=== PATIENT | female | born 1955 | race Caucasian/White ===

== ENCOUNTER 2022-07-31 18:15 | Emergency (ER) | payer BC, SELFPAY ==
[2022-07-31 18:54] VITALS: BP 157/89; PULSE 72; RESP 18; TEMP 36.7; O2SAT 97; BMI 19.3
--- NOTE | 2022-07-31 19:06 | ED_ITS ---
HPI - General Adult General Time Seen by Provider: 19:07 Date Seen: 07/31/22 Chief complaint: Shoulder Injury/Pain Stated complaint: Shoulder Pain Time Seen by Provider: 07/31/22 18:18 Source: patient Mode of arrival: ambulatory Limitations: no limitations History of Present Illness HPI narrative: Patient is a 67 year white female who 3 weeks ago was doing some gardening and yd work and felt a discomfort in her left anterior shoulder, worse with movement, worse with palpation. No swelling of the arm. She has generally healthy other than some arthritic conditions, she has had a hip replaced. Generally doctors in [place], she was down visiting her father in the morning who had an ulcer bleeding issue today. Her arm has been throbbing today. No anterior chest pain, no neck pain or back pain no falls or injuries. Related Data Home Medications Medication Instructions Recorded Confirmed acetaminophen 325 mg tablet (Pain 325 mg PO Q6H PRN 07/31/22 07/31/22 Relief (acetaminophen)) ibuprofen 400 mg tablet 400 mg PO Q6-8H PRN 07/31/22 07/31/22 Allergies Allergy/AdvReac Type Severity Reaction Status Date / Time Sulfa (Sulfonamide Allergy Verified 07/31/22 18:52 Antibiotics) Review of Systems Status of ROS: Reports: 6 or more systems reviewed and unremarkable except as noted in History and below PFSH PFS Social History Smoking Status: Never smoker How often do you have a drink containing alcohol: never AUDIT-C Alcohol total score: 0 Non-prescribed substance use: denies use Exam Narrative: Exam Narrative: Objective: Vital signs show slightly elevated blood pressure Patient alert orient x3 very pleasant Neck left shoulder exam shows exquisite tenderness in her bicipital tendon over her anterior shoulder. She has got actually full flexion extension but with certain movements she gets a twinge in the arm consistent with her pain. Strength in the upper left upper extremity is symmetric to the right and strong, normal sensation, good peripheral perfusion. Const: Vital Signs, click to edit/add: Vital Signs - 24 hr 07/31/22 18:54 Temperature 98.1 F Pulse Rate [Right Pulse Oximeter] 72 Respiratory Rate 18 Blood Pressure [Ri ght Upper Arm] 157/89 H Pulse Oximetry 97 Oxygen Delivery Me thod Room Air Course Vital Signs Vital signs: Initial Vital Signs Temperature 98.1 F 07/31/22 18:54 Temperature Source Oral 07/31/22 18:54 Pulse Rate 72 07/31/22 18:54 Respiratory Rate 18 07/31/22 18:54 Blood Pressure 157/89 H 07/31/22 18:54 Blood Pressure Mean 111 07/31/22 18:54 Blood Pressure Position Sitting 07/31/22 18:54 Pulse Oximetry 97 07/31/22 18:54 Oxygen Delivery Method 07/31/22 18:54 Vital Signs Temperature 98.1 F 07/31/22 18:54 Pulse Rate 72 07/31/22 18:54 Respiratory Rate 18 07/31/22 18:54 Blood Pressure 157/89 H 07/31/22 18:54 Pulse Oximetry 97 07/31/22 18:54 Oxygen Delivery Method 07/31/22 18:54 Temperature 98.1 F 07/31/22 18:54 Pulse Rate 72 07/31/22 18:54 Respiratory Rate 18 07/31/22 18:54 Blood Pressure 157/89 H 07/31/22 18:54 Pulse Oximetry 97 07/31/22 18:54 Oxygen Delivery Method 07/31/22 18:54 Medical Decision Making MDM Narrative Medical decision making narrative: Patient likely has bicipital tendinitis. Would recommend a sling, offered Medrol as well as Aleve, and at this point she would like to just simply try the leave ice and the sling. She will follow up with [facility] in the next few days. Return here problems or concerns. She is comfortable plan. Sling will be given. Discharge Plan Discharge Clinical Impression: Bicipital tendinitis Patient Disposition: Home w/ Parent or Adult Condition: Stable Additional Instructions: Ice to the left anterior shoulder 10 minutes 6 times a day as possible for the next few days, Aleve 2 twice a day for the next 3-5 days, sling to be worn daily, may take arm out of the sling and do gentle arm circles. Follow up with Orthopedics in the next 3-5 days. Return to ED sooner as needed Activity Level: Light activity Activity Detail: Sling to the left arm and light use of the left upper extremity Discharge Diet: Regular Prescriptions: No Action ibuprofen 400 mg tablet 400 mg PO Q6-8H PRN acetaminophen [Pain Relief (acetaminophen)] 325 mg tablet 325 mg PO Q6H PRN Follow Up/Referrals: Buddy Holland MD [Primary Care Provider] - Stand Alone Forms: brick&mobile Info Instructions
== END 2022-07-31 19:28 | disposition home or self-care (01) ==
LOC: ED 19:17
PROVIDERS: Emergency Provider Family Medicine; PCP Student in an Organized Health Care Education/Training Program
DX: M75.22 Bicipital tendinitis, left shoulder (principal)
CPT/HCPCS: 99283

== ENCOUNTER 2022-08-31 15:10 | Outpatient (RCR) | payer BC, SELFPAY | END 2022-11-17 12:58 | disposition home or self-care (01) | PROVIDERS: PCP Student in an Organized Health Care Education/Training Program; Visit Provider Student in an Organized Health Care Education/Training Program | DX: M54.16 Radiculopathy, lumbar region (principal); M25.512 Pain in left shoulder; Z51.89 Encounter for other specified aftercare; M25.511 Pain in right shoulder | CPT/HCPCS: 97110; 97162 ==

== ENCOUNTER 2022-12-01 15:30 | Outpatient (RCR) | payer BC, SELFPAY | END 2023-04-06 23:59 | disposition home or self-care (01) | PROVIDERS: PCP Student in an Organized Health Care Education/Training Program; Visit Provider Physician Assistant | DX: M25.512 Pain in left shoulder (principal); Z51.89 Encounter for other specified aftercare | CPT/HCPCS: 97110; 97162 ==

== ENCOUNTER 2023-05-16 15:35 | Outpatient (CLI) | payer BC, SELFPAY | END 2023-05-16 15:36 | disposition home or self-care (01) | LOC: NFLDREF 15:42 | PROVIDERS: PCP Internal Medicine; Visit Provider Internal Medicine | DX: Z00.00 Encounter for general adult medical examination without abnormal findings (principal); Z13.6 Encounter for screening for cardiovascular disorders | CPT/HCPCS: 80061 ==

== ENCOUNTER 2023-06-01 15:21 | Outpatient (CLI) | payer BC, SELFPAY ==
--- OUTSIDE RECORDS SUMMARY | 2023-06-01 15:24 | XMS_ITS | Continuity of Care Document ---
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 Name Role Phone Jeevan Avelar MD Unavailable Unavailable Allergies, Adverse Reactions, Alerts Substance Reaction Status Criticality Sulfa (Sulfonamide Antibiotics) Hives Active No Information Medications Medication Instructions Dosage Effective Dates (start - stop) Status Comments CALCIUM (unknown strength) Not Available - Active VITAMIN D3 (unknown strength) Not Available - Active ADVIL (unknown strength) Not Available - Active MULTIVITAMINS (unknown strength) Not Available - No Longer Active Procedures Procedure Date Office/Outpatient Visit,Est, Mod 2019 X-Ray Exam Of Neck Spine, 4+ Views Office/Outpatient Visit,Est, Mod 2018 Office/Outpatient Visit,Est, Mod 2018 Office/Outpatient Visit,Est, Mod 2018 X-Ray Exam Of Neck Spine2-3 Views X-Ray Exam Lower Spine 2-3 Views 2018 Office/Outpatient Visit,Est, Mod 2017 X-Ray Exam Lower Spine 2-3 Views 2017 Office/Outpatient Visit,Est, Mod 2017 X-Ray Exam Lower Spine 2-3 Views 2017 Office/Outpatient Visit,Est, Mod 2016 X-Ray Exam Lower Spine 2-3 Views 2016 Postop Followup Visit X-Ray Exam Lower Spine 2-3 Views 2016 Arthdsis Post/Posterolatrl/Postinterbody Lumbar Insert Spine Fixation, Posterior 2016 Insert interbody cage w/fusion 17 Allograft, Spine Surg, Morselized Autograft, Spine Surgery, Local 017 Pa Arthdsis Post/Posterolatrl/Postinterb tsering Lumbar Pa Assist Insert Spine Fixation, Posteri or PA Assist Insert interbody cage w/fusion Office/Outpatient Visit,Est, Mod 2016 Office/Outpatient Visit,New, Mod 2016 X-Ray Exam Lwr Spine, Min 4 Views Office/outpatient visit,est, mod 2010 X-ray exam lower spine 2-3 views 2010 Office/outpatient visit,est, mod 2009 X-ray exam lower spine 2-3 views 2009 Advance Directives Directive Yes / No Effective Date File Name No Information Encounters Encounter Description Practice Location Reason(s) For Visit Diagnoses Date Provider Providers Copied on Encounter Office/Outpa tient Visit,Est, Mod [facility], [address] [place] [address], [id number], [place] tel:[phone] [facility] Other spondylosis with myelopathy, cervical regionSpinal stenosis, lumbar region with neurogenic claudicationO ther spondylosis, lumbar regionArthrod esis status 0 Rosio Jeevan. [facility], [address] [place] [address], [address], [id number], [place]. tel:[phone] Office/Outpa tient Visit,Est, Mod [facility], [address] [place] [address], [id number], [place] [phone] [facility] Spinal stenosis, lumbar region with neurogenic claudicationA rthrodesis statusOther spondylosis with myelopathy, cervical regionOther spondylosis, lumbar region 201 9 Rosoi Jeevan. [facility], [address] [place] [address], [address] [place] [address], [id number], [place]. tel:[phone] Office/Outpa tient Visit,Est, Mod [facility], [address] [place] [address], [id number], [place] tel: [phone] [facility] Arthrodesis statusOther spondylosis, lumbar regionOther spondylosis with myelopathy, cervical regionSpinal stenosis, lumbar region with neurogenic claudication 9 Rosio Chew. [facility], [address], [address], [place], [place], [id number], . tel: [phone] Office/Outpa tient Visit,Est, Mod [facility], [address], [place], [place], [id number], [place] tel: [phone] [facility] Arthrodesis statusSpinal stenosis, lumbar region with neurogenic claudicationO ther spondylosis, lumbar regionOther spondylosis with myelopathy, cervical region 9 Pelkola Kimberlyn. [facility], [address] [place] [address] [place] [address], [id number], . tel: [phone] Office/Outpa tient Visit,Est, Mod [facility], [address] [place] [address], [id number], [place] tel: [phone] [facility] Spinal stenosis, lumbar region with neurogenic claudicationA rthrodesis status Pelkola Kimberlyn. [facility], [address] [place] [address] [address], [place], [place], [id number], . tel:[phone] Office/Outpa tient Visit,Est, Mod [facility], [address], [place], [place], [id number], [place] tel: [phone] [facility] Spinal stenosis, lumbar region with neurogenic claudicationA rthrodesis status 8 Pelkola Kimberlyn. [facility], [address] [place] [address] [address], [place], [id number], . tel:[phone] Office/Outpa tient Visit,Est, Mod [facility], [address] [place] [address], [id number], [place] tel: [phone] [facility] Spondylolisth esis, lumbar regionSpinal stenosis, lumbar region with neurogenic claudication Dec 7 Pelkola Kimberlyn. [facility], [address], [place], [place], [id number], [place]. tel:[phone] [facility], [address], [place], [place], [id number], [place] tel:[phone] [facility] Spondylolisth esis, lumbar regionSpinal stenosis, lumbar region Sep- 7 Pelkola Kimberlyn. [facility], [address] [place] [address] Street [address], [place], [place], [id number], [place]. tel:[phone] [facility], [address], [place], [place], [id number], [place] tel:[phone] [facility] No Information 7 Rosio Chew. [facility], [address] [place] [address], [address], [place], [place], [id number], [place]. tel:[phone] Office/Outpa tient Visit,Est, Mod [facility], [address], [place], [place], [id number], [place] tel:[phone] [facility] Other spondylosis, lumbar regionRadicul opathy, lumbar region Nov-2 7 Rosio Chew. [facility], [address], [address], [place], [place], [id number], [place]. tel:[phone] Referring Provider: Jeevan Avelar, [facility] [address] [place] [address], [address], [place], [address] . tel:[phone] Office/Outpa tient Visit,New, Mod [facility], [address], [place], [place], [id number], [place] tel:[phone] [facility] Other spondylosis, lumbar region Nov-0 7 No Information Office/outpa tient visit,est, mod Z [facility] [place], [address], [place], [address], [place] tel:[phone] [facility] No Information 1 Rosio Chew. [facility], [address], [address], [place], [place], [id number], . tel:[phone] Referring Provider: Jeevan Avelar, [facility] [address], [address], [place], [address] . tel:[phone] Office/outpa tient visit,est, mod Z [facility], [address] [place], [place] [address], [place], [address], tel:[phone] [facility] No Information 8201 0 Rosio Chew. [facility], [address] [place] [address], [address], [place], [place], [id number], . tel:[phone] Referring Provider: Jeevan Avelar, [facility] [address], [address], [place], [address] . tel:[phone] Family History Family Member Type Diagnosis Age At Onset No Information Payers Payer name Insurance type Covered democrat ID Marie hale(s) [facility] [id number] [facility] [id number] Social History Type Description Quantity Date Captured Comments Alcohol Use Details Unknown Caffeine Use Details Unknown Tobacco Use Status Never smoked tobacco 2019 Smoking Status Never smoker Sex Female Vital Signs Date / Time: Height Weight BMI Pulse Rate Blood Pressure Temperature Respiratory Rate Body Surface Area Head Circumference Head Circ. Percentile Wt./Cristhian. Percentile BMI percentile Pulse Ox Inhaled Ox 11:04 AM 65.25 in 55.338 kg (122.00 lbs) 20.1 5 kg/m eter (2) 99.00 F Chief Complaint And Reason For Visit No Information Reason For Referral Reason For Referral No Information Plan Of Treatment Date Type Action Status Future Order: Radiology Order AP Lateral Cervical (APlatcerv), Ordered on: Ordered Future Order: Radiology Order AP /Lat/Flex/Ext Lumb (APLatFlExL), Ordered on: Ordered History Of Present Illness Encounter Date Complaint History Of Prese nt Illness No Information Functional Status Date Functional Assessmen t No Information Instructions Date Instruction Additional Infor mation No Information Assessments Type Assessment Date assessment Other spondylosis with myelopath y, cervical region assessment Spinal stenosis, lumbar region w ith neurogenic claudication assessment Other spondylosis, lumbar region assessment Arthrodesis status Patient Care Teams Name Effective Dates (start - stop) Status Members No Information
--- NOTE | 2023-06-01 15:30 | CRLHL7_ITS ---
For Patients: As a result of the Century Cures Act, medical imaging exams and procedure reports are released immediately into your electronic medical record. You may view this report before your referring provider. If you have questions, please contact your health care provider. DXA BONE MINERAL DENSITY STUDY Reason for exam: Screening. Current height (in): 65.0. Weight (lb): 117. Menopause age: 60. Ethnicity: White. 1. Have you had a previous hip or vertebral fracture? No. 2. Have you had any fractures during your adult life which did not result from significant trauma (e.g., auto accident) No. 3. Did either of your parents have a hip fracture? No. 4. Do you smoke? No. 5. Have you ever taken Glucocorticoids? No. 6. Do you have rheumatoid arthritis? No. 7. Do you have secondary osteoporosis? No. 8. Do you drink 3 or more alcoholic drinks per day? No. 9. Are you being treated for osteoporosis? No. 10. Have you ever taken any of the following medications: ANSWER: YES, vitamin D and calcium. Actonel, Evista, Fosamax, Miacalcin, Reclast, Boniva, Forteo, HRT (i.e. estrogen/hormone therapy), Protelos, Prolia, other ??? please specify. 11. Do you have any of the following medical conditions: ANSWER: YES, HYSTERECTOMY, MATT, TKA, 3-SPINE FUSION. Anorexia or bulimia, asthma or emphysema, end stage renal disease, hyperparathyroidism, any seizure disorders, cancer, inflammatory bowel diseases. 12. What was your maximum height (inches)? 66. 13. Do you perform weight bearing exercise regularly? Yes. 14. Do you regularly consume dairy products? Yes. 15. Do you drink caffeinated beverages? Yes. 16. At what age did your period start? 15. 17. Are you premenopausal? No. 18. How many full term pregnancies have you had? 0. 19. Have you ever missed your period for more than 6 months in a row (not including or menopause)? No. TECHNIQUE: Bone mineral density study was performed using the [employer]. FINDINGS: The results of the study expressed as bone mineral density (BMD) are as follows: Neck Left: BMD: 0.736 g/cm2. T-score: -1.0. Z-score: 0.5. Total Left: BMD: 0.795 g/cm2. T-score: -1.2. Z-score: 0.1. Radius Left 33%: BMD: 0.573 g/cm2. T-score: -2.0. Z-score: -0.3. IMPRESSION: Osteopenia. *Comparison exams done prior to 02/2020 were performed on different unit, [employer]. FRAX 10-year Fracture Risk Major Osteoporotic Fracture: 7.0 percent Hip Fracture: 0.6 percent Reported Risk Factors: [place] () Neck BMD= 0.736, BMI= 19.5 Arnaldo Martinez M.D. Diagnostic Radiologist [email or web address] JASON/dale DW/Dictated by: Arnaldo Martinez MD @ 06/02/2023 12:18:00 PM (Electronically Signed)
== END 2023-06-01 15:22 | disposition home or self-care (01) ==
LOC: RAD 15:22
PROVIDERS: PCP Internal Medicine; Visit Provider Internal Medicine
DX: Z13.820 Encounter for screening for osteoporosis (principal); M85.88 Other specified disorders of bone density and structure, other site
CPT/HCPCS: 77080

== ENCOUNTER 2023-06-02 15:07 | Outpatient (CLI) | payer BC, SELFPAY ==
--- OUTSIDE RECORDS SUMMARY | 2023-06-02 15:10 | XMS_ITS | Continuity of Care Document ---
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 [facility], [address] [place] [address], [address], [id number], [place]. tel:[phone] Office/Outpa tient Visit,Est, Mod [facility], [address] [place] [address], [id number], [place] [phone] [facility] Spinal stenosis, lumbar region with neurogenic claudicationA rthrodesis statusOther spondylosis with myelopathy, cervical regionOther spondylosis, lumbar region 201 9 Rosio Jeevan. [facility], [address] [place] [address], [address] [place] [address], [id number], [place]. tel:[phone] Office/Outpa tient Visit,Est, Mod [facility], [address] [place] [address], [id number], [place] tel: [phone] [facility] Arthrodesis statusOther spondylosis, lumbar regionOther spondylosis with myelopathy, cervical regionSpinal stenosis, lumbar region with neurogenic claudication 9 Rosio Chew. [facility], [address], [address], [place], [place], [id number], . tel: [phone] Office/Outpa tient Visit,Est, Mod [facility], [address], [place], [place], [id number], [place] tel: [phone] [facility] Arthrodesis statusSpinal stenosis, lumbar region with neurogenic claudicationO ther spondylosis, lumbar regionOther spondylosis with myelopathy, cervical region 9 Pelkola Kimberlyn. [facility], [address] [place] [address] [place] [address], [id number], . tel: [phone] Office/Outpa tient Visit,Est, Mod [facility], [address] [place] [address], [id number], [place] tel: [phone] [facility] Spinal stenosis, lumbar region with neurogenic claudicationA rthrodesis status Pelkola Kimberlyn. [facility], [address] [place] [address] [address], [place], [place], [id number], . tel:[phone] Office/Outpa tient Visit,Est, Mod [facility], [address], [place], [place], [id number], [place] tel: [phone] [facility] Spinal stenosis, lumbar region with neurogenic claudicationA rthrodesis status 8 Pelkola Kimberlyn. [facility], [address] [place] [address] [address], [place], [id number], . tel:[phone] Office/Outpa tient Visit,Est, Mod [facility], [address] [place] [address], [id number], [place] tel: [phone] [facility] Spondylolisth esis, lumbar regionSpinal stenosis, lumbar region with neurogenic claudication Dec 7 Pelkola Kimberlyn. [facility], [address], [place], [place], [id number], [place]. tel:[phone] [facility], [address], [place], [place], [id number], [place] tel:[phone] [facility] Spondylolisth esis, lumbar regionSpinal stenosis, lumbar region Sep- 7 Pelkola Kimberlyn. [facility], [address] [place] [address] Street [address], [place], [place], [id number], [place]. tel:[phone] [facility], [address], [place], [place], [id number], [place] tel:[phone] [facility] No Information 7 Rosio Chew. [facility], [address] [place] [address], [address], [place], [place], [id number], [place]. tel:[phone] Office/Outpa tient Visit,Est, Mod [facility], [address], [place], [place], [id number], [place] tel:[phone] [facility] Other spondylosis, lumbar regionRadicul opathy, lumbar region Nov-2 7 Rosio Chew. [facility], [address], [address], [place], [place], [id number], [place]. tel:[phone] Referring Provider: Jeevan Avelar, [facility] [address] [place] [address], [address], [place], [address] . tel:[phone] Office/Outpa tient Visit,New, Mod [facility], [address], [place], [place], [id number], [place] tel:[phone] [facility] Other spondylosis, lumbar region Nov-0 7 No Information Office/outpa tient visit,est, mod Z [facility] [place], [address] [facility], [place], [address], [place] tel:[phone] [facility] No Information 1 Rosio Chew. [facility], [address], [address], [place], [place], [id number], . tel:[phone] Referring Provider: Jeevan Avelar, [facility] [address], [address], [place], [address] . tel:[phone] Office/outpa tient visit,est, mod Z [facility], [address] [place], [place] [address], [place], [address], tel:[phone] [facility] No Information 8201 0 Rosio Chew. [facility], [address] [place] [address], [address], [place], [place], [id number], . tel:[phone] Referring Provider: Jeevan Avelar, [facility] [address], [address], [place], [address] . tel:[phone] Family History Family Member Type Diagnosis Age At Onset No Information Payers Payer name Insurance type Covered green party ID Marie hale(s) [facility] [id number] [facility] [id number] Social History Type Description Quantity Date Captured [...]
--- NOTE | 2023-06-02 15:20 | CRLHL7_ITS ---
For Patients: As a result of the Cures Act, medical imaging exams and procedure reports are released immediately into your electronic medical record. You may view this report before your referring provider. If you have questions, please contact your health care provider. BILATERAL SCREENING MAMMOGRAM WITH COMPUTER-AIDED DETECTION AND TOMOSYNTHESIS TECHNIQUE: CC and MLO views were obtained. These mammographic images have been obtained using full-field digital technique. These mammographic images were interpreted with the benefit of computer-aided detection. Breast Tomosynthesis was used in this interpretation. COMPARISON FILM: 05/09/22, 04/27/21, 04/15/20. FINDINGS: The breasts are extremely dense, which lowers the sensitivity of mammography IMPRESSION: There is no radiographic evidence for malignancy. ASSESSMENT: BI-RADS Category 1: Negative RECOMMENDATION: Routine screening mammogram in 1 year. A lay language report of this examination will be provided to the patient. Arnaldo Martniez M.D. Diagnostic Radiologist [email or web address] JASON/ginna Transcribed: 1:31 p.osmani chacko/Dictated by: Arnaldo Martinez MD @ 06/05/2023 12:20:00 PM (Electronically Signed)
== END 2023-06-02 15:08 | disposition home or self-care (01) ==
LOC: MAMMO 15:08
PROVIDERS: PCP Internal Medicine; Visit Provider Internal Medicine
DX: Z12.31 Encounter for screening mammogram for malignant neoplasm of breast (principal); R92.2 Inconclusive mammogram
CPT/HCPCS: 77063; 77067

== ENCOUNTER 2024-05-15 15:41 | Outpatient (CLI) | payer BC, SELFPAY | END 2024-05-15 15:42 | disposition home or self-care (01) | LOC: NFLDREF 15:44 | PROVIDERS: PCP Internal Medicine; Visit Provider Internal Medicine | DX: R51.9 Headache, unspecified (principal); M25.519 Pain in unspecified shoulder | CPT/HCPCS: 84484 ==

== ENCOUNTER 2024-06-07 15:12 | Outpatient (CLI) | payer BC, SELFPAY ==
--- OUTSIDE RECORDS SUMMARY | 2024-06-07 15:15 | XMS_ITS | Encounter Summary ---
Author Organization [facility] Address [address] [place] [id number] Care Team Providers Care Sole Molding Machine Operator Name Role Phone Elsewhere, Pcp Primary Care Provider Unavailabl e Reason for Visit * Outpatient (Routine) - Closed Specialty Diagnoses / Procedures Referred By Shruthi gracia Referred To Contact Orthopedic Surgery Buddy Holland M.D. [address] [place] [phone] Buddy Holland M.D. [address] [place] [phone] Referral ID Status Reason Start Date Expiration Date Visits Re quested Visits Authorized [id number] Closed 04/18/2024 10/18/2025 1 1 Encounter Details Date Type Department Care Team (Late st Contact Info) Description 04/19/2024 9:00 AM CDT Office Visit Department of Orthopedic Surgery in [place], [place] [address] [place] [phone] Buddy Holland M.D. [address] [place] [phone] Fusion Cervical Spine Status Post (Primary Dx) Social History Tobacco Use Types Packs/Day Years Used Date Smoking Tobacco: Never Smokeless Tobacco: Never Alcohol Use Standard Drinks/Week Comments Yes 3 (1 standard drink = 0.6 oz pur e alcohol) [facility] Utilities Answer Date Recorded In the past 12 months has e electric, gas, oil, or water company threatened to shut off services in your home? No 03/14/2024 Humiliation, Afraid, Rape, and Kick questionnair e Answer Date Recorded Within the last year, have y ou been afraid of your partner or ex-partner? No 03/14/2024 Within the last year, have y ou been humiliated or emotionally abused in other ways by your partner or ex-partner? No Within the last year, have y ou been kicked, hit, slapped, or otherwise physically hurt by your partner or ex-partner? No 03/14/2024 Within the last year, have y ou been raped or forced to have any kind of sexual activity by your partner or ex-partner? No 03/14/2024 Social Connection and Isolat ion Panel [NHANES] Answer Date Recorded In a typical week, how many times do you talk on the phone with family, friends, or neighbors? Twice a week 07/01/2022 How often do you get togethe r with friends or relatives? Once a week 07/01/2022 How often do you attend [facility] or scientologist services? More than 4 times per year 07/01/2022 Do you belong to any clubs o r organizations such as buddhism groups, unions, fraternal or athletic groups, or school groups? Yes 07/01/2022 How often do you attend meet ings of the clubs or organizations you belong to? More than 4 times per year 07/01/2022 Are you , , di vorced, , never , or living with a partner? 07/01/2022 AUDIT-C Answer Date Recorded Q1: How often do you have a drink containing alc ohol? 2-3 times a week 07/01/2022 Q2: How many drinks containi ng alcohol do you have on a typical day when you are drinking? 1 or 2 07/01/2022 Q3: How often do you have si x or more drinks on one occasion? Never 07/01/2022 Overall Financial Resource Strain (CARDIA) Answe r Date Recorded How hard is it for you to pa y for the very basics like food, housing, medical care, and heating? Not very hard 08/02/2023 [facility] - Occupational Stress Questionnaire Answer Date Recorded Do you feel stress - tense, restless, nervous, or anxious, or unable to sleep at night because your mind is troubled all the time - these days? To some extent 07/01/2022 Exercise Vital Sign Answer Date Recorde d On average, how many days pe r week do you engage in moderate to strenuous exercise (like a brisk walk)? 5 days 08/02/2023 On average, how many minutes do you engage in exercise at this level? 40 min 08/02/2023 Hunger Vital Sign Answer Date Recorded Within the past 12 months, y ou worried that your food would run out before you got the money to buy more. Never true 03/14/20 24 Within the past 12 months, t he food you bought just didn't last and you didn't have money to get more. Never true 03/14/2024 PRAPARE - Transportation Answer Date Re corded In the past 12 months, has l ack of transportation kept you from medical appointments or from getting medications? No 02/17 In the past 12 months, has l ack of transportation kept you from meetings, work, or from getting things needed for daily living? No 03/14/2024 Nutrition Answer Date Recorded On average, how many serving s of fruits and vegetables do you eat per day (serving size is equal to 1 cup or approximately the size of a tennis ball)? 3-5 08/02/2023 Dental Answer Date Recorded Dental: Regular Dentist Yes 12/25/19 Employment Answer Date Recorded Employment status Employed and actively working without restrictions 08/02/2023 Housing Stability Answer Date Recorded What is your living situation today? I have a [place] place to live 03/14/2024 Education Answer Date Recorded What is the highest level of school you have completed or the highest degree you have received? Bachelor's degree (e.g., BA, AB, BS) 03/08/2019 Sex and Gender Information Value Date Recorded Sex Assigned at Female 03/31/2018 3:46 PM CDT Gender Identity Female 03/31/2018 3:46 PM CDT Sexual Orientation Straight 11/09/2020 5: 08 PM LPN HOME HEALTH documented as of this encounter Progress Notes * Buddy Holland M.D. - 04/19/2024 9:00 AM CDT SUBJECTIVE HISTORY OF PRESENT ILLNESS Mrs. Arroyo returns to us today. Of note, she is status post previous anterior cervical fusion with myself several years ago back in 2020. She has done well from this. Unfortunately, she has had some mild exacerbation of some neck pain and paresthesias. This seems to be somewhat improved from whenwe had last spoken to her. Nonetheless, given concern, she did re-present today for further evaluation. OBJECTIVE PHYSICAL EXAMINATION Musculoskeletal: She is neurologically unchanged since our last visit. Her incision is well healed.Her strength is full in bilateral upper and lower extremities. She has no focal deficits. DIAGNOSTICS Imaging including x-rays and MRI scan of the cervical spine demonstrate stable well-healed fusion from C4-7 with evidence of some adjacent segment disk degeneration and moderate stenosis at the C3-4 segment with no active cord signal change. ASSESSMENT / PLAN At this time, I had a long discussion with the patient. Certainly overall, while she does have someadjacent segment stenosis at C3-4, she seems to be mildly symptomatic from it at this time. As such, I would recommend continued observation nonoperative treatment, and we did discuss the signs and symptoms to watch for with regard to a progressive myelopathy or radiculopathy. She expressed understanding and agreement of the plan. She understands how to contact my service back. All questions wereanswered. Buddy Holland M.D. CT CT Job ID: [id number] documented in this encounter Plan of Treatment Upcoming Encounters Date Type Department Care Team (Late st Contact Info) Description 06/20/2024 3:00 PM CDT Clinical Communication Virtual Review in [place], [place] 200 [place] [phone] 06/25/2024 1:15 PM CDT Appointment Department of Radiology, [facility], in [place], [place] [address] [place] [phone] Peace Key M.D. 06/25/2024 2:30 PM CDT Office Visit Department of Orthopedic Surgery in [address] [phone] Henry Rey P.A.-C., M.S. [address] [place] [phone] 08/20/2024 2:00 PM LPN HOME HEALTH Clinical Support Department of Sports Medicine in [address] [phone] Yan Stewart M.D. [address] [place] [phone] Darius Thompson P.T., D.P.T., [facility]-ABPTS [address] [place] [phone] documented as of this encounter Visit Diagnoses Diagnosis Fusion Cervical Spine Status Post- Primary documented in this encounter Care Teams Sole Molding Machine Operator Relationship Specialty Start Date End Date Elsewhere, Pcp PCP - General Family Medicine 02/11/21 documented as of this encounter
--- OUTSIDE RECORDS SUMMARY | 2024-06-07 15:15 | XMS_ITS ---
Author Organization [facility] Address [address] [place] [address] Care Team Providers Care Water Purifier Operator Name Role Phone Unavailable Unavailable Unavailable Surgery Details Not on file Complications Check Surgery Details section. Procedure Estimated Blood Loss Check Surgery Details section. Procedure Findings Check Surgery Details section. Procedure Specimens Taken Check Surgery Details section.
--- OUTSIDE RECORDS SUMMARY | 2024-06-07 15:15 | XMS_ITS | Encounter Summary ---
Author Organization [facility] Address [address] [place] [phone] Care Team Providers Care Green Marketing Analyst Name Role Phone Elsewhere, Pcp Primary Care Provider Unavailabl e Reason for Referral * Outpatient (Routine) - Closed Specialty Diagnoses / Procedures Referred By Shruthi gracia Referred To Contact Orthopedic Surgery Buddy Holland M.D. [address] [place] [phone] Buddy Holland M.D. [address] [place] [phone] Referral ID Status Reason Start Date Expiration Date Visits Re quested Visits Authorized [id number] Closed 04/18/2024 10/18/2025 1 1 Encounter Details Date Type Department Care Team (Late st Contact Info) Description 04/18/2024 Orders Only Department of Orthopedic Surgery in [place], [place] [address] [place] [phone] Buddy Holland M.D. [address] [place] [address] [place] [phone] Social History Tobacco Use Types Packs/Day Years Used Date Smoking Tobacco: Never Smokeless Tobacco: Never Alcohol Use Standard Drinks/Week Comments Yes 3 (1 standard drink = 0.6 oz pur e alcohol) [facility] Utilities Answer Date Recorded In the [...] week 07/01/2022 How often do you attend [facility] or yazidism services? More than 4 times per year 07/01/2022 Do you belong to any clubs o r organizations such as rastafari groups, unions, fraternal or athletic groups, or [...] care, and heating? Not very hard 08/02/2023 [facility] of Occupat ional 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 06/25/2024 2:30 PM CDT Office Visit Department of Orthopedic Surgery in [address] [phone] Henry Rey, PDanayA.-Polo., M.S. [address] [place] [phone] 08/20/2024 2:00 PM STONE DRILLER HELPER Clinical Support Department of Sports Medicine in [address] [phone] Yan Stewart M.D. [address] [place] [phone] Darius Thompson P.T., D.P.T., [facility]PT[facility] [address] [place] [phone] Scheduled Referrals Name Type Priority Associated Diagnoses Order Schedule Orthopedic Surgery office visit (clinic) Outpatient Referral Routine Expected: 04/18/2024, Expires: 07/19/2025 documented as of this encounter Visit Diagnoses Not on filedocumented in this encounter Care Teams Green Marketing Analyst Relationship Specialty Start Date End Date Elsewhere, Pcp PCP - General Family Medicine 02/11/21 documented as of this encounter
--- OUTSIDE RECORDS SUMMARY | 2024-06-07 15:15 | XMS_ITS | Encounter Summary ---
Author Organization [facility] Address [address] [place] [address] Care Team Providers Care Supervising Nurse Name Role Phone Elsewhere, Pcp Primary Care Provider Unavailabl e Reason for Referral * Outpatient (Routine) - Authorized Specialty Diagnoses / Procedures Referred By Shruthi gracia Referred To Contact Diagnoses Rotator Cuff Disorder Left Procedures Sports Medicine PT/AT - Ongoing Mao Cohen PCally-Beth [address] [place] [address] [facility] Referral ID Status Reason Start Date Expiration Date V isits Requested Visits Authorized [id number] Authorized 05/29/2024 05/29/2025 99 99 Reason for Visit * Outpatient (Routine) - Authorized Specialty Diagnoses / Procedures Referred By Contac t Referred To Contact Diagnoses Rotator Cuff Disorder Left Procedures Sports Medicine PT/AT - Ongoing Rst Spm Renetta [address] [place] [address] [facility] Referral ID Status Reason Start Date Expiration Date V isits Requested Visits Authorized [id number] Authorized 03/12/2024 03/12/2025 99 99 Encounter Details Date Type Department Care Team (Late st Contact Info) Description 05/29/2024 1:00 PM CDT Clinical Support Department of Sports Medicine in [place], [place] [address] [place] [phone] Yan Stewart M.D. [address] [place] [phone] Dianne Brunson P.T., D.P.T. [address] [place] [phone] Rotator Cuff Disorder Left (Primary Dx) Social History Tobacco Use Types Packs/Day Years Used Date Smoking Tobacco: Never Smokeless Tobacco: Never Alcohol Use Standard Drinks/Week Comments Yes 3 (1 standard drink = 0.6 oz pur e alcohol) [facility] Utilities Answer Date Recorded In the past 12 months has [employer], gas, oil, or water [employer] threatened to shut off services in your [...] week 07/01/2022 How often do you attend [facility] or mormon services? More than 4 times per year 07/01/2022 Do you belong to any clubs o r organizations such as shinto groups, unions, fraternal or athletic groups, or [...] care, and heating? Not very hard 08/02/2023 [facility] of Occupat ional Health - Occupational Stress Questionnaire Answer Date Recorded [...] your living situation today? I have a [facility] place to live 03/14/2024 Education Answer Date Recorded What is the highest level of school you have completed or the highest degree you have received? Bachelor's degree (e.g., BA, AB, BS) 03/08/2019 Sex and Gender Information Value Date Recorded Sex Assigned at Female 03/31/2018 3:46 PM CDT Gender Identity Female 03/31/2018 3:46 PM CDT Sexual Orientation Straight 11/09/2020 5: 08 PM MSWS documented as of this encounter Progress Notes * Michael Bhat, SPT - 05/29/2024 1:00 PM CDT Sports Medicine Physical Therapy post-operative Evaluation and Treatment SUBJECTIVE Patient's Name: Flaca Ty Cruz Referring Provider: No ref. provider found Visit Diagnosis: 1. Rotator Cuff Disorder Left Reason for Referral: Occupational therapy evaluation and treatment: pre-op Onset Date: 12/05/23 Payor: [employer] / Plan: [facility] [place] / Product Type: PPO / PERTINENT MEDICAL / SURGICAL HISTORY: Patient Active Problem List Diagnosis Tendinitis Bicipital Right Sprain Subscapularis Muscle Initial Right Fusion Cervical Spine Status Post Primary Osteoarthritis Hip Right Arthritis Spine (HCC) Pain Hip Right Dystrophic Toenail Onycholysis Callus [place] Foot Pain Foot Right Neuropathy Peripheral Pes Planus Right Hammer Toe Acquired Left Onychomycosis Pain Shoulder Left Primary Osteoarthritis Hip Left Past Surgical History: Procedure Laterality Date ARTHROPLASTY REPLACEMENT TOTAL HIP Right 03/24/2022 Procedure: Right ARTHROPLASTY REPLACEMENT TOTAL HIP.; Surgeon: Chris Zhang M.D.; Location: [facility] OR ARTHROPLASTY REPLACEMENT TOTAL HIP Left 03/14/2024 Procedure: Left ARTHROPLASTY REPLACEMENT TOTAL HIP.; Surgeon: Chris Zhang M.D.; Location: [facility] OR BACK SURGERY x 2 BUNIONECTOMY Bilateral FUSION SPINE ANTERIOR CERVICAL N/A 02/16/2021 Procedure: C5 corpectomy, C4-7 Fusion.; Surgeon: Buddy Holland M.D.; Location: [facility] ROMB OR JOINT REPLACEMENT Right 2021 TKA, revision 2005 OTHER CONVERTED SHX (SEE COMMENT) N/A 03/13/2006 >Manipulation under anesthesia. Knee OTHER SURGICAL HISTORY bunion both feet feet double bunio REPAIR ROTATOR CUFF SHOULDER Left 12/05/2023 Procedure: Left shoulder arthroscopic rotator cuff repair, biceps tenodesis, labral debridement, chondroplasty, acromioplasty, arthroscopic AC joint debridement.; Surgeon: Yan Stewart M.D.; Location: [facility] 15 OR SPINE SURGERY 2016 and January 1997 TOTAL HYSTERECTOMY 1995 Flaca Arroyo is a 68 y.o. female who presents to sports medicine physical therapy status post Left RTC repair, biceps tenodesis, SAD, labral debridement on 12/05/2023. She presents for evaluation and instruction in restrictions and exercise. Patient Comments: Patient had total hip surgery on 03/14/2024. Patient took a break from PT at this time but resumed PT without loss of function. Patient did start to have an increase in pain and believes she had some decrease in ROM in early to mid March. Patient experiences a lot of pain at night. Patient has had difficulties with side effects from anti-inflammatories. Patient also reports havingdifficulty with controlling steering wheel and opening/closing doors since pain increased in March. 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 Diagnostic Tests: Imaging No results found. PHYSICAL EXAM Pain: 4-04/27 new- 12/26, 12/26, 04/27 Observation: Range of motion: AROM: R shoulder- Full range of motion; Left Shoulder: flexion- 160, Abduction- 160, External Rotation- about 25, Extension: Full, Internal Rotation- L4 (right side was T10) Strength: Handheld Dynamometer (lbs) Symmetry % Date: 05/29/2024 Shoulder Left Right (Inv/Uninv) Comments Flexion @ 90?? 4.9* 14.4 34% Pain in anterior shoulder/arm Abduction @ 90?? 12.6* 14.4 88% Pain in anterior shoulder/arm ER @ side 6* 12.2 49% Most painful in anterior shoulder/arm IR @ side 8.9 12 74% Extension 9.8 11.8 83% QuickDASH: 54% (82% previously) TREATMENT Shoulder reassessment Sgym with Dr. Stewart - Patient's motion and strength are good and expected at this time but pain management should be prioritized. Patient should use ce 3-4 times per day to help with pain and give shoulder some rest Went over HEP All questions answered and addressed Access Code: [email or web address] URL: [email or web address] Date: 05/29/2024 Prepared by: Julissa Brunson Program Notes Re-start with isometrics until pain-free. Continue with wall slides, low rows, pulleys. Re-start ice 2-3x/day. Exercises - Isometric Shoulder External Rotation at Wall - 5-10 seconds hold - Standing Isometric Shoulder Internal Rotation at Doorway - 5-10 seconds hold - Isometric Shoulder Abduction at Wall - 5-10 seconds hold - Isometric Shoulder Flexion at Wall - 5-10 seconds hold - Isometric Shoulder Extension at Wall - 5-10 seconds hold Assessment Clinical Impression: Flaca is a 68 y.o. female who presents status post L RTC repair. She was able to demonstrate weight bearing restrictions and verbalize understanding of home exercise program and post-operative restrictions. Flaca would benefit from skilled physical therapy to address impairments and limitations related to surgery. I anticipate she will be able to return to prior level of function with continued skilled physical therapy. Flaca tolerated today's session well. Update 05/29/2024: Flaca is making anticipated progress.Flaca recently had hip surgery on 03/14/2024. At time of hip surgery, Flaca took break from shoulder rehab. Patient has since resumed PT and has been working on ROM and strength but has been limited by pain. Her internal rotation is the most limited for range of motion (L4 involved vs. T10 uninvolved). ER rotation and flexion strength are the most limited (49% and 34% of involved strength) both were pain limited. Patient has improved Quickdash score. Patient has been having increasing night pain and pain in general since early March. Patient was educated on using ice and rest to modulate pain for about a week before resuming strength exercises. Patient will continue to work on range of motion and will resume strength exercises when pain isbetter managed starting with isometrics. Rehab Potential: Ms. Arroyo has good potential to achieve established physical therapy goals within the time frame outlined below, provided she actively participates in her physical therapy treatment plan and home program. Functional Goals and Timeframes: PT Outpatient Goals PT Goal #1: Verbalize understanding of post op protcol -Met PT Goal #1 Date: 12/25/23 PT Goal #2: ROM 0-120 within 12 weeks PT Goal #2 Date: 03/18/24 PT Goal #3: Perform HEP as tolerated with assist -Met PT Goal #3 Date: 01/01/24 Plan Ms. Arroyo was educated regarding evaluative findings, diagnosis, prognosis, potential risks and benefits of rehabilitation interventions. A collaborative effort was used to establish goals and planof care. She was informed of her right to make decisions regarding her care, including refusal of examination or treatment or selection of services from another provider if desired. The treatment plan may be progressed or modified based upon her response to treatment. Treatment Plan: Start of Plan of Care: 05/29/2024 Treatment interventions may include: Plan Comments: Patient will continue with local PT and return in 3 months for Sgym. Patient's focusright now will be reducing pain with ice and rest. Patient will continue range of motion exercises and will resume isometric strength exercises when pain is better managed. Patient will progress fromisometric shoulder exercises when these are well tolerated. Patient agrees with the plan of care and goals Time Spent with Patient Therapeutic Interventions Therapeutic Exercise (min): 35 min Time Tracking Total Timed Units (min): 35 min Total Treatment Time (min): 35 min CAMILLE Cardenas Associated attestation - Dianne Brunson P.T., D.P.T. - 05/29/2024 7:13 PM CDT This therapist has reviewed all documentation and supervised today's session. This therapist agreeswith the plan of care developed in collaboration with the patient. * Yan Stewart M.D. - 05/29/2024 1:00 PM CDT REASON FOR FOLLOW-UP Flaca Arroyo is a 68 y.o. female who presents for follow-up approximately 6 months after shoulder surgery. HISTORY OF PRESENT ILLNESS Overall, she feels things are progressing. She did undergo hip replacement about 3 months after rotator cuff surgery. During that time she had a take a break on her shoulder physical therapy and she did ambulate with crutches/walker for period of time. She states that the shoulder seemed to tolerate that reasonably well. After completing the therapy for hip, she has resumed the PT for her shoulder. Unfortunately, she feels that she has been struggling a little bit and having a difficult time regaining her motion and strength. She also has discomfort in the shoulder. She has tried meloxicam without much benefit. She also tried Tylenol but had increased headaches. In the past, she has used Medrol Dosepak but has not had good success with him PHYSICAL EXAM Surgical incisions are healed. She has full active and passive elbow, wrist, and hand range of motion. Active shoulder ROM: - Abduction: 130 - Forward elevation: 150 - ER: 50 She is firing all muscles around the shoulder; manual muscle testing revealed appropriate strength in all directions. She has 5/5 internal rotation 4+ out of 5 external rotation and abduction. Neurovascularly intact. IMPRESSION/REPORT/PLAN 1. Status post left shoulder arthroscopic rotator cuff repair of the supraspinatus, biceps tenodesis, AC joint debridement, acromioplasty, and chondroplasty on 11/1923 She is doing reasonably well after surgery and it making forward progress. We are following the [facility] STANDARD Rotator Cuff Repair Rehabilitation Protocol. She did have a bit of a setback during her rehab due to the total hip replacement. Despite this, I still think her range of motion and strength are an excellent spot to be 6 months out from this surgery. However, she does still have painwith this and I would much prefer that she have the current function she has but be pain-free and she was in agreement. Accordingly, we are going to have her start icing the shoulder regularly which she has not been doing in the last few weeks. We are going to have her take a break on PT for the next week to see if we can get things calmed down. She will then resume physical therapy in 1-2 weeks and progress as tolerated.. We will plan to see her back in 2-3 months with PT. If any issues, questions, or concerns arise, wehave encouraged the patient contact our team. documented in this encounter Plan of Treatment Upcoming Encounters Date Type Department Care Team (Late st Contact Info) Description 06/20/2024 3:00 PM CDT Clinical Communication Virtual Review in [address] [phone] 06/25/2024 1:15 PM CDT Appointment Department of Radiology, [facility], in [address] [phone] Peace Key M.D. 06/25/2024 2:30 PM CDT Office Visit Department of Orthopedic Surgery in [address] [phone] Henry Rey, Jef-Polo., M.S. [address] [place] [phone] 08/20/2024 2:00 PM MSWS Clinical Support Department of Sports Medicine in [address] [phone] Yan Stewart M.D. [address] [place] [phone] Darius Thompson P.T., D.P.T., [facility] [address] [place] [phone] Scheduled Orders Name Type Priority Associated Diagnoses Orde r Schedule Sports Medicine PT/AT - Ongoing Procedures Routine Rotator Cuff Disorder Left Expected: 08/28/2024 (Approximate), Expires: 11/26/2024 documented as of this encounter Visit Diagnoses Diagnosis Rotator Cuff Disorder Left- Primary documented in this encounter Care Teams Supervising Nurse Relationship Specialty Start Date End Date Elsewhere, Pcp PCP - General Family Medicine 02/11/21 documented as of this encounter
--- OUTSIDE RECORDS SUMMARY | 2024-06-07 15:15 | XMS_ITS | Encounter Summary ---
Author Organization [facility] Address [address] [place] [phone] Care Team Providers Care Audit Spec Name Role Phone Elsewhere, Pcp Primary Care Provider Unavailabl e Encounter Details Date Type Department Care Team (Late st Contact Info) Description 04/29/2024 Orders Only Department of Orthopedic Surgery in [place], [place] [address] [place] [address] Mao Cohen S, P.A.-C. [address] [place] [address] Social History Tobacco Use Types Packs/Day Years Used Date Smoking Tobacco: Never Smokeless Tobacco: Never Alcohol Use Standard Drinks/Week Comments Yes 3 (1 standard drink = 0.6 oz pur e alcohol) [facility] Utilities Answer Date Recorded In the past [...] week 07/01/2022 How often do you attend chur or holiness services? More than 4 times per year 07/01/2022 Do you belong to any clubs o r organizations such as jewish groups, unions, fraternal or athletic groups, or [...] care, and heating? Not very hard 08/02/2023 [facility] of Occupat ional Health - Occupational Stress [...] your living situation today? I have a [facility] place to live 03/14/2024 Education Answer Date Recorded What is the highest level of school you have completed or the highest degree you have received? Bachelor's degree (e.g., BA, AB, BS) 03/08/2019 Sex and Gender Information Value Date Recorded Sex Assigned at Female 03/31/2018 3:46 PM CDT Gender Identity Female 03/31/2018 3:46 PM CDT Sexual Orientation Straight 11/09/2020 5: 08 PM [employer] documented as of this encounter Plan of Treatment Upcoming Encounters Date Type Department Care Team (Late st Contact Info) Description 06/20/2024 3:00 PM CDT Clinical Communication Virtual Review in [place], [place] [address] [place] [address] 06/25/2024 1:15 PM CDT Appointment Department of Radiology, [facility], in [place], [place] [address] [place] [address] Peace Key M.D. 06/25/2024 2:30 PM CDT Office Visit Department of Orthopedic Surgery in [place], [place] [address] [place] [phone] Henry Rey P.A.-C., M.S. [address] [place] [phone] 08/20/2024 2:00 PM [employer] ASS[employer]ANCE INTERN Clinical Support Department of Sports Medicine in [place], [place] [address] [place] [phone] Yan Stewart M.D. [address] [place] [phone] Darius Thompson P.T., D.P.T., [facility] [address] [place] [phone] documented as of this encounter Visit Diagnoses Not on filedocumented in this encounter Care Teams Audit Spec Relationship Specialty Start Date End Date Elsewhere, Pcp PCP - General Family Medicine 02/11/21 documented as of this encounter
--- OUTSIDE RECORDS SUMMARY | 2024-06-07 15:15 | XMS_ITS | Encounter Summary ---
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 [address] [place] [address] [facility] Referral ID Status Reason Start Date Expiration Date Visits Re quested Visits Authorized [id number] Closed 02/21/2024 02/20/2025 1 1 Encounter Details Date Type Department Care Team (Latest Contact Info) Description 04/15/2024 10:44 AM CDT - 04/15/2024 12:03 PM CDT Hospital Encounter Department of Radiology, [facility], in [place], [place] [address] [place] [address] Buddy Holland M.D. [address] [place] [phone] Fusion Cervical Spine Status Post; Stenosis Spinal Cervical Discharge Disposition: Home or Self Care Social History Tobacco Use Types Packs/Day Years Used Date Smoking Tobacco: Never Smokeless Tobacco: Never Alcohol Use Standard Drinks/Week Comments Yes 3 (1 standard drink = 0.6 oz pur e alcohol) [facility] Utilities Answer Date Recorded In the past 12 months has e [employer], gas, oil, or water [employer] threatened to shut off services in your [...] week 07/01/2022 How often do you attend [facility] or episcopal services? More than 4 times per year 07/01/2022 Do you belong to any clubs o r organizations such as uatsdin groups, unions, fraternal or athletic groups, or [...] care, and heating? Not very hard 08/02/2023 [facility] - Occupational Stress Questionnaire Answer Date Recorded [...] your living situation today? I have a [facility] place to live 03/14/2024 Education Answer Date Recorded What is the highest level of school you have completed or the highest degree you have received? Bachelor's degree (e.g., BA, AB, BS) 03/08/2019 Sex and Gender Information Value Date Recorded Sex Assigned at Female 03/31/2018 3:46 PM CDT Gender Identity Female 03/31/2018 3:46 PM CDT Sexual Orientation Straight 11/09/2020 5: 08 PM PEPPER PICKER documented as of this encounter Medications at Time of Discharge Medication Sig Dispensed Refills Start Date End Date aspirin 81 mg chewable tablet Chew 1 tablet (81 mg total) 2 (two) times a day with meals. Recommended to minimize risk of blood clot. Once completed, resume the usual dose of aspirin your primary provider may recommend. 84 tablet 03/14/2024 calcium carbonate-vitamin D3 1,250 mg (500 mg calcium)-5 mcg (200 Unit) per tablet Take 2 tablets by mouth daily with breakfast. clobetasoL (Temovate) 0.05 % cream Apply 1 Application topically 2 (two) times a day. Apply to area as instructed twice daily. 30 g 1 03/19/2024 cyanocobalamin (VITAMIN B12) 1,000 mcg tablet Take 1,000 mcg by mouth daily. DAILY MULTI-VITAMIN ORAL Take 1 tablet by mouth daily. 12/18/2023 oxyCODONE (Roxicodone) 5 mg immediate release tabletIndications:Acut e Pain Exception Take 1 tablet (5 mg total) by mouth every 4 (four) hours as needed for severe pain or score 7-10 of 10 Indication: Acute Pain Exception. 25 tablet 03/14/2024 traMADoL (Ultram) 50 mg tabletIndications:Acut e Pain Exception Take 1-2 tablets (50-100 mg total) by mouth every 8 (eight) hours as needed for pain Indications: Acute Pain Exception. Take 50 mg for pain 3-4. Take 100 mg for pain 5-6 40 tablet 03/14/2024 documented as of this encounter Plan of Treatment Upcoming Encounters Date Type Department Care Team (Late st Contact Info) Description 06/20/2024 3:00 PM CDT Clinical Communication Virtual Review in [place], [place] [address] [place] [address] 06/25/2024 1:15 PM CDT Appointment Department of Radiology, [facility], in [address] [phone] Peace Key M.D. 06/25/2024 2:30 PM CDT Office Visit Department of Orthopedic Surgery in [address] [phone] Henry Rey P.A.-Polo., M.S. [address] [place] [phone] 08/20/2024 2:00 PM PEPPER PICKER Clinical Support Department of Sports Medicine in [address] [phone] Yan Stewart M.D. 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 No hardware failure. Scattered degenerative arthritis in the cervical facet joints. Multilevel cervical degenerative disc disease. Low-grade anterior subluxation C7 on T1. No instability on flexion and extension. Narrative 04/15/2024 11:32 AM CDT EXAM: ??DX CERVICAL SPINE 4-5 VIEWS Procedure Note Lina Strong M.D. - 04/15/2024 EXAM: DX CERVICAL SPINE 4-5 VIEWS IMPRESSION: C4-C7 ACDF with C5 corpectomy and bone graft. No hardware failure.Scattered degenerative arthritis in the cervical facet joints. Multilevelcervical degenerative disc disease. Low-grade anterior subluxation C7 onT1. No instability on flexion and extension. Buddy Holland M.D. 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
--- OUTSIDE RECORDS SUMMARY | 2024-06-07 15:15 | XMS_ITS | Encounter Summary ---
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 [address] [place] [phone] Social History Tobacco Use Types Packs/Day Years Used Date Smoking Tobacco: Never Smokeless Tobacco: Never Alcohol Use Standard Drinks/Week Comments Yes 3 (1 standard drink = 0.6 oz pur e alcohol) [facility] Utilities Answer Date Recorded In the past 12 months has [facility] [employer], gas, oil, or water [employer] threatened to shut off services in your [...] How often do you attend chur or temple services? More than 4 times per year 07/01/2022 Do you belong to any clubs o r organizations such as [employer]aritan groups, unions, fraternal or athletic groups, or [...] care, and heating? Not very hard 08/02/2023 [facility] - Occupational Stress [...] living situation today? I have a [facility] place to live 03/14/2024 Education Answer Date Recorded What is the highest level of school you have completed or the highest degree you have received? 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 - 04/12/2024 9:54 AM CDT TELEPHONE CALL - service of Mitchell Zhang MD SUBJECTIVE Reason for telephone call: 3-4 week post op call after hip surgery Flaca Arroyo is a 68 y.o. female who underwent 03/14/2024 LEFT primary MATT. Pain: currently well-controlled. Sometimes feels like she has been kicked in the rear. Incision: without redness or drainage. Recovered from the Prineo rash reaction after initiating theprotocol. Gait: reportedly mobilizing well with a cane in the community. ASSESSMENT / PLAN Ms. Arroyo is status post 03/14/2024 LEFT primary MATT. Will continue to monitor gluteal soreness and if with time this improves. If not, we can send to PT for pain control modalities but for now she should just continue the post-op protocol exercises and walking. We will plan to see 3 months postop with updated hip x-rays. Ms. Arroyo will contact us sooner with any questions or changes. All questions answered. documented in this encounter Plan of Treatment Upcoming Encounters Date Type Department Care Team (Late st Contact Info) Description 06/20/2024 3:00 PM CDT Clinical Communication Virtual Review in [address] [phone] 06/25/2024 1:15 PM CDT Appointment Department of Radiology, [facility], in [address] [phone] Peace Key M.D. 06/25/2024 2:30 PM CDT Office Visit Department of Orthopedic Surgery in [address] [phone] Henry Rey P.A.-C., M.S. [address] [place] [phone] 08/20/2024 2:00 PM LABVIEW PROGRAMMER Clinical Support Department of Sports Medicine in [address] [phone] Yan Stewart M.D. [address] [place] [phone] Darius Thompson P.T., Bernarda.P.T., [facility] [address] [place] [phone] documented as of this encounter Visit Diagnoses Not on filedocumented in this encounter Care Teams Marine Cargo Specialist Relationship Specialty Start Date End Date Elsewhere, Pcp PCP - General Family Medicine 02/11/21 documented as of this encounter
--- OUTSIDE RECORDS SUMMARY | 2024-06-07 15:15 | XMS_ITS | Referral Summary ---
Author Organization [facility] Address [address] [place] [address] Care Team Providers Care Salesperson Florist Supplies Name Role Phone Elsewhere, Pcp Primary Care Provider Unavailabl e Source Comments Patient records contain information from all sites at [facility]. For routine questions regarding patient records, call [phone] during business hours, M-F 8:00 AM - 5:00 PM Central Time. Record requests for emergency care only can be directed to [phone] at any time.[facility] Encounters Date Type Department Care Team Description 05/29/2024 1:00 PM CDT Clinical Support Department of Sports Medicine in [place], [place] [address] [place] [address] Yan Stewart M.D. Lewis, Jessica L, P.T., D.P.T. Rotator Cuff Disorder Left (Primary Dx) 04/29/2024 Orders Only Department of Orthopedic Surgery in [place], [place] [address] [place] [phone] Mao Cohen PHiro. 04/19/2024 9:00 AM CDT Office Visit Department of Orthopedic Surgery in [place], [place] [address] [place] [phone] Buddy Holland M.D. Fusion Cervical Spine Status Post (Primary Dx) 04/18/2024 Orders Only Department of Orthopedic Surgery in [place], [place] [address] [place] [phone] Buddy Holland M.D. 04/15/2024 10:44 AM CDT - 04/15/2024 12:03 PM CDT Hospital Encounter [place] [address] [place] [phone] Buddy Holland M.D. Fusion Cervical Spine Status Post; Stenosis Spinal Cervical Discharge Disposition: Home or Self Care 04/15/2024 12:04 PM CDT - 04/15/2024 11:59 PM CDT Hospital En[place] [address] [place] [phone] Buddy Holland M.D. Fusion Cervical Spine Status Post; Stenosis Spinal Cervical Discharge Disposition: Home or Self Care 04/12/2024 Clinical Communication Department of Orthopedic Surgery in [place], [place] [address] [place] [phone] Laura Alarcon P.A.-C., M.S. 03/15/2024 Clinical Communication Department of Orthopedic Surgery in [place], [place] [address] [place] [phone] Chris Zhang M.D. Follow-up Orders 03/14/2024 5:35 AM CDT - 03/15/2024 3:07 PM CDT Hospital Encounter [facility], [facility], [facility], Eighth Floor [address] [place] [address] Chris Zhang M.D. Difficulty Walking Orthopedic Cause [R26.2] (Primary Dx); Primary Osteoarthritis Hip Left Discharge Disposition: Home or Self Care 03/14/2024 7:10 AM CDT Anesthesia Event [facility] [address] [place] [address] Tal Hayes M.D. 03/14/2024 6:55 AM CDT - 03/14/2024 9:31 AM CDT Surgery [facility] [address] [place] [address] Chris Zhang M.D. Left ARTHROPLASTY REPLACEMENT TOTAL HIP. 03/13/2024 8:15 AM CDT Ancillary Procedure Department of Orthopedic Surgery 03/13/2024 2:00 PM CDT Comprehensive Visit Department of Physical Medicine and Rehabilitation in [place], [place] [address] [place] [phone] Henry Rey P.A.-C., M.S. Charleen Paul, O.T., O.T.D. Primary Osteoarthritis Hip Left (Primary Dx); Preoperative Exam 03/13/2024 1:00 PM CDT Comprehensive Visit Department of Physical Medicine and Rehabilitation in [place], [place] [address] [place] [phone] Henry Rey P.A.-C., M.S. Arnaldo Khan, P.T., D.P.T., OCS Primary Osteoarthritis Hip Left; Preoperative Exam 03/13/2024 9:15 AM CDT Office Visit Department of Orthopedic Surgery in [place], [place] [address] [place] [phone] Chris Zhang M.D. Primary Osteoarthritis Hip Left (Primary Dx) 03/13/2024 10:30 AM CDT Comprehensive Visit Preoperative Evaluation Center in [place], [place] [address] [place] [phone] Henry Rey P.A.-C., M.S. Javier Wakefield APRN, C.N.P., M.S.N. Preanesthetic Medical Exam (Primary Dx); Primary Osteoarthritis Hip Left; Arthritis Spine (HCC); Fusion Cervical Spine Status Post; Procedure And Treatment Not Carried Out Due To Patient Leaving Prior To Being Seen By Health Care Provider 03/13/2024 7:13 AM CDT - 03/13/2024 7:52 AM CDT Hospital Encounter Department of Laboratory Medicine and Pathology, [place], in [place], [place] [address] [place] [phone] Henry Rey P.A.-C., M.S. Primary Osteoarthritis Hip Left; Preoperative Exam Discharge Disposition: Home or Self Care 03/13/2024 7:53 AM CDT - 03/13/2024 11:59 PM CDT Hospital Encounter Department of Radiology, [facility] in [place], [place] [address] [place] [phone] Henry Rey P.A.-C., M.S. Primary Osteoarthritis Hip Left; Preoperative Exam Discharge Disposition: Home or Self Care 03/12/2024 11:00 AM CDT Clinical Support Department of Sports Medicine in [address] [phone] Yan Stewart M.D. Yerhot, Paul W, P.T., D.P.T., [facility] Rotator Cuff Disorder Left 03/12/2024 1:56 PM CDT - 03/12/2024 11:59 PM CDT Hospital Encounter Department of Radiology, [facility] in [address] [phone] Henry Rey P.A.-C., M.S. Primary Osteoarthritis Hip Left; Preoperative Exam Discharge Disposition: Home or Self Care 03/07/2024 7:30 AM CDT Clinical Communication Virtual Review in [address] [phone] Pre-visit Intake from Last 3 Months Allergies Active Allergy Reactions Criticality Noted Date Comments Sulfa (Sulfonamide Antibiotics) Hives only, no other systemic symptoms High 03/03/2005 Medications Medication Sig Dispensed Refills Start Date End Date Status calcium carbonate-vitamin D3 1,250 mg (500 mg calcium)-5 mcg (200 Unit) per tablet Take 2 tablets by mouth daily with breakfast. Active cyanocobalamin (VITAMIN B12) 1,000 mcg tablet Take 1,000 mcg by mouth daily. Active DAILY MULTI-VITAMIN ORAL Take 1 tablet by mouth daily. 12/18/2023 Active acetaminophen (TylenoL) 500 mg tablet Take 2 tablets (1,000 mg total) by mouth every 6 (six) hours for 28 days. 224 tablet 03/14/2024 Active celecoxib (CeleBREX) 200 mg capsule Take 1 capsule (200 mg total) by mouth daily. 30 capsule 03/14/2024 Active aspirin 81 mg chewable tablet Chew 1 tablet (81 mg total) 2 (two) times a day with meals. Recommended to minimize risk of blood clot. Once completed, resume the usual dose of aspirin your primary provider may recommend. 84 tablet 03/14/2024 Active oxyCODONE (Roxicodone) 5 mg immediate release tabletIndications: Acute Pain Exception Take 1 tablet (5 mg total) by mouth every 4 (four) hours as needed for severe pain or score 7-10 of 10 Indication: Acute Pain Exception. 25 tablet 03/14/2024 Active traMADoL (Ultram) 50 mg tabletIndications: Acute Pain Exception Take 1-2 tablets (50-100 mg total) by mouth every 8 (eight) hours as needed for pain Indications: Acute Pain Exception. Take 50 mg for pain 3-4. Take 100 mg for pain 5-6 40 tablet 03/14/2024 Active clobetasoL (Temovate) 0.05 % cream Apply 1 Application topically 2 (two) times a day. Apply to area as instructed twice daily. 30 g 1 03/19/2024 Active LORazepam (Ativan) 1 mg tablet Take 1 tablet (1 mg total) by mouth once for 1 dose. Take one hour prior to MRI 1 tablet 04/04/2024 Active meloxicam (Mobic) 7.5 mg tablet Take 1 tablet (7.5 mg total) by mouth 2 (two) times a day for 14 days. Take 1 tablet 2 times a day for 2 weeks. 28 tablet 3 04/29/2024 Active Active Problems Problem Noted Date Diagnosed Date Primary Osteoarthritis Hip Left 11/20/2023 Pain Shoulder Left 09/25/2023 Dystrophic Toenail 11/04/2022 Onycholysis 11/04/2022 Callus [place] Foot 11/04/2022 Pain Foot Right 11/04/2022 Neuropathy Peripheral 11/04/2022 Pes Planus Right 11/04/2022 Hammer Toe Acquired Left 11/04/2022 Onychomycosis 11/04/2022 Pain Hip Right 03/24/2022 Arthritis Spine 03/14/2022 Primary Osteoarthritis Hip Right 10/06/2021 Overview (10/06/2021): Added automatically from request for surgery [id number] Fusion Cervical Spine Status Post 12/04/2020 Overview (12/04/2020): Added automatically from request for surgery [id number] Tendinitis Bicipital Right 03/11/2019 Sprain Subscapularis Muscle Initial Right 2018 Resolved Problems Problem Noted Date Diagnosed Date Resolved Date Fusion Cervical Spine Status Post 03/14/2022 03/14/2022 Radiculopathy Cervical 03/11/201903/14 Social History Tobacco Use Types Packs/Day Years Used Date Smoking Tobacco: Never Smokeless Tobacco: Never Tobacco Cessation:Counseling Given: Not Answered Alcohol Use Standard Drinks/Week Comments Yes 3 (1 standard drink = 0.6 oz pur e alcohol) [facility] [employer] Answer Date Recorded In the past 12 months has [employer], oil, or water [employer] threatened to shut off services in your [...] 07/01/2022 How often do you attend [facility] or mormonism services? More than 4 times per year 07/01/2022 Do you belong to any clubs o r organizations such as zoroastrianism groups, unions, fraternal or athletic groups, or [...] care, and heating? Not very hard 08/02/2023 [facility] - [...] your living situation today? I have a [employer] place to live 03/14/2024 Education Answer Date Recorded What is the highest level of school you have completed or the highest degree you have received? Bachelor's degree (e.g., BA, AB, BS) 03/08/2019 Sex and Gender Information Value Date Recorded Sex Assigned at Female 03/31/2018 3:46 PM CDT Gender Identity Female 03/31/2018 3:46 PM CDT Sexual Orientation Straight 11/09/2020 5: 08 PM ZONING ASSISTANT Last Filed Vital Signs Vital Sign Reading Time Taken Comments Blood Pressure 109/47 03/15/2024 2:35 PM CDT Pulse 64 03/15/2024 6:43 AM CDT Temperature 36.4 ??C (97.5 ??F) 03/15/2024 6:43 AM CD T Respiratory Rate 16 03/15/2024 6:43 AM CDT Oxygen Saturation 98% 03/15/2024 6:43 AM CDT Inhaled Oxygen Concentration - - Weight 53.4 kg (117 lb 11.6 oz) 03/14/2024 1:00 PM CDT Height 168 cm (5' 6.14) 03/14/2024 1:00 PM CDT Body Mass Index 18.92 03/14/2024 1:00 PM CDT Plan of Treatment Upcoming Encounters Date Type Department Care Team (Late st Contact Info) Description 06/20/2024 3:00 PM CDT Clinical Communication Virtual Review in [place], [place] [address] [place] [address] 06/25/2024 1:15 PM CDT Appointment Department of Radiology, [facility], in [place], [place] [address] [place] [address] Peace Key M.D. 06/25/2024 2:30 PM CDT Office Visit Department of Orthopedic Surgery in [place], [place] [address] [place] [phone] Henry Rey P.A.-C., M.S. [address] [place] [address] 08/20/2024 2:00 PM ZONING ASSISTANT Clinical Support Department of Sports Medicine in [place], [place] [address] [place] [address] Yan Stewart M.D. [address] [place] [phone] Darius Thompson P.T., D.P.T., [facility] [address] [place] [phone] Medical Devices Implanted Type Area Manager Statistical Programming Device Identifier Shelf Expiration Date Model / Serial / Lot Grft [facility] 5 - [id number] - [id number] Implanted:Qty : 1 on 02/16/2021 by Buddy Holland M.D. at [facility] Bone or Tissue Anterior: Spine Cervical Medtronic 12/31/2022 [id number] / [id number] / Hardware E.G. Pins/Screws/R ods Hardware e.g. pins/screws /rods N/A: Back Spn Cg Bng Cerv Reji 20 - [id number] Implanted:Qty : 1 on 02/16/2021 by Buddy Holland M.D. at [facility] Hardware e.g. pins/screws /rods Anterior: Spine Cervical Depuy Synthes [id number] / / Spn Plt Dudley L3 48 - [id number] Implanted:Qty : 1 on 02/16/2021 by Buddy Holland M.D. at [facility] Hardware e.g. pins/screws /rods Anterior: Spine Cervical Depuy Synthes [id number] / / Spn Scrw Dudley Sfdr Thrd 4x16 - [id number] Implanted:Qty : 6 on 02/16/2021 by Buddy Holland M.D. at [facility] Hardware e.g. pins/screws /rods Anterior: Spine Cervical Depuy Synthes [id number] / / Anch Sut Swv 4.75x19.1 - [id number] Implanted:Qty : 1 on 12/05/2023 by Yan Stewart M.D. at [facility] Hardware e.g. pins/screws /rods Left: Shoulder Arthrex [id number] 09/17/2027 AR-2324BCC / / [id number] Shll Acet Trd Ii Mhl 50d - [id number] Implanted:Qty : 1 on 03/24/2022 at [facility] Hip Implant Right: Hip Hutchinson 11/24/2026 709-04-50D / / [id number] Scrw Hex 6.5x20 - [id number] Implanted:Qty : 1 on 03/24/2022 at [facility] Hip Implant Right: Hip Hutchinson 02/09/2027 3569-0780 / / [id number] Scrw Hex 6.5x15 - [id number] Implanted:Qty : 1 on 03/24/2022 at [facility] Hip Implant Right: Hip Ruben [id number] 08/08/2024 2891-6661 / / [id number] Lnr X3 Szd 36 - [id number] Implanted:Qty : 1 on 03/24/2022 at [facility] Hip Implant Right: Hip Hutchinson 02/14/2027 723-00-36D / / [id number] Hip Stm Ins Ofst Sz4 32.5x103 - [id number] Implanted:Qty : 1 on 03/24/2022 at [facility] Hip Implant Right: Hip Ruben 10/06/2026 9840-9512 / / [id number] Fem Hd Blx +5x36 - [id number] Implanted:Qty : 1 on 03/24/2022 at [facility] Hip Implant Right: Hip Urben 12/06/2026 6570-0-236 / / [id number] Fem Hd Blx V40 +0x36 - [id number] Implanted:Qty : 1 on 03/14/2024 by Chris Zhang M.D. at [facility] Hip Implant Left: Hip Hutchinson 08/20/2028 6570-0-136 / / [id number] Shll Acet Trd Ii Mhl 50d - [id number] Implanted:Qty : 1 on 03/14/2024 by Chris Zhang M.D. at [facility] Hip Implant Left: Hip Ruben 10/10/2028 709-04-50D / / [id number] Hip Stm Ins Ofst Sz3 32.5x101 - [id number] Implanted:Qty : 1 on 03/14/2024 by Chris Zhang M.D. at [facility] Hip Implant Left: Hip Ruben 07/26/2028 7615-5590 / / [id number] Scrw Hex 6.5x15 - [id number] Implanted:Qty : 1 on 03/14/2024 by Chris Zhang M.D. at [facility] Hip Implant Left: Hip Ruben 11/08/2028 4534-7638 / / [id number] Scrw Hex 6.5x45 - [id number] Implanted:Qty : 1 on 03/14/2024 by Chris Zhang M.D. at [facility] Hip Implant Left: Hip Ruben 09/19/2028 1681-5035 / / [id number] Scrw Hex 6.5x20 - [id number] Implanted:Qty : 1 on 03/14/2024 by Chris Zhang M.D. at [facility] Hip Implant Left: Hip Ruben 10/30/2028 2702-9172 / / [id number] Lnr X3 Szd 36 - [id number] Implanted:Qty : 1 on 03/14/2024 by Chris Zhang M.D. at [facility] Hip Implant Left: Hip Hutchinson 12/12/2028 723-00-36D / / [id number] Scrw Hex 6.5x15 - [id number] Implanted:Qty : 1 on 03/14/2024 by Chris Zhang M.D. at [facility] Hip Implant Left: Hip Ruben 11/08/2028 1953-8910 / / [id number] Knee Sigma C S Non Porous Fem Rt Sz 3 - [id number] Implanted:Qty : 1 on 01/17/2006 Knee Implant Other/Legacy - See Implant Description Depuy Synthes Description:Device Manufactu rer - Depuy Inc.. Body Location - Other. Right. Device Status Text - KNEE IMP-82021. J J Sig Fem Stem 5 13 X 90 - [id number] Implanted:Qty : 1 on 01/17/2006 Knee Implant Other/Legacy - See Implant Description Ke [employer] Ke Services Inc Description:Device Manufactu rer - J [employer] J Ortho. Body Location - Other. Right. Device Status Text - KNEE IMP-610398. J J Stem Ext Tib #2 3 13x30 - [id number] Implanted:Qty : 1 on 01/17/2006 Knee Implant Other/Legacy - See Implant Description [employer] Description:Device Manufactu rer - J & J Ortho. Body Location - Other. Right. Device Status Text - KNEE IMP-991467. Depuy-Tib Tray Mod Cement Cocr Sz2 - Ramirez [id number] Implanted:Qty : 1 on 01/17/2006 Knee Implant Other/Legacy - See Implant Description [employer] Description:Device Manufactu rer - J & J Ortho. Body Location - Other. Right. Device Status Text - KNEE IMP-732525. J J Sig Fem Post Apr 21 Comb #3 8 - [id number] Implanted:Qty : 1 on 01/17/2006 Knee Implant Other/Legacy - See Implant Description [employer] Inc Description:Device Manufactu rer - J & J Ortho. Body Location - Other. Right. Device Status Text - KNEE IMP-324972. J J Sig Fem Post Apr 21 Comb #3 8 - Ramirez [id number] Implanted:Qty : 1 on 01/17/2006 Knee Implant Other/Legacy - See Implant Description [employer] Inc Description:Device Manufactu rer - J & J Ortho. Body Location - Other. Right. Device Status Text - KNEE IMP-584557. J J Sig Fem [place] - Ramirez [id number] Implanted:Qty : 1 on 01/17/2006 Knee Implant Other/Legacy - See Implant Description [employer] Description:Device Manufactu rer - J & J Ortho. Body Location - Other. Right. Device Status Text - KNEE IMP-098547. Knee Sigma Gvf Stab 2 12.5m Insert - [id number] Implanted:Qty : 1 on 01/17/2006 Knee Implant Other/Legacy - See Implant Description [employer] Inc Description:Device Manufactu rer - J & J Ortho. Body Location - Other. Right. Device Status Text - KNEE IMP-770221. Plug Bone [place] 30mm - Ramirez [id number] Implanted:Qty : 1 on 01/17/2006 Mesh or Patch Ruben Description:Device Manufactu rer - Ruben Loly.. Device Status Text - MESHPATCH-20718. Plug Bone [place] 24mm - Ramirez [id number] Implanted:Qty : 1 on 01/17/2006 Mesh or Patch Hutchinson Description:Device Manufactu rer - Hutchinson Loly.. Device Status Text - MESHPATCH-470. Cement Bone Large - Ramirez [id number] Implanted:Qty : 3 on 01/17/2006 [facility] Other Ruben Description:Device Manufactu rer - Hutchinson Loly.. Device Status Text - MISCOTHER-2840. Cement Bone Small - Ramirez [id number] Implanted:Qty : 1 on 01/17/2006 [facility] Other Hutchinson Description:Device Manufactu rer - Ruben Loly.. Device Status Text - MISCOTHER-2841. Fibertak Button Implant System Implanted:Qty : 1 on 12/05/2023 by Yan Stewart M.D. at [facility] Orthopedic Other Left: Shoulder Arthrex [id number] 09/17/2028 AR-3680 / / [id number] 2.6 Fibertak Rc Blue Implanted:Qty : 1 on 12/05/2023 by Yan Stewart M.D. at [facility] Orthopedic Other Left: Shoulder Arthrex [id number] 03/17/2028 SALMA-3652TSP / / [id number] Spn Cg Cndt Cif 7mm 8d S - [id number] Implanted:Qty : 1 on 02/16/2021 by Buddy Holland M.D. at [facility] Spine Implant Anterior: Spine Cervical Depuy Synthes 06/17/2025 [id number] / / [id number] Explanted Type Area Manager Statistical Programming Device Identifier Shelf Expiration Date Model / Serial / Lot Allogenic, Femoral Head - [id number] Explanted:Qty : 1 on 03/24/2022 at [facility] Bone or Tissue Right: Hip [facility] [id number] / / Allogenic, Femoral Head - [id number] Explanted:Qty : 1 on 03/14/2024 at [facility] Bone or Tissue Left: Hip [facility] 02 / / Procedures Procedure Name Priority Date/Time Associated Diagnosis Comments MR CERVICAL SPINE WITHOUT IV CONTRAST RAD - Routine (most inpatients and all outpatients) 04/15/2024 12:58 PM CDT Fusion Cervical Spine Status Post Stenosis Spinal Cervical DX CERVICAL SPINE 4-5 VIEWS RAD - Routine (most inpatients and all outpatients) 04/15/2024 11:05 AM CDT Fusion Cervical Spine Status Post Stenosis Spinal Cervical CBC WITHOUT DIFFERENTIAL, B Routine 03/15/2024 5:08 AM CDT BASIC METABOLIC PANEL, S/P Routine 03/15/2024 5:08 AM CDT [facility] TISSUE DONOR SCREEN TEST SET Routine 03/14/2024 1:29 PM CDT ADULT OXYGEN THERAPY Routine 03/14/2024 9:17 AM CDT DX HIP LEFT 2-3 VIEWS RAD - Routine (most inpatients and all outpatients) 03/14/2024 9:17 AM CDT DX PELVIS 1-2 VIEWS RAD - Routine (most inpatients and all outpatients) 03/14/2024 8:26 AM CDT BACTERIA CULTURE, DONOR Routine 03/14/2024 7:55 AM CDT Primary Osteoarthritis Hip Left LDA ANE ENDOTRACHEAL AIRWAY Routine 03/14/2024 7:24 AM CDT ARTHROPLASTY REPLACEMENT TOTAL HIP 03/14/2024 6:57 AM CDT Primary Osteoarthritis Hip Left DX HIP AND PELVIS LEFT 2-3 VIEWS RAD - Routine (most inpatients and all outpatients) 03/13/2024 8:16 AM CDT Primary Osteoarthritis Hip Left Preoperative Exam ORTHOPEDIC SURGERY IMAGE EXAM Routine 03/13/2024 8:15 AM CDT CBC WITHOUT DIFFERENTIAL, B Routine 03/13/2024 7:44 AM CDT Primary Osteoarthritis Hip Left Preoperative Exam BASIC METABOLIC PANEL, S/P Routine 03/13/2024 7:44 AM CDT Primary Osteoarthritis Hip Left Preoperative Exam CT HIP LEFT WITHOUT IV CONTRAST RAD - Routine (most inpatients and all outpatients) 03/12/2024 3:30 PM CDT Primary Osteoarthritis Hip Left Preoperative Exam from Last 3 Months Results * MR Cervical Spine without IV Contrast (04/15/2024 12:58 PM CDT) Anatomical Region Laterality Modality Spine, Cervical Spine, Neuro radiology [facility], Neuroradiology [facility], [facility] N/A Magneti c Resonance Impressions 04/15/2024 6:06 PM CDT Stable postsurgical changes from prior C5 corpectomy and C4-C7 anterior instrument fusion. No substantial progression of the adjacent segment spondylotic change. Narrative 04/15/2024 6:06 PM CDT EXAM: MR CERVICAL SPINE WITHOUT IV CONTRAST COMPARISON: MRI cervical spine 06/30/2013. CT cervical spine 06/30/2023. Cervical spine radiographs 04/15/2024. FINDINGS: Stable appearance of postsurgical changes from C5 corpectomy with anterior instrumented fusion C4-C7. No convincing evidence of vertebral marrow edema in the cervical spine. C2-C3: Mild anterolisthesis, as before. Slight disc bulge and mild facet arthropathy without substantial spinal canal or neural foraminal narrowing. C3-C4: Disc bulge, uncovertebral spurring, tiny central zone disc protrusion, and mild facet arthropathy with mild bilateral neural foraminal narrowing, similar to prior. C4-C5 through C6-C7: Predominantly decompressed spinal canal, as before, with stable residual mild spinal canal narrowing and mild to moderate multilevel neural foraminal narrowing due to endplate hypertrophic changes. C7-T1: Moderate facet arthropathy and mild anterolisthesis without substantial spinal canal or neural foraminal narrowing. No convincing cervical spinal cord signal abnormality or pathologic enhancement. Procedure Note Isai Childers M.D. - 04/15/2024 EXAM: MR CERVICAL SPINE WITHOUT IV CONTRAST COMPARISON: MRI cervical spine 06/30/2013. CT cervical spine 06/30/2023.Cervical spine radiographs 04/15/2024. FINDINGS: Stable appearance of postsurgical changes from C5 corpectomywith anterior instrumented fusion C4-C7. No convincing evidence ofvertebral marrow edema in the cervical spine. C2-C3: Mild anterolisthesis, as before. Slight disc bulge and mild facetarthropathy without substantial spinal canal or neural foraminalnarrowing. C3-C4: Disc bulge, uncovertebral spurring, tiny central zone discprotrusion, and mild facet arthropathy with mild bilateral neuralforaminal narrowing, similar to prior. C4-C5 through C6-C7: Predominantly decompressed spinal canal, as before,with stable residual mild spinal canal narrowing and mild to moderatemultilevel neural foraminal narrowing due to endplate hypertrophicchanges. C7-T1: Moderate facet arthropathy and mild anterolisthesis withoutsubstantial spinal canal or neural foraminal narrowing. No convincing cervical spinal cord signal abnormality or pathologicenhancement. IMPRESSION: Stable postsurgical changes from prior C5 corpectomy and C4-C7 anteriorinstrument fusion. No substantial progression of the adjacent segmentspondylotic change. Buddy VELASQUEZ MRI PROCEDURE S * DX Cervical Spine 4-5 Views (04/15/2024 [...] Holland M.D. IMG DIAGNOSTIC IM AGING PROCEDURES * (ABNORMAL) CBC without Differential (03/15/2024 5:08 AM CDT) Only the most recent of2 resultswithin the time period is included. Hemoglobin 10.5(L) 11.6 - 15.0 g/dL 03/15/2024 5:26 AM CDT DTL Hematocrit 31.9(L) 35.5 - 44.9 % 03/15/2024 5:26 AM CDT DTL Erythrocytes 3.32(L) 3.92 - 5.13 x10(12)/L 03/15/2024 5:26 AM CDT DTL MCV 96.1 78.2 - 97.9 fL 03/15/2024 5:26 AM CDT DTL RBC Distrib Width 12.5 12.2 - 16.1 % 03/15/2024 5:26 AM CDT DTL Platelet Count 197 157 - 371 x10(9)/L 03/15/2024 5:26 AM CDT DTL Leukocytes 15.1(H) 3.4 - 9.6 x10(9)/L 03/15/2024 5:26 AM CDT DTL Blood (Blood, Venous) 03/15/2024 5:08 AM CDT 03/15/2024 5:20 AM CDT Peace Key M.D. LAB BLOOD ADD-ON [facility] [address] [place] [address], [facility] DTL [facility] [address] [place] [address] * (ABNORMAL) Basic Metabolic Panel (03/15/2024 5:08 AM CDT) Only the most recent of2 resultswithin the time period is included. Potassium, S 4.5 3.6 - 5.2 mmol/L 03/15/2024 5:50 AM CDT DTL Sodium, S 141 135 - 145 mmol/L 03/15/2024 5:50 AM CDT DTL Chloride, S 107 98 - 107 mmol/L 03/15/2024 5:50 AM CDT DTL Bicarbonate, S 26 22 - 29 mmol/L 03/15/2024 5:50 AM CDT DTL Anion Gap 8 7 - 15 03/15/2024 5:50 AM CDT DTL BUN (Blood Urea Nitrogen), S 16 6 - 21 mg/dL 03/15/2024 5:50 AM CDT DTL Creatinine 0.75 0.59 - 1.04 mg/dL 03/15/2024 5:50 AM CDT DTL Estimated GFR (eGFR) 88 >=60 mL/min/BSA 03/15/2024 5:50 AM CDT DTL Comment: Estimated GFR calculated using the 2020 CKD_EPI creatinine equation. Calcium, Total, S 8.6(L) 8.8 - 10.2 mg/dL 03/15/2024 5:50 AM CDT DTL Glucose, S 120 70 - 140 mg/dL 03/15/2024 5:50 AM CDT DTL Blood (Blood, Venous) 03/15/2024 5:08 AM CDT 03/15/2024 5:35 AM CDT Peace Key M.D. LAB BLOOD ADD-ON [facility] [address] [place] [address], [place] DTL [facility] [address] [place] [address] * MBC Tissue Donor Screen Test (03/14/2024 1:29 PM CDT) Pathologist [facility] HBsAg Screen Donor Non-reactiv e 03/18/2024 2:49 PM CDT MBC HBc Total Ab Donor Non-reactiv e 03/18/2024 2:49 PM CDT MBC HBV [facility] Individual Donor Non-reactiv e 03/18/2024 2:49 PM CDT MBC HCV [facility] Individual Donor Non-reactiv e 03/18/2024 2:49 PM CDT MBC HIV-1 [facility] Individual Donor Non-reactiv e 03/18/2024 2:49 PM CDT MBC HIV-1/-2 Plus O Ab Screen Donor Non-reactiv e 03/18/2024 2:49 PM CDT MBC HCV Ab Screen Donor Non-reactiv e 03/18/2024 2:49 PM CDT MBC HTLV-I/-II Ab Screen Donor Non-reactiv e 03/18/2024 2:49 PM CDT MBC T. cruzi Total Ab Donor Non-reactiv e 03/18/2024 2:49 PM CDT MBC Syphilis Ab Screen Donor Non-reactiv e 03/18/2024 2:49 PM CDT MBC Comment: This test is done by the Microhemagglutination assay- Treponema pallidum (MHA-TP) method. CMV Total Ab Donor Negative 2023 2:49 PM CDT MBC West Nile Virus [facility] Donor Non-reactiv e 03/18/2024 2:49 PM CDT MBC Comment: Failure to detect WNV RNA does not rule out the possibility of West Nile virus infection. This result should be evaluated in the context of the individual's risk factors and clinical findings. Blood (Blood, Venous) 03/14/2024 1:29 PM CDT 03/14/2024 1:39 PM CDT Narrative [facility] DONOR TESTING AND [facility] - 03/18/2024 2:49 PM CDT Specimen Information: Specimen ID: [id number] Specimen Type: Blood Specimen Collection Start Date: 03/14/2024 ??1:29 PM Specimen Received Date: 03/14/2024 ??1:39 PM Specimen ID: [id number] Specimen Type: Blood Specimen Collection Start Date: 03/14/2024 ??1:29 PM Specimen Received Date: 03/14/2024 ??1:39 PM Specimen ID: [id number] Specimen Type: Blood Specimen Collection Start Date: 03/14/2024 ??1:29 PM Specimen Received Date: 03/14/2024 ??1:39 PM Specimen ID: [id number] Specimen Type: Blood Specimen Collection Start Date: 03/14/2024 ??1:29 PM Specimen Received Date: 03/14/2024 ??1:39 PM Kvng Claudio M.D., Ph.D. LAB BLOOD NON ADD-ON [facility] DONOR TESTING AND [facility] [address] [facility]. [address], Donor Testing and [facility] [address] [facility] [place] [address] * DX Hip Left 2-3 Views (03/14/2024 9:17 AM CDT) Anatomical Region Laterality Modality Lower Extremity, Hip, Muscul oskeletal RST LOS, Musculoskeletal ARZ LOS, Muskuloskeletal FLA LOS Left Digit al Radiography Impressions 03/14/2024 11:32 AM CDT Uncemented left MATT. The prosthesis is well seated. Expected postoperative soft tissue emphysema. Negative for postoperative purposes. Partially visualized right MATT. Narrative 03/14/2024 11:32 AM CDT EXAM: ??DX HIP LEFT 2-3 VIEWS Procedure Note Melany Garrett M.D. - 03/14/2024 EXAM: DX HIP LEFT 2-3 VIEWS IMPRESSION: Uncemented left MATT. The prosthesis is well seated. Expected postoperativesoft tissue emphysema. Negative for postoperative purposes. Partially visualized right MATT. Henry Rey P.A.-C., M.S. [facility] DIAGNO STIC IMAGING PROCEDURES * DX Pelvis 1-2 Views (03/14/2024 8:26 AM CDT) Anatomical Region Laterality Modality Pelvis, Musculoskeletal RST LOS, Musculoskeletal ARZ LOS, Muskuloskeletal FLA LOS N/A Digital Radiography Impressions 03/14/2024 8:46 AM CDT Film taken during left MATT. Narrative 03/14/2024 8:46 AM CDT EXAM: ??DX PELVIS 1-2 VIEWS Procedure Note Chris Honeycutt M.D. - 03/14/2024 EXAM: DX PELVIS 1-2 VIEWS IMPRESSION: Film taken during left MATT. Henry Rey P.A.-C., M.S. [facility] DIAGNO STIC IMAGING PROCEDURES * Bacteria Culture, Donor (03/14/2024 7:55 AM CDT) Bacteria Culture, Donor No aerobic or anaerobic growth after 14 days of incubation. 03/28/2024 8:04 AM CDT DTL Bone (Bone Bank Bone) 03/14/2024 7:55 AM CDT Chris Zhang M.D. LAB MICROBIOLOGY - GENERAL ORDERABLES [facility] [address] [place] [address], [facility] DTL [facility] [address] [place] [address] * LDA ANE ENDOTRACHEAL AIRWAY (03/14/2024 7:24 AM CDT) Narrative Nathalie Romano R.N. - 03/14/2024 7:24 AM CDT Nathalie Romano R.N. ? 03/14/2024 ??7:46 AM Airway Date/Time: 03/14/2024 7:24 AM Performed by: Nathalie Romano R.N. Authorized by: Tal Hayes M.D. ?? Patient location during procedure: OR / Procedure Area PROCEDURE DETAILS: Mask difficulty assessment: easy mask Final airway type: video laryngoscope Laryngeal Manipulation: no ?? Final best view of glottic structures - Cormack/Lehane Score: grade 1 ETT location: oral VL device: glide scope [place] scope blade size: 3 Tube size: 7 ETT distance at teeth/gum: 20 Oral tube type: standard ETT Cuffed: yes Number of attempt to successful placement: 1 Airway confirmation: bilateral breath sounds, positive ETCO2 and bilateral chest rise Other previous techniques attempted: none PRE PROCEDURE DETAILS: Pre evaluation for airway management: procedure Urgency: elective Preoxygenation: bag valve mask SEDATION / ANESTHESIA Anesthesia method: anesthesia POST PROCEDURE DETAILS: ? Procedure outcome: successful ?? Notable Events: no complications Tal Hayes M.D. ANESTHESIA ORDERABLE S * DX Hip And Pelvis Left 2-3 Views (03/13/2024 8:16 AM CDT) Anatomical Region Laterality Modality Lower Extremity, Pelvis, Hip , Musculoskeletal RST LOS, Musculoskeletal ARZ LOS, Muskuloskeletal FLA LOS Left Digit al Radiography Impressions 03/13/2024 8:31 AM CDT Osteopenia. Advanced degenerative arthritis left hip with concentric joint space narrowing. Prominent osteophytes at the femoral head/neck junction. Uncemented right total hip arthroplasty. Degenerative arthritis pubic symphysis, lower lumbar spine and both sacroiliac joints. Instrumented lumbar fusion. Narrative 03/13/2024 8:31 AM CDT EXAM: ??DX HIP AND PELVIS LEFT 2-3 VIEWS Procedure Note Senthil Dsouza M.D. - 03/13/2024 EXAM: DX HIP AND PELVIS LEFT 2-3 VIEWS IMPRESSION: Osteopenia. Advanced degenerative arthritis left hip with concentric jointspace narrowing. Prominent osteophytes at the femoral head/neck junction.Uncemented right total hip arthroplasty. Degenerative arthritis pubicsymphysis, lower lumbar spine and both sacroiliac joints. Instrumented lumbar fusion. Henry Rey P.A.-C. MDanayS. IMG DIAGNO STIC IMAGING PROCEDURES * DX HIP AND PELVIS LEFT 2-3 VIEWS-Orthopedic Surgery Image Exam (03/13/2024 8:15 AM CDT) 03/13/2024 8:13 AM CDT Narrative [facility] - 03/13/2024 9:46 AM CDT This order has been created and auto-finalized to support the import of images acquired without order. The clinical documentation to support these images can be found on the encounter that produced images. Provider Not In System IMG NON RAD IMAGI NG PROCEDURES [facility] NA * CT Hip Left without IV Contrast (03/12/2024 3:30 PM CDT) Anatomical Region Laterality Modality Lower Extremity, Hip, Muscul oskeletal RST LOS, Musculoskeletal ARZ LOS, Muskuloskeletal FLA LOS Left Computed Tomography, Compute d Tomography Impressions 03/12/2024 3:[address] done for presurgical planning purposes according to the [facility] hip protocol. Advanced hypertrophic left hip osteoarthritis with osteophytosis, hypertrophic spurs lateral acetabular rim and diffuse chondrocalcinosis OTHER: Degenerative and postoperative changes lower lumbar spine. PO defect right posterior medial ilium. 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 More than expected cortical irregularities at the sacroiliac joints is appreciated; however given patient's demographic, these are felt to be largely degenerative and less likely representing inflammatory erosions. No areas of sacroiliac fusion Right MATT without failure. Tendinopathy and dystrophic calcifications both hamstring origin complexes. Right TKA with patellar resurfacing. 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 Benign small subcentimeter sclerosis left sacrum (series 4 image 119). Narrative 03/12/2024 3:00 PM CDT EXAM: ??CT HIP LEFT WITHOUT IV CONTRAST No 3D post-processing performed. COMPARISON: ??Prior imaging most recently radiographs 05/29/2023 Procedure Note Fidel Chiu M.D. - 03/12/2024 EXAM: CT HIP LEFT WITHOUT IV CONTRAST No 3D post-processing performed. COMPARISON: Prior imaging most recently radiographs 05/29/2023 IMPRESSION: CT done for presurgical planning purposes according to the [facility] hipprotocol. Advanced hypertrophic left hip osteoarthritis with osteophytosis,hypertrophic spurs lateral acetabular rim and diffuse chondrocalcinosis OTHER: Degenerative and postoperative changes lower lumbar spine. POdefect right posterior medial ilium. 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 More than expected corticalirregularities at the sacroiliac joints is appreciated; however givenpatient's demographic, these are felt to be largely degenerative and lesslikely representing inflammatory erosions. No areas of sacroiliac fusion Right MATT without failure. Tendinopathy and dystrophic calcifications both hamstring origincomplexes. Right TKA with patellar resurfacing. Left knee and pubic symphysisosteoarthritis with chondrocalcinosis. Benign small subcentimetersclerosis left sacrum (series 4 image 119). Henry Rey P.A.-C., M.S. 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 See document viewer. 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
--- OUTSIDE RECORDS SUMMARY | 2024-06-07 15:15 | XMS_ITS | Encounter Summary ---
Author Organization [facility] Address [address] [place] [address] Care Team Providers Care Graphics Manager Name Role Phone Elsewhere, Pcp Primary Care Provider Unavailabl e Reason for Referral * Outpatient (Routine) - Authorized Specialty Diagnoses / Procedures Referred By Shruthi gracia Referred To Contact Diagnoses Arthroplasty Total Hip Replacement Status Post Left Procedures DX Hip And Pelvis Left 4+ Views Peace Key M.D. [facility] Referral ID Status Reason Start Date Expiration Date V isits Requested Visits Authorized [id number] Authorized 03/15/2024 03/15/2025 1 1 * Outpatient (Routine) - Authorized Specialty Diagnoses / Procedures Referred By Shruthi gracia Referred To Contact Orthopedic Surgery Diagnoses Arthroplasty Total Hip Replacement Status Post Left Peace Key M.D. [facility] Referral ID Status Reason Start Date Expiration Date V isits Requested Visits Authorized [id number] Authorized 03/15/2024 09/14/2025 1 1 Reason for Visit * Reason Onset Date Comments Follow-up Orders 03/15/2024 Encounter Details Date Type Department Care Team (Latest Contact Info) Description 03/15/2024 Clinical Communication Department of Orthopedic Surgery in [place], [place] [address] [place] [address] Chris Zhang M.D. [address] [place] [address] Follow-up Orders Social History Tobacco Use Types Packs/Day Years Used Date Smoking Tobacco: Never Smokeless Tobacco: Never Alcohol Use Standard Drinks/Week Comments Yes 3 (1 standard drink = 0.6 oz pur e alcohol) [facility] Utilities Answer Date Recorded In the past 12 months has e [facility], gas, oil, or water [employer] threatened to shut off services in your [...] 07/01/2022 How often do you attend chur ch or yazidism services? More than 4 times per year 07/01/2022 Do you belong to any clubs o r organizations such as yazidism groups, unions, fraternal or athletic groups, or [...] care, and heating? Not very hard 08/02/2023 [facility] - Occupational Stress [...] Answer Date Recorded Dental: Regular Dentist Yes 04/08/20 22 Employment Answer Date Recorded Employment status Employed and actively working without restrictions 08/02/2023 Housing Stability Answer Date Recorded What is your living situation today? I have a [facility] place to live 03/14/2024 Education Answer Date Recorded What is the highest level of school you have completed or the highest degree you have received? 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 06/25/2024 2:30 PM CDT Office Visit Department of Orthopedic Surgery in [address] [phone] Henry Rey, Jef-C., M.S. [address] [place] [phone] 08/20/2024 2:00 PM MANAGER SCIENTIFIC Clinical Support Department of Sports Medicine in [address] [phone] Yan Stewart M.D. [address] [place] [phone] Darius Thompson, P.T., D.P.T., [facility] [address] [place] [phone] Scheduled Orders Name Type Priority Associated Diagnoses Orde r Schedule DX Hip And Pelvis Left 4+ Views Imaging RAD - Routine (most inpatients and all outpatients) Arthroplasty Total Hip Replacement Status Post Left Expected: 06/14/2024, Expires: 06/15/2025 Scheduled Referrals Name Type Priority Associated Diagnoses Orde r Schedule Orthopedic Surgery Post Op (clinic) Outpatient Referral Routine Arthroplasty Total Hip Replacement Status Post Left Expected: 06/14/2024, Expires: 06/15/2025 documented as of this encounter Visit Diagnoses Diagnosis Arthroplasty Total Hip Replacement Status Post Left- Primary documented in this encounter Care Teams Graphics Manager Relationship Specialty Start Date End Date Elsewhere, Pcp PCP - General Family Medicine 02/11/21 documented as of this encounter
--- OUTSIDE RECORDS SUMMARY | 2024-06-07 15:15 | XMS_ITS | Clinical Summary ---
Author Organization [facility] Address [address] [place] [address] Care Team Providers Care Sawmill Tally Clerk Name Role Phone Elsewhere, Pcp Primary Care Provider Unavailabl e Source Comments Patient records contain information from all sites at [facility]. For routine questions regarding patient records, call [phone] during business hours, M-F 8:00 AM - 5:00 PM Central Time. Record requests for emergency care only can be directed to [phone] at any time.[facility] Allergies Active Allergy Reactions Criticality Noted Date [...] 09/25/2023 Dystrophic Toenail 11/04/2022 Onycholysis 11/04/2022 Callus Spencer Foot 11/04/2022 Pain Foot Right 11/04/2022 Neuropathy Peripheral 11/04/2022 Pes Planus Right 11/04/2022 Hammer Toe Acquired Left 11/04/2022 Onychomycosis 11/04/2022 Pain Hip Right 03/24/2022 Arthritis Spine 03/14/2022 Primary Osteoarthritis Hip Right 10/06/2021 Overview (10/06/2021): Added automatically from request for surgery [id number] Fusion Cervical Spine Status Post 12/04/2020 Overview (12/04/2020): Added automatically from request for surgery [id number] Tendinitis Bicipital Right 03/11/2019 Sprain Subscapularis Muscle Initial Right 2018 Resolved Problems Problem Noted Date Diagnosed Date Resolved Date Fusion Cervical Spine Status Post 03/14/2022 03/14/2022 Radiculopathy Cervical 03/11/201903/14 Encounters Date Type Department Care Team Description 05/29/2024 1:00 PM CDT Clinical Support Department of Sports Medicine in [address] [phone] Yan Stewart M.D. Lewis, Jessica L, P.T., D.P.T. Rotator Cuff Disorder Left (Primary Dx) 04/29/2024 Orders Only Department of Orthopedic Surgery in [address] [phone] Mao Cohen, PHermelindo 04/19/2024 9:00 AM CDT Office Visit Department of Orthopedic Surgery in [address] [phone] Buddy Holland M.D. Fusion Cervical Spine Status Post (Primary Dx) 04/18/2024 Orders Only Department of Orthopedic Surgery in [address] [phone] Buddy Holland M.D. 04/15/2024 12:04 PM CDT - 04/15/2024 11:59 PM CDT Hospital Encounter Department of Radiology[address] [phone] Buddy Holland M.D. Fusion Cervical Spine Status Post; Stenosis Spinal Cervical Discharge Disposition: Home or Self Care 04/15/2024 10:44 AM CDT - 04/15/2024 12:03 PM CDT Hospital Encounter [place] [address] [place] [phone] Buddy Holland M.D. Fusion Cervical Spine Status Post; Stenosis Spinal Cervical Discharge Disposition: Home or Self Care 04/12/2024 Clinical Communication Department of Orthopedic Surgery in [place], [place] [address] [place] [phone] Laura Alarcon P.A.-C., M.S. 03/15/2024 Clinical Communication Department of Orthopedic Surgery in [place], [place] [address] [place] [phone] Chris Zhang M.D. Follow-up Orders 03/14/2024 7:10 AM CDT Anesthesia Event T [facility] OR [address] [place] [phone] Tal Hayes M.D. 03/14/2024 6:55 AM CDT - 03/14/2024 9:31 AM CDT Surgery T [facility] OR [address] [place] [phone] Chris Zhang M.D. Left ARTHROPLASTY REPLACEMENT TOTAL HIP. 03/14/2024 5:35 AM CDT - 03/15/2024 3:07 PM CDT Hospital Encounter [facility], [facility], [facility], Eighth Floor [address] [place] [address] Chris Zhang M.D. Difficulty Walking Orthopedic Cause [R26.2] (Primary Dx); Primary Osteoarthritis Hip Left Discharge Disposition: Home or Self Care 03/13/2024 2:00 PM CDT Comprehensive Visit Department of Physical Medicine and Rehabilitation in [place], [place] [address] [place] [phone] Henry Rey P.A.-C., M.S. Charleen Paul, ODanayT., O.T.D. Primary Osteoarthritis Hip Left (Primary Dx); Preoperative Exam 03/13/2024 1:00 PM CDT Comprehensive Visit Department of Physical Medicine and Rehabilitation in [place], [place] [address] [place] [phone] Henry Rey P.A.-C., M.S. Arnaldo Khan, P.T., D.P.T., OCS Primary Osteoarthritis Hip Left; Preoperative Exam 03/13/2024 10:30 AM CDT Comprehensive Visit Preoperative Evaluation Center in [place], [place] [address] [place] [phone] Henry Rey P.A.-C., M.S. Javier Wakefield APRN, C.N.P., M.S.N. Preanesthetic Medical Exam (Primary Dx); Primary Osteoarthritis Hip Left; Arthritis Spine (HCC); Fusion Cervical Spine Status Post; Procedure And Treatment Not Carried Out Due To Patient Leaving Prior To Being Seen By Health Care Provider 03/13/2024 9:15 AM CDT Office Visit Department of Orthopedic Surgery in [address] [phone] Chris Zhang M.D. Primary Osteoarthritis Hip Left (Primary Dx) 03/13/2024 8:15 AM CDT Ancillary Procedure Department of Orthopedic Surgery 03/13/2024 7:53 AM CDT - 03/13/2024 11:59 PM CDT Hospital Encounter Department of Radiology, [place], [place] [address] [place] [phone] Henry Rey P.A.-C., M.S. Primary Osteoarthritis Hip Left; Preoperative Exam Discharge Disposition: Home or Self Care 03/13/2024 7:13 AM CDT - 03/13/2024 7:52 AM CDT Hospital Encounter Department of Laboratory Medicine and Pathology, [facility] in [place], [place] [address] [place] [phone] Henry Rey P.A.-C., M.S. Primary Osteoarthritis Hip Left; Preoperative Exam Discharge Disposition: Home or Self Care 03/12/2024 1:56 PM CDT - 03/12/2024 11:59 PM CDT Hospital Encounter Department of Radiology, [facility] in [place], [place] [address] [place] [phone] Henry Rey P.A.-C., M.S. Primary Osteoarthritis Hip Left; Preoperative Exam Discharge Disposition: Home or Self Care 03/12/2024 11:00 AM CDT Clinical Support Department of Sports Medicine in [place], [place] [address] [place] [address] Yan Stewart M.D. Yerhot, Paul W PDanayT., D.P.T., SCS-ABPTS Rotator Cuff Disorder Left 03/07/2024 7:30 AM CDT Clinical Communication Virtual Review in [place], [place] [address] [place] [phone] Pre-visit Intake from Last 3 Months Family History Medical History Relation Name Comments Colon polyps Brother Michael Caldwell Melanoma Brother Michael Caldwell Skin cancer Brother Michael Caldwell Basal cell Sleep apnea Brother Michael Caldwell Breast cancer Father's Sister Andrew Frankel Success virgil atments Melanoma Maternal Grandfather Mitchell Severeid Lung cancer Mother Charu Caldwell non-smoker dec eased Melanoma Mother's Sister Reny Durham successful removal Skin cancer Mother's Sister Reny Durham Melanoma Sister 1 Marily De Guzman Skin cancer Sister 2 Beth Bonilla Basal cell Relation Name Status Comments Brother Michael Caldwell Father Jason Caldwell Father's Sister Andrew Frankel Maternal Grandfather Mitchell Severeid Mother Charu Caldwell Mother's Sister Reny Durham Sister 1 Marliy De Guzman Sister 2 Beth Bonilla Social History Tobacco Use Types Packs/Day Years Used Date Smoking Tobacco: Never Smokeless Tobacco: Never Tobacco Cessation:Counseling Given: Not Answered Alcohol Use Standard Drinks/Week Comments Yes 3 (1 standard drink = 0.6 oz pur e alcohol) [facility] Utilities Answer Date Recorded In the past 12 months has [employer], gas, oil, or water [employer] threatened to shut off services in your [...] any clubs o r organizations such as orthodoxy groups, unions, fraternal or athletic groups, or [...] care, and heating? Not very hard 08/02/2023 [facility] [place] of Occupat ional Health - Occupational Stress [...] your living situation today? I have a [facility] place to live 03/14/2024 Education Answer Date Recorded What is the highest level of school you have completed or the highest degree you have received? Bachelor's degree (e.g., BA, AB, BS) 03/08/2019 Sex and Gender Information Value Date Recorded Sex Assigned at Female 03/31/2018 3:46 PM CDT Gender Identity Female 03/31/2018 3:46 PM CDT Sexual Orientation Straight 11/09/2020 5: 08 PM RECRUITMENT DIRECTOR Last Filed Vital Signs Vital Sign Reading [...] PM CDT Clinical Communication Virtual Review in [address] [phone] 06/25/2024 1:15 PM CDT Appointment Department of Radiology, [facility], in [address] [phone] Peace Key M.D. 06/25/2024 2:30 PM CDT Office Visit Department of Orthopedic Surgery in [address] [phone] Henry Rey P.A.-Polo., M.S. [address] [place] [phone] 08/20/2024 2:00 PM RECRUITMENT DIRECTOR Clinical Support Department of Sports Medicine in [address] [phone] Yan Stewart M.D. [address] [place] [phone] Darius Thompson, P.Melvin., D.P.T., [facility] [address] [place] [phone] Health Maintenance Due Date Last Done Comments CT Colonography 1957 Cologuard 1957 Colonoscopy 1957 Colorectal Cancer Screening 1957 FIT 1957 Mammogram 05/09/2023 05/09/2022, 04/19, 04/27/2021 Depression Screening (Annual PHQ-2) 09/18/2023 COVID-19 Vaccine (2023- 5 season) 2024 07/06/2023, 07/29/2022, 12/18/2021, Additional history exists Influenza Vaccine (#1) 2024 , 07/29/2022, 06/12/2021, Additional history exists Fasting Glucose for Diabetes Screening 03/15/2027 03/15/2024, 03/13/2024, 11/08/2022, Additional history exists DTaP,Tdap,and Td Vaccines (2 - Td or Tdap) 04/06/2027 04/06/2017, 05/05/2005 Zoster Vaccines Completed 09/16/2021, 07/07/2021 Pneumococcal vaccine (65+ years) Completed 05/16/20 23 Fall Risk Screen (Annual) Completed 03/14/2024 Hepatitis C Screening Completed 03/14/2024, 022 Medical Devices Implanted Type Area Drum Saw Operator Device Identifier Shelf Expiration Date Model / Serial / Lot Grft Dbm Grf Pst 5 - [id number] - [id number] Implanted:Qty : 1 on 02/16/2021 by Buddy Holland M.D. at [facility] Bone or Tissue Anterior: Spine Cervical Medtronic 12/31/2022 [id number] / [id number] / Hardware E.G. Pins/Screws/R ods Hardware e.g. pins/screws /rods N/A: Back Spn Cg Bng Cerv Shelter 20 - [id number] Implanted:Qty : 1 on 02/16/2021 by Buddy Holland M.D. at [facility] Hardware e.g. pins/screws /rods Anterior: Spine Cervical Depuy Synthes [id number] / / Spn Plt Dudley L3 48 - [id number] Implanted:Qty : 1 on 02/16/2021 by Buddy Holland M.D. at [facility] Hardware e.g. pins/screws /rods Anterior: Spine Cervical Depuy Synthes [id number] / / Spn Scrw Dudley Sfdr Thrd 4x16 - [id number] Implanted:Qty : 6 on 02/16/2021 by Buddy Holland M.D. at [facility] Hardware e.g. pins/screws /rods Anterior: Spine Cervical Depuy Synthes [id number] / / Anch Sut Swv 4.75x19.1 - [id number] Implanted:Qty : 1 on 12/05/2023 by [facility] Hard[facility] e.g. pins/screws /rods Left: Shoulder Arthrex [id number] 09/17/2027 AR-2324BCC / / [id number] Shll Acet Trd Ii Mhl 50d - [id number] Implanted:Qty : 1 on 03/24/2022 at [facility] Hip Implant Right: Hip Waterfall 11/24/2026 709-04-50D / / [id number] Scrw Hex 6.5x20 - [id number] Implanted:Qty : 1 on 03/24/2022 at [facility] Hip Implant Right: Hip Ruben 02/09/2027 1570-6939 / / [id number] Scrw Hex 6.5x15 - [id number] Implanted:Qty : 1 on 03/24/2022 at [facility] Hip Implant Right: Hip Ruben [id number] 08/08/2024 6379-8583 / / [id number] Lnr X3 Szd 36 - [id number] Implanted:Qty : 1 on 03/24/2022 at [facility] Hip Implant Right: Hip Waterfall 02/14/2027 723-00-36D / / [id number] Hip Stm Ins Ofst Sz4 32.5x103 - [id number] Implanted:Qty : 1 on 03/24/2022 at [facility] Hip Implant Right: Hip Waterfall 10/06/2026 4762-8444 / / [id number] Fem Hd Blx +5x36 - [id number] Implanted:Qty : 1 on 03/24/2022 at [facility] Hip Implant Right: Hip Waterfall 12/06/2026 6570-0-236 / / [id number] Fem Hd Blx V40 +0x36 - [id number] Implanted:Qty : 1 on 03/14/2024 by Chris Zhang M.D. at [facility] Hip Implant Left: Hip Ruben 08/20/2028 6570-0-136 / / [id number] Shll Acet Trd Ii Mhl 50d - [id number] Implanted:Qty : 1 on 03/14/2024 by Chris Zhang M.D. at [facility] Hip Implant Left: Hip Waterfall 10/10/2028 709-04-50D / / [id number] Hip Stm Ins Ofst Sz3 32.5x101 - [id number] Implanted:Qty : 1 on 03/14/2024 by Chris Zhang M.D. at [facility] Hip Implant Left: Hip Ruben 07/26/2028 5088-5844 / / [id number] Scrw Hex 6.5x15 - [id number] Implanted:Qty : 1 on 03/14/2024 by Chris Zhang M.D. at [facility] Hip Implant Left: Hip Ruben 11/08/2028 0820-9758 / / [id number] Scrw Hex 6.5x45 - [id number] Implanted:Qty : 1 on 03/14/2024 by Chris Zhang M.D. at [facility] Hip Implant Left: Hip Waterfall 09/19/2028 4788-3986 / / [id number] Scrw Hex 6.5x20 - [id number] Implanted:Qty : 1 on 03/14/2024 by Chris Zhang M.D. at [facility] Hip Implant Left: Hip Ruben 10/30/2028 8544-8658 / / [id number] Lnr X3 Szd 36 - [id number] Implanted:Qty : 1 on 03/14/2024 by Chris Zhang M.D. at [facility] Hip Implant Left: Hip Ruben 12/12/2028 723-00-36D / / [id number] Scrw Hex 6.5x15 - [id number] Implanted:Qty : 1 on 03/14/2024 by Chris Zhang M.D. at [facility] Hip Implant Left: Hip Ruben 11/08/2028 7342-2099 / / [id number] Knee Sigma C S Non Porous Fem Rt Sz 3 - [id number] Implanted:Qty : 1 on 01/17/2006 Knee Implant Other/Legacy - See Implant Description Depuy Synthes Description:Device Manufactu rer - Depuy Inc.. Body Location - Other. Right. Device Status Text - KNEE IMP-09786. J J Sig Fem Stem 5 13 X 90 - [id number] Implanted:Qty : 1 on 01/17/2006 Knee Implant Other/Legacy - See Implant Description Ke [employer] Ke Services Inc Description:Device Manufactu rer - J [employer] J Ortho. Body Location - Other. Right. Device Status Text - KNEE IMP-861165. J J Stem Ext Tib #2 3 13x30 - Ramirez [id number] Implanted:Qty : 1 on 01/17/2006 Knee Implant Other/Legacy - See Implant Description [employer] Description:Device Manufactu rer - J & J Ortho. Body Location - Other. Right. Device Status Text - KNEE IMP-816384. Depuy-Tib Tray Mod Cement Cocr Sz2 - Ramirez [id number] Implanted:Qty : 1 on 01/17/2006 Knee Implant Other/Legacy - See Implant Description [employer] Description:Device Manufactu rer - J & J Ortho. Body Location - Other. Right. Device Status Text - KNEE IMP-462469. J J Sig Fem Post Apr 21 Comb #3 8 - [id number] Implanted:Qty : 1 on 01/17/2006 Knee Implant Other/Legacy - See Implant Description [employer] Inc Description:Device Manufactu rer - J & J Ortho. Body Location - Other. Right. Device Status Text - KNEE IMP-615615. J J Sig Fem Post Apr 21 Comb #3 8 - [id number] Implanted:Qty : 1 on 01/17/2006 Knee Implant Other/Legacy - See Implant Description [employer] Description:Device Manufactu rer - J & J Ortho. Body Location - Other. Right. Device Status Text - KNEE IMP-747324. J J Sig Fem Freeman - Ramirez [id number] Implanted:Qty : 1 on 01/17/2006 Knee Implant Other/Legacy - See Implant Description [employer] Description:Device Manufactu rer - J & J Ortho. Body Location - Other. Right. Device Status Text - KNEE IMP-197766. Knee Sigma Gvf Stab 2 12.5m Insert - [id number] Implanted:Qty : 1 on 01/17/2006 Knee Implant Other/Legacy - See Implant Description [employer] Description:Device Manufactu rer - J & J Ortho. Body Location - Other. Right. Device Status Text - KNEE IMP-221918. Plug Bone [place] 30mm - Ramirez [id number] Implanted:Qty : 1 on 01/17/2006 Mesh or Patch Urben Description:Device Manufactu rer - Ruben Loly.. Device Status Text - MESHPATCH-67869. Plug Bone [place] 24mm - Ramirez [id number] Implanted:Qty : 1 on 01/17/2006 Mesh or Patch Ruben Description:Device Manufactu rer - Ruben Loly.. Device Status Text - MESHPATCH-470. Cement Bone Large - Ramirez [id number] Implanted:Qty : 3 on 01/17/2006 Mis Other Waterfall Description:Device Manufactu rer - Ruben Loly.. Device Status Text - MISCOTHER-2840. Cement Bone Small - Ramirez [id number] Implanted:Qty : 1 on 01/17/2006 [facility] Other Ruben Description:Device Manufactu rer - Waterfall Loly.. Device Status Text - MISCOTHER-2841. Fibertak Button Implant System Implanted:Qty : 1 on 12/05/2023 by Yan Stewart M.D. at [facility] Orthopedic Other Left: Shoulder Arthrex [id number] 09/17/2028 AR-3680 / / [id number] 2.6 Fibertak Rc Blue Implanted:Qty : 1 on 12/05/2023 by Yan Stewart M.D. at [facility] Orthopedic Other Left: Shoulder Arthrex [id number] 03/17/2028 AR-3652TSP / / [id number] Spn Cg Cndt Cif 7mm 8d S - [id number] Implanted:Qty : 1 on 02/16/2021 by Buddy Holland M.D. at [facility] Spine Implant Anterior: Spine Cervical Depuy Synthes 06/17/2025 [id number] / / [id number] Explanted Type Area Drum Saw Operator Device Identifier Shelf Expiration Date Model / Serial / Lot Allogenic, Femoral Head - [id number] Explanted:Qty : 1 on 03/24/2022 at [facility] Bone or Tissue Right: Hip [facility] [id number] / / Allogenic, Femoral Head - [id number] Explanted:Qty : 1 on 03/14/2024 at [facility] Bone or Tissue Left: Hip [facility] [place] 02 / / Procedures Procedure Name Priority [...] PANEL, S/P Routine 03/15/2024 5:08 AM CDT [facility] SCREEN TEST SET Routine 03/14/2024 [...] Modality Spine, Cervical Spine, Neuro radiology [facility], Neuroradiology [facility], Neuroradiology [facility] N/A Magneti c Resonance Impressions 04/15/2024 6:06 [...] CDT Peace Key M.D. LAB BLOOD ADD-ON [facility] [address] [place] [address], [place] DTL [facility] [address] [place] [address] * (ABNORMAL) Basic Metabolic Panel (03/15/2024 5:08 AM CDT) Only the most recent of2 resultswithin the time period is included. Pathologist [facility] Potassium, S 4.5 3.6 - 5.2 mmol/L [...] AM CDT 03/15/2024 5:35 AM CDT Peace Yesi M.D. LAB BLOOD ADD-ON [facility] [address] [place] [address], [place] DTL [facility] [address] [place] [address] * MBC Tissue Donor Screen Test (03/14/2024 1:29 PM CDT) HBsAg Screen Donor Non-reactiv e 03/18/2024 2:49 [...] 1:29 PM CDT 03/14/2024 1:39 PM CDT [facility] DONOR TESTING [facility] - 03/18/2024 2:49 PM CDT Specimen Information: Specimen ID: [id number] Specimen Type: Blood Specimen Collection Start Date: 03/14/2024 ??1:29 PM Specimen Received Date: 03/14/2024 ??1:39 PM Specimen ID: [id number] Specimen Type: Blood Specimen Collection Start Date: 03/14/2024 ??1:29 PM Specimen Received Date: 03/14/2024 ??1:39 PM Specimen ID: [id number] Specimen Type: Blood Specimen Collection Start Date: 03/14/2024 ??1:29 PM Specimen Received Date: 03/14/2024 ??1:39 PM Specimen ID: [id number] Specimen Type: Blood Specimen Collection Start Date: 03/14/2024 ??1:29 PM Specimen Received Date: 03/14/2024 ??1:39 PM Kvng Claudio M.D., Ph.D. LAB BLOOD NON ADD-ON Performing Organization Address City/State/[facility] Co de Phone Number [facility] [place] 2] [facility] [address], [facility] [address] [place] [address] * DX Hip Left 2-3 Views (03/14/2024 [...] for postoperative purposes. Partially visualized right MATT. Hnery Rey P.A.-C., M.S. IMG DIAGNO STIC IMAGING PROCEDURES * DX Pelvis [...] during left MATT. Henry Rey P.A.-C., M.S. IMG DIAGNO STIC IMAGING PROCEDURES * Bacteria Culture, Donor (03/14/2024 7:55 AM CDT) Bacteria Culture, Donor No aerobic or anaerobic growth after 14 days of incubation. 03/28/2024 8:04 AM CDT DTL Bone (Bone Bank Bone) 03/14/2024 7:55 AM CDT Chris Zhang M.D. LAB MICROBIOLOGY - GENERAL ORDERABLES [facility] [address] [place] [address], [facility] [address] [place] [address] * LDA ANE ENDOTRACHEAL AIRWAY (03/14/2024 7:24 [...] ETT location: oral VL device: glide scope Cecil scope blade size: 3 Tube size: 7 [...] sacroiliac joints. Instrumented lumbar fusion. Henry Rey P.A.-C., M.S. IMG DIAGNO STIC IMAGING PROCEDURES * DX [...] presurgical planning purposes according to the Derick hipprotocol. Advanced hypertrophic left hip osteoarthritis with [...] Advance Directives For more information, please contact: [phone] Documents on File Type Date Recorded Patient Stamping Operator Expl anation Advance Directives 01/16/2006 12:00 AM [...] Answer Comments Full Code: Discussed Care Teams Sawmill Tally Clerk Relationship Specialty Start Date End Date Elsewhere, Pcp PCP - General Family Medicine 02/11/21
--- OUTSIDE RECORDS SUMMARY | 2024-06-07 15:15 | XMS_ITS | Encounter Summary ---
Author Organization [facility] Address [address] [place] [address] Care Team Providers Care Publicity Consultant Name Role Phone Elsewhere, Pcp Primary Care Provider Unavailabl e Reason for Referral * MRI/CAT/PET Scan (Routine) - Closed Specialty Diagnoses / Procedures Referred By Shruthi gracia Referred To Contact Radiology Diagnoses Fusion Cervical Spine Status Post Stenosis Spinal Cervical Procedures MR Cervical Spine without IV Contrast Buddy Holland M.D. [address] [place] [address] [facility] Referral ID Status Reason Start Date Expiration Date Visits Re quested Visits Authorized [id number] Closed 02/21/2024 02/20/2025 1 1 Reason for Visit * MRI/CAT/PET Scan (Routine) - Closed Specialty Diagnoses / Procedures Referred By Shruthi gracia Referred To Contact Radiology Diagnoses Fusion Cervical Spine Status Post Stenosis Spinal Cervical Procedures MR Cervical Spine without IV Contrast Buddy Holland M.D. [address] [place] [address] [facility] Referral ID Status Reason Start Date Expiration Date Visits Re quested Visits Authorized [id number] Closed 02/21/2024 02/20/2025 1 1 Encounter Details Date Type Department Care Team (Latest Contact Info) Description 04/15/2024 12:04 PM CDT - 04/15/2024 11:59 PM CDT Hospital Encounter Department of Radiology, [facility] in [place], [place] [address] [place] [address] Buddy Holland M.D. [address] [place] [phone] Fusion Cervical Spine Status Post; Stenosis Spinal Cervical Discharge Disposition: Home or Self Care Social History Tobacco Use Types Packs/Day Years Used Date Smoking Tobacco: Never Smokeless Tobacco: Never Alcohol Use Standard Drinks/Week Comments Yes 3 (1 standard drink = 0.6 oz pur e alcohol) [facility] Utilities Answer Date Recorded In the past 12 months has [employer], gas, oil, or water [employer] threatened to shut off services in your [...] week 07/01/2022 How often do you attend [facility] or voodoo services? More than 4 times per year 07/01/2022 Do you belong to any clubs o r organizations such as yazidi groups, unions, fraternal or athletic groups, or [...] care, and heating? Not very hard 08/02/2023 [facility] - Occupational [...] your living situation today? I have a [facility] place to live 03/14/2024 Education Answer Date Recorded What is the highest level of school you have completed or the highest degree you have received? Bachelor's degree (e.g., BA, AB, BS) 03/08/2019 Sex and Gender Information Value Date Recorded Sex Assigned at Female 03/31/2018 3:46 PM CDT Gender Identity Female 03/31/2018 3:46 PM CDT Sexual Orientation Straight 11/09/2020 5: 08 PM LIFTER documented as of this encounter Medications at [...] PM CDT Clinical Communication Virtual Review in [place], [place] [address] [place] [address] 06/25/2024 1:15 PM CDT Appointment Department of Radiology, [facility], in [address] [phone] Peace Key M.D. 06/25/2024 2:30 PM CDT Office Visit Department of Orthopedic Surgery in [place] [phone] Henry Rey P.A.-Polo., M.S. [address] [place] [phone] 08/20/2024 2:00 PM LIFTER Clinical Support Department of Sports Medicine in [address] [phone] Yan Stewart M.D. [address] [place] [phone] Darius Thompson, P.T., D.P.T., [facility]-ABPTS [address] [place] [phone] documented as of this encounter Procedures Procedure Name Priority Date/Time Associated Diagnosis Comments MR CERVICAL SPINE WITHOUT IV CONTRAST RAD - Routine (most inpatients and all outpatients) 04/15/2024 12:58 PM CDT Fusion Cervical Spine Status Post Stenosis Spinal Cervical documented in this encounter Results * MR Cervical Spine without IV Contrast (04/15/2024 12:58 PM CDT) Anatomical Region Laterality Modality Spine, Cervical Spine, Neuro radiology RST LOS, Neuroradiology ARZ LOS, Neuroradiology FLA LOS N/A Magneti c Resonance Impressions 04/15/2024 6:06 [...] progression of the adjacent segmentspondylotic change. Buddy Holland M.D. IMArie MRI PROCEDURE S documented in this encounter Visit Diagnoses Diagnosis Fusion Cervical Spine Status Post Stenosis Spinal Cervical documented in this encounter Care Teams Publicity Consultant Relationship Specialty Start Date End Date Elsewhere, Pcp PCP - General Family Medicine 02/11/21 documented as of this encounter
--- OUTSIDE RECORDS SUMMARY | 2024-06-07 15:16 | XMS_ITS | Encounter Summary ---
Author Organization [facility] Address [address] [place] [address] Care Team Providers Care Welding Pantograph Machine Operator Name Role Phone Elsewhere, Pcp Primary Care Provider Unavailabl e Encounter Details Date Type Department Care Team (Late st Contact Info) Description 03/13/2024 8:15 AM CDT Ancillary Procedure Department of Orthopedic Surgery Social History Tobacco Use Types Packs/Day Years Used Date Smoking Tobacco: Never Smokeless Tobacco: Never Alcohol Use Standard Drinks/Week Comments Yes 3 (1 standard drink = 0.6 oz pur e alcohol) [facility] Utilities Answer Date Recorded In the past 12 months has [facility] [employer], gas, oil, or water [employer] threatened to shut off services in your [...] How often do you attend chur or restorationism services? More than 4 times per year 07/01/2022 Do you belong to any clubs o r organizations such as faith groups, unions, fraternal or athletic groups, or [...] care, and heating? Not very hard 08/02/2023 [facility]at ional [facility] - Occupational [...] living situation today? I have a [facility] place to live 03/14/2024 Education Answer Date Recorded What is the highest level of school you have completed or the highest degree you have received? Bachelor's degree (e.g., BA, AB, BS) 03/08/2019 Sex and Gender Information Value Date Recorded Sex Assigned at Female 03/31/2018 3:46 PM CDT Gender Identity Female 03/31/2018 3:46 PM CDT Sexual Orientation Straight 11/09/2020 5: 08 PM PHARMACIST CRITICAL CARE documented as of this encounter Plan of Treatment Upcoming Encounters Date Type Department Care Team (Late st Contact Info) Description 06/20/2024 3:00 PM CDT Clinical Communication Virtual Review in [place], [place] [address] [place] [address] 06/25/2024 1:15 PM CDT Appointment Department of Radiology, [facility], in [place], [place] [address] [place] [phone] Peace Key M.D. 06/25/2024 2:30 PM CDT Office Visit Department of Orthopedic Surgery in [place], [place] [address] [place] [phone] Henry Rey P.A.-C., M.S. [address] [place] [phone] 08/20/2024 2:00 PM PHARMACIST CRITICAL CARE Clinical Support Department of Sports Medicine in [place], [place] [address] [place] [phone] Yan Stewart M.D. [address] [place] [phone] Darius Thompson P.T., D.P.T., SCS-ABPTS [address] [place] [phone] documented as of this encounter Procedures Procedure Name Priority Date/Time Associated Diagnosis Comments ORTHOPEDIC SURGERY IMAGE EXAM Routine 03/13/2024 8:15 AM CDT documented in this encounter Results * DX HIP AND PELVIS LEFT 2-3 [...] NON RAD IMAGI NG PROCEDURES IIMS NA documented in this encounter Visit Diagnoses Not on filedocumented in this encounter Care Teams Welding Pantograph Machine Operator Relationship Specialty Start Date End Date Elsewhere, Pcp PCP - General Family Medicine 02/11/21 documented as of this encounter
--- OUTSIDE RECORDS SUMMARY | 2024-06-07 15:16 | XMS_ITS | Encounter Summary ---
Author Organization [facility] Address [address] [place] [address] Care Team Providers Care Hardwood Floor Finisher Name Role Phone Elsewhere, Pcp Primary Care Provider Unavailabl e Reason for Visit * Occupational Therapy (Routine) - Closed Specialty Diagnoses / Procedures Referred By Shruthi gracia Referred To Contact Diagnoses Primary Osteoarthritis Hip Left Preoperative Exam Procedures OT Evaluate and treat Henry Rey P.A.-C., M.S. [address] [place] [address] [facility] Referral ID Status Reason Start Date Expiration Date Visits Re quested Visits Authorized [id number] Closed 11/20/2023 11/19/2024 1 1 Encounter Details Date Type Department Care Team (Latest Contact Info) Description 03/13/2024 2:00 PM CDT Comprehensive Visit Department of Physical Medicine and Rehabilitation in [place], [place] [address] [place] [phone] Henry Rey P.A.-C., M.S. [address] [place] [phone] Charleen Paul O.T., O.T.D. [address] [place] [address] Primary Osteoarthritis Hip Left (Primary Dx); Preoperative Exam Social History Tobacco Use Types Packs/Day Years Used Date Smoking Tobacco: Never Smokeless Tobacco: Never Alcohol Use Standard Drinks/Week Comments Yes 3 (1 standard drink = 0.6 oz pur e alcohol) [facility] Utilities Answer Date Recorded In the past 12 months has e [employer], gas, oil, or water [employer] threatened to shut off services in your [...] How often do you attend chur or amish services? More than 4 times per year [...] care, and heating? Not very hard 08/02/2023 [facility] - Occupational [...] your living situation today? I have a [facility] place to live 03/14/2024 Education Answer Date Recorded What is the highest level of school you have completed or the highest degree you have received? Bachelor's degree (e.g., BA, AB, BS) 03/08/2019 Sex and Gender Information Value Date Recorded Sex Assigned at Female 03/31/2018 3:46 PM CDT Gender Identity Female 03/31/2018 3:46 PM CDT Sexual Orientation Straight 11/09/2020 5: 08 PM INFORMATION TECHNOLOGY PROFESSOR documented as of this encounter Consult Notes * Charleen Paul O.T., O.T.D. - 03/13/2024 2:00 PM CDT Occupational Therapy Outpatient Evaluation and Treatment SUBJECTIVE Patient's Name: Flaca Arroyo Referring Provider: Henry Rey P.A.-C., M.S. Medical Diagnosis: 1. Primary Osteoarthritis Hip Left 2. Preoperative Exam Reason for Referral: Occupational therapy evaluation and treatment: pre-op Payor: [employer] / Plan: [employer] [place] / Product Type: PPO / PERTINENT MEDICAL / SURGICAL HISTORY: Patient Active Problem List Diagnosis Tendinitis Bicipital Right Sprain Subscapularis Muscle Initial Right Fusion Cervical Spine Status Post Primary Osteoarthritis Hip Right Arthritis Spine (HCC) Pain Hip Right Dystrophic Toenail Onycholysis Callus Orting Foot Pain Foot Right Neuropathy Peripheral Pes Planus Right Hammer Toe Acquired Left Onychomycosis Pain Shoulder Left Primary Osteoarthritis Hip Left Past Surgical History: Procedure Laterality Date ARTHROPLASTY REPLACEMENT TOTAL HIP Right 03/24/2022 Procedure: Right ARTHROPLASTY REPLACEMENT TOTAL HIP.; Surgeon: Chris Zhang M.D.; Location: [facility] OR BACK SURGERY x 2 BUNIONECTOMY Bilateral FUSION SPINE ANTERIOR CERVICAL N/A 02/16/2021 Procedure: C5 corpectomy, C4-7 Fusion.; Surgeon: Buddy Holland M.D.; Location: [facility] OR JOINT REPLACEMENT Right 2021 TKA, revision 2005 OTHER CONVERTED SHX (SEE COMMENT) N/A 03/13/2006 >Manipulation under anesthesia. Knee OTHER SURGICAL HISTORY bunion both feet feet double bunio REPAIR ROTATOR CUFF SHOULDER Left 12/05/2023 Procedure: Left shoulder arthroscopic rotator cuff repair, biceps tenodesis, labral debridement, chondroplasty, acromioplasty, arthroscopic AC joint debridement.; Surgeon: Yan Stewart M.D.; Location: [place] [address] OR SPINE SURGERY 2016 and January 1997 TOTAL HYSTERECTOMY 1995 Flaca Arroyo is a 68 y.o. female who presents to occupational therapy for pre-operative assessment and instruction in the setting of left total hip arthroplasty. Of note, she had a left rotator cuff repair on 11/1923. She is still non-weightbearing on her LUE (according to standard RC repair protocol). 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 Patient denies concerns with driving performance. Functional Mobility: Independent Gait Aid Used: Owns a cane, and front wheeled walker - not currently using either Bed Mobility: Independent Sit to Stand Transfers: Independent Car Transfers: Independent Home Living: multiple level home with 1 stairs to enter without railings - Patient is able to live on the main level. Patient uses a walk in shower with shower chair and comfort height toilet. Home Adaptive Equipment: dragline operator Bathroom Equipment: shower chair OBJECTIVE Review of Systems: History obtained from chart review and the patient/caregiver. Pain: Did not interfere with session Hip PHYSICAL EXAM Strength: normal throughout upper and lower extremities Balance: Good (maintains balance without support) Sit to stand transition: is normal Treatment: Today's therapy session consisted of home management training for safety and independence with ADLsafter surgery. Educated patient on precautions after surgery including: - Weight bearing precautions - When bending forward, knees should be spread at least shoulderwidth apart. Movement based on pain/discomfort. Example: Keep your knees apart and reach between them to put on socks and shoes - No hip internal rotation or adduction motions/positions - Avoid extremes of motion in all planes. Example: hyperflexing and twisting of your torso Fall prevention: Recommended patient prevent falls after surgery by getting up slowly, using recommended gait aids and adaptive equipment, and make home safer by removing throw rugs/clutter and usingnight lights. Car Transfers: - Recommended patient turn back to the car seat, move backwards until back of legs touch the seat. Then, keep hand on gait aid, handy bar, or car to steady balance, then sit down. Showering/Bathing: - Walk in shower - Therapist demonstrated how to safely complete step into walk in shower. Patient verbalized ability to complete transfer without breaking hip precautions. - Use of long handled sponge Lower Extremity Dressing: Educated patient on keeping knees apart and reaching between knees to don socks and shoes. Demonstrated and patient return demonstrated use of adaptive equipment for lower extremity dressing after hip surgery, including: Newspaper Carriers Supervisor/dressing stick for donning/doffing pants The patient was provided with the following educational material to support our session today: Protecting Your Hip After Hip Replacement [id number] No education material was provided to supplement this session Assessment Clinical Impression: Patient presents with functional limitations with impending weight bearing restrictions following left MATT, scheduled for tomorrow. Patient was receptive to recommendations for adaptive equipment andtechniques provided today. Anticipate patient will not require OT following surgery given her good u nderstanding precautions, receptiveness to adaptive tools, and adequate family/caregiver support athome. Patient participated in therapy today and agreed to the plan of care. Patient denied additional questions. Comorbid Conditions: Other (Comment), Arthritis (See active problem list) Personal Factors: History of falls Functional Goals and Timeframes: Patient will demonstrate ability to use adaptive equipment and strategies to maintain activity restrictions after upcoming surgery in one session to allow for safe transition home. Plan Ms. Arroyo was educated regarding evaluative findings, diagnosis, prognosis, potential risks and benefits of rehabilitation interventions. A collaborative effort was used to establish goals and planof care. She was informed of her right to make decisions regarding her care, including refusal of examination or treatment or selection of therapy services from another provider if desired. The treatment plan may be progressed or modified based upon her response to treatment. Treatment Plan: Start of Plan of Care: 03/13/2024 Number of Visits: 1 OT Duration: one time visit Plan: Discontinue OT Treatment interventions may include: Treatment Interventions: Self-care/home management Occupational Therapy Attestation Statement: Patient agrees with the plan of care and goals. Time Spent with Patient Evaluations Eval - Low Complexity: 20 min Time Tracking Total Treatment Time (min): 20 min Charleen Paul O.T., O.T.Roseline documented in this encounter Plan of Treatment Upcoming Encounters Date Type Department Care Team (Late st Contact Info) Description 06/20/2024 3:00 PM CDT Clinical Communication Virtual Review in [place], [place] [address] [place] [phone] 06/25/2024 1:15 PM CDT Appointment Department of Radiology, [facility], in [place], [place] [address] [place] [phone] Peace Key M.D. 06/25/2024 2:30 PM CDT Office Visit Department of Orthopedic Surgery in [place], [place] [address] [place] [phone] Henry Rey P.A.-C., M.S. [address] [place] [phone] 08/20/2024 2:00 PM INFORMATION TECHNOLOGY PROFESSOR Clinical Support Department of Sports Medicine in [place], [place] [address] [place] [phone] Yan Stewart M.D. [address] [place] [phone] Darius Thompson P.T., D.P.T., [facility] [address] [place] [phone] documented as of this encounter Visit Diagnoses Diagnosis Primary Osteoarthritis Hip Left- Primary Preoperative Exam documented in this encounter Care Teams Hardwood Floor Finisher Relationship Specialty Start Date End Date Elsewhere, Pcp PCP - General Family Medicine 02/11/21 documented as of this encounter
--- OUTSIDE RECORDS SUMMARY | 2024-06-07 15:16 | XMS_ITS | Encounter Summary ---
Author Organization [facility] Address [address] [place] [address] Care Team Providers Care Uniform Designer Name Role Phone Elsewhere, Pcp Primary Care Provider Unavailabl e Reason for Visit * Auth/Cert (Routine) Specialty Diagnoses / Procedures Referred By Shruthi t Referred To Contact Diagnoses Primary Osteoarthritis Hip Left Primary Osteoarthritis Hip Left [M16.12] Procedures [place] ARTHRO ACETAB&FEM PROSTH (MATT) Left ARTHROPLASTY REPLACEMENT TOTAL HIP Chris Zhang M.D. [address] [place] [address] Referral ID Status Reason Start Date Expiration Date Visits Re quested Visits Authorized [id number] 1 1 Encounter Details Date Type Department Care Team (Late st Contact Info) Description 03/14/2024 7:10 AM CDT Anesthesia Event [facility] [address] [place] [address] Tal Hayes M.D. [address] [place] [address] Anesthesia Record Procedure Summary Procedure Name Responsible Anesthesiologist Anesthesia Start Time Anesthesia Stop Time Left ARTHROPLASTY REPLACEMENT TOTAL HIP. (Left: Hip) Tal Hayes M.D. 03/14/24 0710 03/14/24 0921 Events Date Time Event Comment 03/14/2024 0706 0710 An Start Machine/Equipme nt Checked Infection Precautions Followed Procedure/Site Verified NPO Status Verified Supine Standard ASA Monitors Applied 0724 An Induction 0724 An Intubation 0730 Turnover to Proceduralist 0748 Proc Start 0855 Proc Fin 0908 Turnover to ANE Staff 0908 Airway Removal Criteria Met 0908 Extubation/Airway Removed 0909 an stop data 0921 An End I completed my handoff to the receiving staff during which we 1. Identified the patient 2. Identified the responsible provider 3. Reviewed the pertinent medical history 4. Discussed the surgical course 5. Reviewed intra-op anesthesia management and issues during anesthesia 6. Set expectations for post-procedure period 7. Allowed opportunity for questions and acknowledgement of understanding. Meds Name Total midazolam 1 mg/mL injection 1 mg fentaNYL PF injection 50 mcg/mL 100 mcg propofol 10 mg/mL infusion 429.34 mg lidocaine 2% (mg) injection 100 mg succinylcholine 20 mg/mL injection 100 m g phenylephrine 100 mcg/mL injection 200 m cg ondansetron 4 mg/2 mL injection 4 mg propofol 10 mg/mL injection 150 mg ketamine 10 mg/mL injection 20 mg dexAMETHasone (DECADRON) injection 4 mg/ mL 8 mg ceFAZolin injection 2 g (Ancef) 2 g tranexamic acid in NaCl IVPB 1,000 mg (C yklokapron) 1 g tranexamic acid in NaCl IVPB 1,000 mg (C yklokapron) 1 g HYDROmorphone 1 mg/mL injection 0.5 mg dexmedeTOMIDine 80 mcg/20 mL (4 mcg/mL) in NaCl 0.9% vial 16 mcg Lactated Ringers Free Drip 1,200 mL * Agents No agents on file. * Blood No blood administrations on file. Lines, Drains, and Airways Type Details Placement Removal Wound 03/24/22; Hip; Right 03/24/22 00 00 by Brenda Haley, R.N. Wound 12/05/23; 0920; Inci omi; Shoulder; Anterior, Left; sling, xeroform, primapore, dermabond, ice 12/05/23 0920 by Rafi Piña, R.N. Wound 03/14/24; 0801; Hip; Anterior, Left; primapore 03/14/24 0801 by Mar Aaron R.N. Peripheral IV Placement Date: 02/17 04/10; Placement Time: 558; Catheter Size: 18 G; Orientation: Left, Lower, Posterior; Location: Arm; Site Prep: Chlorhexidine (Preferred); Technique: Anatomical landmarks; Inserted by: JOVANNY; Insertion Attempts: 1; Removal Date: 03/15/24; Removal Time: 144; Removal Reason: Patient discharged 03/14/24 0559 by Sebas Cole 03/15/24 1440 by Lou Dempsey R.N. ETT Placement Date: 02/17 04/10; Placement Time: 723 (created via procedure documentation); Mask Ventilation: Easy mask; Technique: Video laryngoscopy; Type: Standard ETT; Single Lumen Tube Size: 7 mm; Cuffed: Yes; Location: Oral; Grade View: Grade 1; Insertion Attempts: 1; Placement Verification: Bilateral breath sounds, Positive ETCO2, Symmetrical chest wall movement; Removal Date: 03/14/24; Removal Time: 0903/14/24 0724 by Nathalie Romano R.N. 03/14/24 09 by Nathalie Romano R.N. documented in this encounter Social History Tobacco Use Types Packs/Day Years Used Date Smoking Tobacco: Never Smokeless Tobacco: Never Alcohol Use Standard Drinks/Week Comments Yes 3 (1 standard drink = 0.6 oz pur e alcohol) [facility] Utilities Answer Date Recorded In the past 12 months has [facility] [employer], [employer], or water [employer] threatened to shut off services in your [...] How often do you attend chur or baptism services? More than 4 times per year 07/01/2022 Do you belong to any clubs o r organizations such as yazdanism groups, unions, fraternal or athletic groups, or [...] care, and heating? Not very hard 08/02/2023 [facility] - Occupational [...] money to buy more. Never true 03/14/20 Within the past 12 months, t he [...] your living situation today? I have a [facility] place to live 03/14/2024 Education Answer Date Recorded What is the highest level of school you have completed or the highest degree you have received? 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 - 03/14/2024 10:16 AM CDT Patient: Flaca Arroyo Procedure Summary Date: 03/14/24 Room / Location: [address] / [facility] in [place], [place] Anesthesia Start: 709 Anesthesia Stop: 920 Procedure: Left ARTHROPLASTY REPLACEMENT TOTAL HIP. (Left: Hip) Diagnosis: Primary Osteoarthritis Hip Left (Primary Osteoarthritis Hip Left [M16.12].) Providers: Chris Zhang M.D. Responsible Provider: Tal Hayes M.D. Anesthesia Type: general ASA Status: 2 Anesthesia Type: general Last vitals Vitals Value Taken Time BP 128/65 03/14/24 1015 Temp 36.4 ??C 03/14/24 0920 Pulse 67 03/14/24 1015 Resp 17 03/14/24 1015 SpO2 99 % 03/14/24 1015 Vitals shown include unfiled device data. Please reference Vitals flowsheet for most recent vital signs. Anesthesia Post Evaluation Patient Disposition: general care unit Cardiovascular status: hemodynamics (HR & BP) acceptable Respiratory status: patent airway with spontaneous effort Temperature: normothermic Oxygen requirements: room air Level of consciousness: awake Pain score: pain adequately controlled and/or at baseline Post Op nausea/vomiting: none Hydration status: euvolemic * Anesthesia Procedure Notes - Nathalie Romano R.N. - 03/14/2024 7:45 AM CDT Associated Order(s): Airway Airway Date/Time: 03/14/2024 7:24 AM Performed by: Nathalie Romano R.N. Authorized by: Tal Hayes M.D. Patient location during procedure: OR / Procedure Area PROCEDURE DETAILS: Mask difficulty assessment: easy mask Final airway type: video laryngoscope Laryngeal Manipulation: no Final best view of glottic structures - Cormack/Lehane Score: grade 1 ETT location: oral VL device: glide scope [place] scope blade size: 3 Tube size: 7 [...] ANESTHESIA Anesthesia method: anesthesia POST PROCEDURE DETAILS: Procedure outcome: successful Notable Events: no complications * Anesthesia Preprocedure Evaluation - Tal Hayes M.D. - 03/14/2024 7:06 AM CDT Preprocedure Anesthesia & H&P Assessment Procedure Summary Date/Time: 03/14/24 0655 Procedure: Left ARTHROPLASTY REPLACEMENT TOTAL HIP. (Left: Hip) Diagnosis: Primary Osteoarthritis Hip Left [M16.12] Pre-op diagnosis: Primary Osteoarthritis Hip Left [M16.12]. Location: [place] [address] / [facility] in [place], [place] Providers: Chris Zhang M.D. Pertinent components of the patient's history including current problem list, medical history, surgical history, family history, social history, medications and allergies were reviewed. Present illness and pre-op diagnosis were confirmed. The planned surgery / procedure was verified with the patient / legal guardian. The patient's general health condition remains unchanged RELEVANT COMORBID CONDITIONS No relevant active problems OBJECTIVE PHYSICAL EXAMINATION Airway (HEENT) Mallampati: II TM Distance: >3 FB Neck ROM: Full Mouth Opening: >3 cm Upper Lip Bite Test Class: I Cardiovascular Rhythm: Regular Rate: Normal Cardiovascular Assessment: cardiovascular normal Functional Capacity: >4 METS Pulmonary Pulmonary Assessment: Clear General / Constitutional Constitutional Assessment: Normal General State of Health:: healthy appearing and calm ASSESSMENT / PLAN ANESTHESIA PLAN ASA: 2 Anesthesia Plan: general Patient seen and allergies reviewed, anesthesia plan and risks discussed directly with patient /legal guardian or through an orthopaedic surgeon. Risks/Benefits/Alternatives of Blood transfusion discussed with patient / legal guardian, includingan opportunity to ask questions and/or decline some or all transfusion therapies. The patient / legal guardian consented to the use of all blood products, as deemed medically necessary Approval to Proceed: approved for anesthesia documented in this encounter Plan of Treatment Upcoming Encounters Date Type Department Care Team (Late st Contact Info) Description 06/20/2024 3:00 PM CDT Clinical Communication Virtual Review in [place], [place] [address] [place] [phone] 06/25/2024 1:15 PM CDT Appointment Department of Radiology, [facility], in [place], [place] [address] [place] [address] Peace Key M.D. 06/25/2024 2:30 PM CDT Office Visit Department of Orthopedic Surgery in [place], [place] [address] [place] [phone] Henry Rey P.A.-C., M.S. 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 [address] [place] [phone] Darius Thompson, P.T., D.P.T., [facility] [address] [place] [phone] documented as of this encounter Procedures Procedure Name Priority Date/Time Associated Diagnosis Comments LDA ANE ENDOTRACHEAL AIRWAY Routine 03/14/2024 7:24 AM CDT documented in this encounter Results * LDA ANE ENDOTRACHEAL AIRWAY (03/14/2024 7:24 [...] ETT location: oral VL device: glide scope [place] scope blade size: 3 Tube size: 7 [...] complications Tal Hayes M.D. ANESTHESIA ORDERABLE S documented in this encounter Visit Diagnoses Not on filedocumented in this encounter Administered Medications Inactive Administered Medications - up to 3 most recent administrations Medication Order MAR Action Action Date Dose Rate Site ceFAZolin injection 2 g (Ancef) 2 g, intravenous, Once, On Maira 03/14/24 at 0700, For 1 dose, Intra-Op, Preoperatively within 1 hour prior to surgical incision If needed, reconstitute vial per package insert instructions. See IVAG for administration guidelines., Drug Monitoring Program: Pharmacist to adjust medication dosing based on indication and drug clearance factors., Indications: Prophylaxis, surgical Given 03/14/2024 7:39 AM CDT 2 g dexAMETHasone injection (Decadron) intravenous, As needed, Starting on Maira 03/14/24 at 0739, Anesthesia Intra-op Given 03/14/2024 7:39 AM CDT 8 mg dexmedeTOMIDine 80 mcg/20 mL (4 mcg/mL) injection (Precedex) intravenous, As needed, Starting on Maira 03/14/24 at 0930, Anesthesia Intra-op Given 03/14/2024 9:30 AM CDT 16 mcg fentaNYL injection (Sublimaze) intravenous, As needed, Starting on Maira 03/14/24 at 0714, Anesthesia Intra-op Given 03/14/2024 8:00 AM CDT 50 mcg Given 03/14/2024 7:14 AM CDT 50 mcg HYDROmorphone injection (Dilaudid) intravenous, As needed, Starting on Maira 03/14/24 at 0746, Anesthesia Intra-op Given 03/14/2024 7:46 AM CDT 0.5 mg ketamine injection (Ketalar) intravenous, As needed, Starting on Maira 03/14/24 at 0739, Anesthesia Intra-op Given 03/14/2024 7:39 AM CDT 20 mg Lactated Ringer's intravenous, Continuous Infusion: Per Instructions PRN, Starting on Maira 03/14/24 at 0711, Anesthesia Intra-op New Bag 03/14/2024 8:24 AM CDT New Bag 03/14/2024 7:11 AM CDT lidocaine (PF) (cardiac) injection intravenous, As needed, Starting on Maira 03/14/24 at 0724, Anesthesia Intra-op Given 03/14/2024 7:24 AM CDT 100 mg midazolam (PF) injection (Versed) intravenous, As needed, Starting on Maira 03/14/24 at 0714, Anesthesia Intra-op Given 03/14/2024 7:14 AM CDT 1 mg ondansetron (PF) injection (Zofran) intravenous, As needed, Starting on Maira 03/14/24 at 0825, Anesthesia Intra-op Given 03/14/2024 8:25 AM CDT 4 mg phenylephrine injection intravenous, As needed, Starting on Maira 03/14/24 at 0828, Anesthesia Intra-op Given 03/14/2024 8:49 AM CDT 50 mcg Given 03/14/2024 8:39 AM CDT 50 mcg Given 03/14/2024 8:28 AM CDT 100 mcg propofol 10 mg/mL infusion (Diprivan) intravenous, Continuous Infusion: Per Instructions PRN, Starting on Maira 03/14/24 at 0725, Anesthesia Intra-op Rate/Dose Change 03/14/2024 8:39 AM CDT 50 mcg/kg/min 16.02 mL/hr Rate/Dose Change 03/14/2024 8:21 AM CDT 100 mcg/kg/min 32. 04 mL/hr Rate/Dose Change 03/14/2024 8:12 AM CDT 110 mcg/kg/min 35. 244 mL/hr propofoL injection (Diprivan) intravenous, As needed, Starting on Maira 03/14/24 at 0725, Anesthesia Intra-op Given 03/14/2024 7:22 AM CDT 150 mg succinylcholine (PF) injection (Anectine) intravenous, As needed, Starting on Maira 03/14/24 at 0724, Anesthesia Intra-op Given 03/14/2024 7:24 AM CDT 100 mg tranexamic acid in NaCl IVPB 1,000 mg (Cyklokapron) 1,000 mg (1 g), intravenous, at 300 mL/hr, Administer over 20 Minutes, Once, On Maira 03/14/24 at 0700, For 1 dose, Intra-Op, Administer in OR upon induction Given 03/14/2024 7:39 AM CDT 1 g tranexamic acid in NaCl IVPB 1,000 mg (Cyklokapron) 1,000 mg (1 g), intravenous, at 300 mL/hr, Administer over 20 Minutes, Once, On Maira 03/14/24 at 0700, For 1 dose, Intra-Op, Administer in OR just before dropping tourniquet Given 03/14/2024 8:38 AM CDT 1 g documented in this encounter Care Teams Uniform Designer Relationship Specialty Start Date End Date Elsewhere, Pcp PCP - General Family Medicine 02/11/21 documented as of this encounter
--- OUTSIDE RECORDS SUMMARY | 2024-06-07 15:16 | XMS_ITS | Encounter Summary ---
Author Organization [facility] Address [address] [place] [id number] Care Team Providers Care Cat And Dog Bather Name Role Phone Elsewhere, Pcp Primary Care Provider Unavailabl e Reason for Visit * Reason Onset Date Comments Left Without Being Seen 03/13/2024 * Outpatient (Routine) - Closed Specialty Diagnoses / Procedures Referred By Shruthi gracia Referred To Contact Anesthesiology Diagnoses Primary Osteoarthritis Hip Left Preoperative Exam Henry Rey P.A.-C., M.S. [address] [place] [address] [facility] Referral ID Status Reason Start Date Expiration Date Visits Re quested Visits Authorized [id number] Closed 11/20/2023 05/21/2025 1 1 Encounter Details Date Type Department Care Team (Latest Contact Info) Description 03/13/2024 10:30 AM CDT Comprehensive Visit Preoperative Evaluation Center in [place], [place] [address] [place] [phone] Henry Rey P.A.-C., M.S. [address] [place] [phone] Javier Wakefield APRN, C.N.P., M.S.N. [address] [place] [phone] Preanesthetic Medical Exam (Primary Dx); Primary Osteoarthritis Hip Left; Arthritis Spine (HCC); Fusion Cervical Spine Status Post; Procedure And Treatment Not Carried Out Due To Patient Leaving Prior To Being Seen By Health Care Provider Social History Tobacco Use Types Packs/Day Years Used Date Smoking Tobacco: Never Smokeless Tobacco: Never Alcohol Use Standard Drinks/Week Comments Yes 3 (1 standard drink = 0.6 oz pur e alcohol) [facility] Utilities Answer Date Recorded In the past 12 months has e [employer], gas, oil, or water [employer] threatened to shut off services in your [...] often do you attend chur ch or baptist services? More than 4 times per year 07/01/2022 Do you belong to any clubs o r organizations such as quaker groups, unions, fraternal or athletic groups, or [...] care, and heating? Not very hard 08/02/2023 [facility] - Occupational Stress Questionnaire Answer Date Recorded [...] your living situation today? [facility] 03/14/2024 Education Answer Date Recorded What is the highest level of school you have completed or the highest degree you have received? 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 - 03/13/2024 10:30 AM CDT Mrs. Flaca Arroyo was scheduled and checked in for an appointment but left before being seen by Javier Wakefield APRN, C.N.P., M.S.N.. Rooming staff completed some documentation within the encounter. This patient arrived for a ED appt. During chart review in preparation for seeing this patient if was discovered that this patient does not need a ED exam. A comprehensive review of [facility] EMR was performed. We reviewed Care Everywhere and Documents Viewer or primary care or speciality care notes, laboratory testing, cardiac testing with in the last 6 months and prior anesthesia encounters. Based on the EMR review, the patient is an acceptable candidate for the planned procedure and may proceed without additional preoperative evaluation or testing. The patient was not seen in ED. I offered to go over the checklist for surgical patients as well as the patient's medications, she stated she already reviewed this and knew her instructions, deferred additional education. documented in this encounter Plan of Treatment Upcoming Encounters Date Type Department Care Team (Late st Contact Info) Description 06/20/2024 3:00 PM CDT Clinical Communication Virtual Review in [address] [phone] 06/25/2024 1:15 PM CDT Appointment Department of Radiology, [facility], in [address] [phone] Peace Key M.D. 06/25/2024 2:30 PM CDT Office Visit Department of Orthopedic Surgery in [address] [phone] Henry Rey P.A.-C., M.S. [address] [place] [phone] 08/20/2024 2:00 PM SHORT ORDER FRY COOK Clinical Support Department of Sports Medicine in [address] [phone] Yan Stewart M.D. [address] [place] [phone] Darius Thompson P.T., D.P.T., [facility]PTS [address] [place] [phone] documented as of this encounter Visit Diagnoses Diagnosis Preanesthetic Medical Exam- Primary Primary Osteoarthritis Hip Left Arthritis Spine (HCC) Fusion Cervical Spine Status Post Procedure And Treatment Not Carried Out Due To Patient Leaving Prior To Being Seen By Health Care Provider documented in this encounter Care Teams Cat And Dog Bather Relationship Specialty Start Date End Date Elsewhere, Pcp PCP - General Family Medicine 02/11/21 documented as of this encounter
--- OUTSIDE RECORDS SUMMARY | 2024-06-07 15:16 | XMS_ITS | Encounter Summary ---
Author Organization [facility] Address [address] [place] [address] Care Team Providers Care House Mover Name Role Phone Elsewhere, Pcp Primary Care Provider Unavailabl e Reason for Referral * Outpatient (Routine) - Authorized Specialty Diagnoses / Procedures Referred By Shruthi gracia Referred To Contact Diagnoses Rotator Cuff Disorder Left Procedures Sports Medicine PT/AT - Ongoing Rst Spm Renetta [address] [place] [address] [facility] Referral ID Status Reason Start Date Expiration Date V isits Requested Visits Authorized [id number] Authorized 03/12/2024 03/12/2025 99 99 Reason for Visit * Outpatient (Routine) - Authorized Specialty Diagnoses / Procedures Referred By Shruthi gracia Referred To Contact Diagnoses Rotator Cuff Disorder Left Procedures Sports Medicine PT/AT - Ongoing Mao Cohen, Rosa. [address] [place] [address] [facility] Referral ID Status Reason Start Date Expiration Date V isits Requested Visits Authorized [id number] Authorized 12/18/2023 12/17/2024 99 99 Encounter Details Date Type Department Care Team (Late st Contact Info) Description 03/12/2024 11:00 AM CDT Clinical Support Department of Sports Medicine in [place], [place] [address] [place] [phone] Yan Stewart M.D. [address] [place] [phone] Darius Thompson P.T., D.P.T., SCS-ABPTS [address] [place] [phone] Rotator Cuff Disorder Left Social History Tobacco Use Types Packs/Day Years Used Date Smoking Tobacco: Never Smokeless Tobacco: Never Alcohol Use Standard Drinks/Week Comments Yes 3 (1 standard drink = 0.6 oz pur e alcohol) Humiliation, Afraid, Rape, and Kick questionnair e Answer Date Recorded Within the last year, have y ou been afraid of your partner or ex-partner? No 07/01/2022 Within the last year, have y ou been humiliated or emotionally abused in other ways by your partner or ex-partner? No Within the last year, have y ou been kicked, hit, slapped, or otherwise physically hurt by your partner or ex-partner? No 07/01/2022 Within the last year, have y ou been raped or forced to have any kind of sexual activity by your partner or ex-partner? No 07/01/2022 Social Connection and Isolat ion Panel [NHANES] Answer Date Recorded In a typical week, how many times do you talk on the phone with family, friends, or neighbors? Twice a week 07/01/2022 How often do you get togethe r with friends or relatives? Once a week 07/01/2022 How often do you attend chur or methodist services? More than 4 times per year 07/01/2022 Do you belong to any clubs o r organizations such as mandaen groups, unions, fraternal or athletic groups, or [...] care, and heating? Not very hard 08/02/2023 [facility] - Occupational Stress [...] the money to buy more. Never true 08/02/20 23 Within the past 12 months, t he food you bought just didn't last and you didn't have money to get more. Never true 08/02/2023 PRAPARE - Transportation Answer Date Re corded In the past 12 months, has l ack of transportation kept you from medical appointments or from getting medications? No 07/19 In the past 12 months, has l ack of transportation kept you from meetings, work, or from getting things needed for daily living? No 08/02/2023 Nutrition Answer Date Recorded On average, how [...] have a st [place] place to live 08/02/2023 Education Answer Date Recorded What is the highest level of school you have completed or the highest degree you have received? Bachelor's degree (e.g., BA, AB, BS) 03/08/2019 Sex and Gender Information Value Date Recorded Sex Assigned at Female 03/31/2018 3:46 PM CDT Gender Identity Female 03/31/2018 3:46 PM CDT Sexual Orientation Straight 11/09/2020 5: 08 PM HVAC LEAD documented as of this encounter Progress Notes * Yan Weller, SPT - 03/12/2024 11:00 AM CDT Sports Medicine Physical Therapy post-operative Evaluation and Treatment By co-signing this note, the provider certifies the therapy being provided to this patient is reasonable and necessary for the diagnosis or treatment of this patient. SUBJECTIVE Patient's Name: Flaca Arroyo Referring Provider: Mao Cohen P.A.-C. Visit Diagnosis: 1. Rotator Cuff Disorder Left Reason for Referral: PT eval and treat for left RTC repair with biceps tenodesis Onset Date: 12/05/23 Payor: [employer] / Plan: [facility] [place] / Product Type: PPO / PERTINENT MEDICAL / SURGICAL HISTORY: Patient Active Problem List Diagnosis Tendinitis Bicipital Right Sprain Subscapularis Muscle Initial Right Fusion Cervical Spine Status Post Primary Osteoarthritis Hip Right Arthritis Spine (HCC) Pain Hip Right Dystrophic Toenail Onycholysis Callus [place] Foot Pain Foot Right Neuropathy Peripheral Pes Planus Right Hammer Toe Acquired Left Onychomycosis Pain Shoulder Left Primary Osteoarthritis Hip Left Past Surgical History: Procedure Laterality Date ARTHROPLASTY REPLACEMENT TOTAL HIP Right 03/24/2022 Procedure: Right ARTHROPLASTY REPLACEMENT TOTAL HIP.; Surgeon: Chris Zhang M.D.; Location: [facility] OR BACK SURGERY x 2 BUNIONECTOMY Bilateral FUSION SPINE ANTERIOR CERVICAL N/A 02/16/2021 Procedure: C5 corpectomy, C4-7 Fusion.; Surgeon: Buddy Holland M.D.; Location: [facility] ROMB OR JOINT REPLACEMENT Right 1999 and 2005 TKA, revision 2005 OTHER CONVERTED SHX (SEE COMMENT) N/A 03/13/2006 >Manipulation under anesthesia. Knee OTHER SURGICAL HISTORY feet double bunio REPAIR ROTATOR CUFF SHOULDER Left 12/05/2023 Procedure: Left shoulder arthroscopic rotator cuff repair, biceps tenodesis, labral debridement, chondroplasty, acromioplasty, arthroscopic AC joint debridement.; Surgeon: Yan Stewart M.D.; Location: [facility] 15 OR SPINE SURGERY 2016 and January 1997 TOTAL HYSTERECTOMY 1995 Flaca Arroyo is a 68 y.o. female who presents to sports medicine physical therapy status post Left RTC repair, biceps tenodesis, SAD, labral debridement. She presents for evaluation and instruction in restrictions and exercise. Patient Comments: Overall, patient states her shoulder is doing well. She noted most of her pain being at night. She feels like she is 80% back to previous function. She will be having hip surgery 03/14/2024. 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 Diagnostic Tests: Imaging No results found. PHYSICAL EXAM Pain: 4-8/10 Observation: arm in sling with abd pillow Range of motion: flex 30, abd 25, ER -10 Strength: N/A today QuickDASH: 82 (80-99% impairment) TREATMENT AROM Flexion - 90% of uninvolved side Extension - 90% of uninvolved side External Rotation - 90% of uninvolved side Internal Rotation Right T10 Left L4 Abduction - 90% of uninvolved side Shoulder HHD IR - Left (9.2), Right (12.1) ER - Left (5.3), Right (9.7) Abduction - Left (12.6), Right (12.7) Flexion - Left (7.2), Right (10.7) Sgym with Dr. Stewart - Patient can expect to regress a little bit with shoulder rehab following her upcoming hip surgery, but will bounce back once able to resume shoulder rehab exercises. All questions answered and addressed Home Exercise Program/Education: Access Code: [email or web address] URL: [email or web address] Date: 12/18/2023 Prepared by: Eugenio Garcia Assessment Clinical Impression: Flaca is a 68 y.o. female who presents 2 weeks status post L RTC repair. She was able to demonstrateweight bearing restrictions and verbalize understanding of home exercise program and post-operativerestrictions. Flaca would benefit from skilled physical therapy to address impairments and limitations related to surgery. I anticipate she will be able to return to prior level of function with continued skilled physical therapy. Flaca tolerated today's session well. Update 03/12/2024: Flaca is making anticipated progress. Her internal rotation is the most limited for range of motion (L4 involved vs. T10 uninvolved). ER rotation strength is the most limited (55% ofinvolved strength) due to pain (7/10). She will be resuming physical therapy at home prior to hip surgery and will come back to meet with Dr. Stewart 6-8 months post op. Rehab Potential: Ms. Arroyo has Good good potential to achieve established physical therapy goals within the time frame outlined below, provided she actively participates in her physical therapy treatment plan and home program. Clinical Presentation: Stable Examination elements: 1-2 Clinical Decision Making: Low complexity clinical decision making Functional Goals and Timeframes: PT Outpatient Goals PT Goal #1: Verbalize understanding of post op protcol PT Goal #1 Date: 12/25/23 PT Goal #2: ROM 0-120 within 12 weeks PT Goal #2 Date: 03/18/24 PT Goal #3: Perform HEP as toelrated with assist PT Goal #3 Date: 01/01/24 Plan Ms. [...] Treatment Plan: Start of Plan of Care: 03/12/2024 Treatment interventions may include: Treatment/Interventions: Therapeutic exercise, Therapeutic functional activity, Neuromuscular re-education, Manual therapy, Therapeutic modalities as needed PT Visits Per Day: PT Frequency: PT Duration (in days): Expected Number of Visits: Plan Status: Plan of care initiated Plan Comments: Patient to attend PT services closer to home. Will follow up with surgical team and this PT per protocol. Patient agrees with the plan of care and goals. By co-signing this note, the provider certifies the therapy being provided to this patient is reasonable and necessary for the diagnosis or treatment of this patient. Time Spent with Patient Therapeutic Interventions Therapeutic Exercise (min): 15 min Time Tracking Total Timed Units (min): 15 min Total Treatment Time (min): 15 min Chris Weller, SPT Electronically signed by Darius Thompson P.T., Bernarda.P.TDanay, [facility] at 03/12/2024 12:52 PM CDT Associated attestation - Darius Thompson P.T., Bernarda.P.TDanay, [facility] - 03/12/2024 12:52 PM CDT This therapist has reviewed all documentation and supervised today's session. This therapist agreeswith the plan of care developed in collaboration with the patient. * Yan Stewart M.D. - 03/12/2024 11:00 AM CDT REASON FOR FOLLOW-UP Flaca Arroyo is a 68 y.o. female who presents for follow-up approximately 3 months after shoulder surgery. HISTORY OF PRESENT ILLNESS Overall, she feels things are going well and progressing appropriately. Pain has been well controlled. She has been following the post-operative rehabilitation regimen without difficultly. Currently,she is participating in physical therapy focusing on shoulder range of motion and strengthening. She is tolerating this well without any significant difficulties or other issues. PHYSICAL EXAM Surgical incisions are healed. She has full active and passive elbow, wrist, and hand range of motion. Active shoulder ROM: - Abduction: 140 - Forward elevation: 150 - ER: 45 She is firing all muscles around the shoulder; manual muscle testing revealed appropriate strength in all directions. Neurovascularly intact. IMPRESSION/REPORT/PLAN 1. Status post left shoulder arthroscopic rotator cuff repair of the supraspinatus, biceps tenodesis, AC joint debridement, acromioplasty, and chondroplasty on 12/05/23 She is doing well after surgery and making appropriate progress. We are following the [facility] STANDARD Rotator Cuff Repair Rehabilitation Protocol. At this point, we will allow her to continue towork on range of motion and strengthening. We discussed an appropriate progression for this and I anticipate that she we will continue to improve over the coming months. We will avoid any heavy lifting, prolonged overhead activity, and contact sports at this time. Once again, we reviewed the overall recovery process and the anticipated time line. We will plan to see her back around 6 months postoperative. If any issues, questions, or concerns arise, we have encouraged the patient contact our team. documented in this encounter Plan of Treatment Upcoming Encounters Date Type Department Care Team (Late st Contact Info) Description 06/20/2024 3:00 PM CDT Clinical Communication Virtual Review in [address] [phone] 06/25/2024 1:15 PM CDT Appointment Department of Radiology, [facility], in [address] [phone] Peace Key M.D. 06/25/2024 2:30 PM CDT Office Visit Department of Orthopedic Surgery in [address] [phone] Henry Rey P.A.-Polo., M.S. [address] [place] [phone] 08/20/2024 2:00 PM HVAC LEAD Clinical Support Department of Sports Medicine in [address] [phone] Yan Stewart M.D. [address] [place] [phone] Darius Thompson P.T., Bernarda.P.T., [facility] [address] [place] [address] Scheduled Orders Name Type Priority Associated Diagnoses Orde r Schedule Sports Medicine PT/AT - Ongoing Procedures Routine Rotator Cuff Disorder Left Expected: 07/12/2024, Expires: 09/11/2024 documented as of this encounter Visit Diagnoses Diagnosis Rotator Cuff Disorder Left documented in this encounter Care Teams House Mover Relationship Specialty Start Date End Date Elsewhere, Pcp PCP - General Family Medicine 02/11/21 documented as of this encounter
--- OUTSIDE RECORDS SUMMARY | 2024-06-07 15:16 | XMS_ITS | Encounter Summary ---
Author Organization [facility] Address [address] [place] [address] Care Team Providers Care Manufacturing Assistant Name Role Phone Elsewhere, Pcp Primary Care Provider Unavailabl e Reason for Visit * Physical Therapy (Routine) - Closed Specialty Diagnoses / Procedures Referred By Shruthi gracia Referred To Contact Diagnoses Primary Osteoarthritis Hip Left Preoperative Exam Procedures PT Evaluate and treat Henry Rey P.A.-C., M.S. [address] [place] [address] [facility] Referral ID Status Reason Start Date Expiration Date Visits Re quested Visits Authorized [id number] Closed 11/20/2023 11/19/2024 1 1 Encounter Details Date Type Department Care Team (Latest Contact Info) Description 03/13/2024 1:00 PM CDT Comprehensive Visit Department of Physical Medicine and Rehabilitation in [place], [place] [address] [place] [phone] Henry Rey P.A.-C., M.S. [address] [place] [phone] Arnaldo Khan P.T., Smita., OCS [address] [place] [address] Primary Osteoarthritis Hip Left; Preoperative Exam Social History Tobacco Use Types Packs/Day Years Used Date Smoking Tobacco: Never Smokeless Tobacco: Never Alcohol Use Standard Drinks/Week Comments Yes 3 (1 standard drink = 0.6 oz pur e alcohol) [facility] Utilities Answer Date Recorded In the past 12 months has e [employer], gas, oil, or water rankur threatened to shut off services in your [...] How often do you attend chur or restorationist services? More than 4 times per year 07/01/2022 Do you belong to any clubs o r organizations such as muslim groups, unions, fraternal or athletic groups, or [...] care, and heating? Not very hard 08/02/2023 [facility] Occupat ional [facility] - [...] your living situation today? [facility] 03/14/2024 Education Answer Date Recorded What is the highest level of school you have completed or the highest degree you have received? Bachelor's degree (e.g., BA, AB, BS) 03/08/2019 Sex and Gender Information Value Date Recorded Sex Assigned at Female 03/31/2018 3:46 PM CDT Gender Identity Female 03/31/2018 3:46 PM CDT Sexual Orientation Straight 11/09/2020 5: 08 PM PHOTO STYLIST documented as of this encounter Consult Notes * Arnaldo Khan P.T., D.P.T., OCS - 03/13/2024 1:00 PM CDT Physical Therapy Musculoskeletal Outpatient Evaluation and Treatment By co-signing this note, the provider certifies the therapy being provided to this patient is reasonable and necessary for the diagnosis or treatment of this patient. SUBJECTIVE Patient's Name: Flaca Arroyo Referring Provider: Henry Rey P.A.-C. M.SDanay Medical Diagnosis: 1. Primary Osteoarthritis Hip Left 2. Preoperative Exam Reason for Referral: PT Eval and Treat: Pre-Operative Assessment and Instruction Payor: [employer] / Plan: [facility] [place] / Product Type: PPO / PERTINENT MEDICAL / SURGICAL HISTORY: Patient Active Problem List Diagnosis Tendinitis Bicipital Right Sprain Subscapularis Muscle Initial Right Fusion Cervical Spine Status Post Primary Osteoarthritis Hip Right Arthritis Spine (HCC) Pain Hip Right Dystrophic Toenail Onycholysis Callus [place] Foot Pain Foot Right Neuropathy Peripheral Pes Planus Right Hammer Toe Acquired Left Onychomycosis Pain Shoulder Left Primary Osteoarthritis Hip Left Past Surgical History: Procedure Laterality Date ARTHROPLASTY REPLACEMENT TOTAL HIP Right 03/24/2022 Procedure: Right ARTHROPLASTY REPLACEMENT TOTAL HIP.; Surgeon: Chris Zhang M.D.; Location: [facility] OR BACK SURGERY x 2 BUNIONECTOMY Bilateral FUSION SPINE ANTERIOR CERVICAL N/A 02/16/2021 Procedure: C5 corpectomy, C4-7 Fusion.; Surgeon: Buddy Holland M.D.; Location: [facility] ROMB OR JOINT REPLACEMENT Right 2021 TKA, revision 2005 OTHER CONVERTED SHX (SEE COMMENT) N/A 03/13/2006 >Manipulation under anesthesia. Knee OTHER SURGICAL HISTORY bunion both feet feet double bunio REPAIR ROTATOR CUFF SHOULDER Left 12/05/2023 Procedure: Left shoulder arthroscopic rotator cuff repair, biceps tenodesis, labral debridement, chondroplasty, acromioplasty, arthroscopic AC joint debridement.; Surgeon: Yan Stewart M.D.; Location: [place] [address] OR SPINE SURGERY 2016 and January 1997 TOTAL HYSTERECTOMY 1995 Flaca Arroyo is a 68 y.o. female who presents to outpatient physical therapy for lower extremitypre-operative gait aid assessment and instruction. She will undergo L MATT by Dr. Zhang via posterolateral approach on 03/14/24. Of note, she had a L rotator cuff repair on 12/05/23. She is still non-weight bearing on her LUE (according to standard RC repair protocol) . Patient weight bearing restrictions: Weight bearing as tolerated Current level of function: independent with ambulation and activities of daily living without use of gait aid but tolerance limited due to orthopedic condition. 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 I am only responding to those symptoms which are directly relevant to the specific indication for my consultation. Irecommend that the patient follow up with their primary or referring provider to pursue any other symptoms which may be of concern. Otherwise negative review of systems. Pt denies any symptoms of unexplained weight loss, numbness/tingling, shortness of breath, night sweats, progressive weakness, or recent change in bowel/bladder habits. PHYSICAL EXAM Strength: normal throughout upper and lower extremities Balance with weight bearing restrictions: Good (maintains balance without support) Sit to stand transition: is normal TREATMENT Gait/mobility instruction: Patient was instructed in use of appropriate assistive device with weight bearing restrictions. Patient demonstrated the ability to transfer, ambulate, and negotiate stairs with maintaining weight bearing restrictions safely. Gait devices used in session: 2-wheeled walker The following home instruction information provided: - Rehabilitation after Total Hip Replacement [id number] The following exercises were instructed to be performed after surgery: - ankle pumps and quadriceps sets - seated long arc quadriceps Stair training: Patient completed 6 steps with no railing. Gait device used: cane Assistance required supervision assistance for stairs. Sequence: because of R knee ROM limitations (unable to flex > 90deg), stair descent may be saferand better tolerated leading to RLE despite surgery being on L side Assessment Clinical Impression: Patient presents with impending functional limitations after joint replacement surgery. She is planning to have a one night post operative acute hospital stay. She has WB restrictions on her LUE and R knee ROM restrictions impacting her gait/stair negotiation. Patient does demonstrate ability to follow post- operative precautions and restrictions safely. Recommended gait aid: 2-wheeled walker Pt owns Anticipated post-operative destination: home with adequate family or caregiver support Clinical Presentation: Stable Examination elements: 3 Clinical Decision Making: Low complexity clinical decision making Clinical Decision Making Complexity: Low complexity clinical decision making Functional Goals and Timeframes: Patient will demonstrate ability to transfer, ambulate, and negotiate stairs with weight bearing restrictions using appropriate gait aid in one session to allow for safe transition to home. Plan Ms. Arroyo was educated regarding [...] modified based upon her response to treatment. Physical Therapy Attestation Statement: Patient agrees with the plan of care and goals. Treatment Plan: Plan: Plan of care initiated Start of Plan of Care: 03/13/2024 Number of Visits: up to 1 visits PT Duration: up to 1 days PT Frequency: One-time visit Time Spent with Patient Evaluations PT Eval - Low Complexity: 10 min Therapeutic Interventions Gait Training (min): 15 min Therapeutic Exercise (min): 10 min Time Tracking Total Timed Units (min): 25 min Total Treatment Time (min): 35 min Ankit Khan P.T., D.P.T., OCS documented in this encounter Plan of Treatment Upcoming Encounters Date Type Department Care Team (Late st Contact Info) Description 06/20/2024 3:00 PM CDT Clinical Communication Virtual Review in [place], [place] [address] [place] [address] 06/25/2024 1:15 PM CDT Appointment Department of Radiology, [facility], in [place], [place] [address] [place] [phone] Peace Key M.D. 06/25/2024 2:30 PM CDT Office Visit Department of Orthopedic Surgery in [place], [place] [address] [place] [phone] Henry Rey P.A.-C., M.S. [address] [place] [phone] 08/20/2024 2:00 PM PHOTO STYLIST Clinical Support Department of Sports Medicine in [place], [place] [address] [place] [phone] Yan Stewart M.D. [address] [place] [phone] Darius Thompson P.T., D.P.T., [facility] [address] [place] [phone] documented as of this encounter Visit Diagnoses Diagnosis Primary Osteoarthritis Hip Left Preoperative Exam documented in this encounter Care Teams Manufacturing Assistant Relationship Specialty Start Date End Date Elsewhere, Pcp PCP - General Family Medicine 02/11/21 documented as of this encounter
--- OUTSIDE RECORDS SUMMARY | 2024-06-07 15:16 | XMS_ITS | Encounter Summary ---
Author Organization [facility] Address [address] [place] [address] Care Team Providers Care Mirror Maker Name Role Phone Elsewhere, Pcp Primary Care Provider Unavailabl e Encounter Details Date Type Department Care Team (Latest Contact Info) Description 03/13/2024 7:13 AM CDT - 03/13/2024 7:52 AM CDT Hospital Encounter Department of Laboratory Medicine and Pathology, [facility], in [place], [place] [address] [place] [address] Henry Rey, Jef-C., M.S. [address] [place] [address] Primary Osteoarthritis Hip Left; Preoperative Exam Discharge Disposition: Home or Self Care Social History Tobacco Use Types Packs/Day Years Used Date Smoking Tobacco: Never Smokeless Tobacco: Never Alcohol Use Standard Drinks/Week Comments Yes 3 (1 standard drink = 0.6 oz pur e alcohol) [facility] Utilities Answer Date Recorded In the past 12 months has [employer] electric, gas, oil, or water company threatened [...] 07/01/2022 How often do you attend [facility] or zoroastrianism services? More than 4 times per year 07/01/2022 Do you belong to any clubs o r organizations such as judaism groups, unions, fraternal or athletic groups, or [...] care, and heating? Not very hard 08/02/2023 [facility] [place] [facility] - Occupational Stress [...] your living situation today? I have a [facility] place to live 03/14/2024 Education Answer Date Recorded What is the highest level of school you have completed or the highest degree you have received? 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 224 tablet 03/14/2024 aspirin 81 mg chewable tablet Chew 1 tablet (81 mg total) 2 (two) times a day with meals. Recommended to minimize risk of blood clot. Once completed, resume the usual dose of aspirin your primary provider may recommend. 84 tablet 03/14/2024 calcium carbonate-vitamin D3 1,250 mg (500 mg calcium)-5 mcg (200 Unit) per tablet Take 2 tablets by mouth daily with breakfast. celecoxib (CeleBREX) 200 mg capsule Take 1 capsule (200 mg total) by mouth daily. 30 capsule 03/14/2024 cyanocobalamin (VITAMIN B12) 1,000 mcg tablet Take [...] mg for pain 5-6 40 tablet 03/14/2024 ondansetron ODT (Zofran-ODT) 4 mg disintegrating tablet Dissolve 1 tablet (4 mg total) in the mouth every 8 (eight) hours as needed for nausea or vomiting. 12 tablet 03/14/2024 04/13/2024 pantoprazole (Protonix) 40 mg EC tablet Take 1 tablet (40 mg total) by mouth every morning before breakfast. 30 tablet 03/14/2024 04/14/2024 sennosides (Senokot) 8.6 mg tablet Take 1 tablet (8.6 mg total) by mouth 2 (two) times a day as needed for constipation for up to 14 days. Continue taking daily until no longer requiring prescription pain medications 20 tablet 03/14/2024 03/28/2024 acetaminophen (TYLENOL) 500 mg tablet Take 1 tablet (500 mg total) by mouth every 6 (six) hours as needed for mild pain or score 1-3 of 10. 100 tablet 12/05/2023 03/15/2024 documented as of this encounter Plan of Treatment Upcoming Encounters Date Type Department Care Team (Late st Contact Info) Description 06/20/2024 3:00 PM CDT Clinical Communication Virtual Review in [place], [place] [address] [place] [address] 06/25/2024 1:15 PM CDT Appointment Department of Radiology, [facility], in [address] [phone] Peace Key M.D. 06/25/2024 2:30 PM CDT Office Visit Department of Orthopedic Surgery in [address] [phone] Henry Rey P.A.-C., M.S. [address] [place] [phone] 08/20/2024 2:00 PM ATHLETIC TRAINER Clinical Support Department of Sports Medicine in [address] [phone] Yan Stewart M.D. [address] [place] [phone] Darius Thompson P.T., D.P.T., [facility] [address] [place] [phone] documented as of this encounter Procedures Procedure Name Priority Date/Time Associated Diagnosis Comments CBC WITHOUT DIFFERENTIAL, B Routine 03/13/2024 7:44 AM CDT Primary Osteoarthritis Hip Left Preoperative Exam BASIC METABOLIC PANEL, S/P Routine 03/13/2024 7:44 AM CDT Primary Osteoarthritis Hip Left Preoperative Exam documented in this encounter Results * CBC without Differential (03/13/2024 7:44 AM CDT) Hemoglobin 13.9 11.6 - 15.0 g/dL 03/13/2024 8:44 AM CDT DTL Hematocrit 42.2 35.5 - 44.9 % 03/13/2024 8:44 AM CDT DTL Erythrocytes 4.47 3.92 - 5.13 x10(12)/L 03/13/2024 8:44 AM CDT DTL MCV 94.4 78.2 - 97.9 fL 03/13/2024 8:44 AM CDT DTL RBC Distrib Width 12.5 12.2 - 16.1 % 03/13/2024 8:44 AM CDT DTL Platelet Count 247 157 - 371 x10(9)/L 03/13/2024 8:44 AM CDT DTL Leukocytes 5.7 3.4 - 9.6 x10(9)/L 03/13/2024 8:44 AM CDT DTL Blood (Blood, Venous) 03/13/2024 7:44 AM CDT 03/13/2024 8:09 AM CDT Henry Rey P.A.-C., M.S. LAB BLOOD ADD-ON [facility] [address] [place] [address], [facility] [address] [place] [address] * Basic Metabolic Panel (03/13/2024 7:44 AM CDT) Pathologist [facility] Potassium, S 4.3 3.6 - 5.2 mmol/L 03/13/2024 8:54 AM CDT DTL Sodium, S 140 135 - 145 mmol/L 03/13/2024 8:54 AM CDT DTL Chloride, S 104 98 - 107 mmol/L 03/13/2024 8:54 AM CDT DTL Bicarbonate, S 24 22 - 29 mmol/L 03/13/2024 8:54 AM CDT DTL Anion Gap 12 7 - 15 03/13/2024 8:54 AM CDT DTL BUN (Blood Urea Nitrogen), S 19 6 - 21 mg/dL 03/13/2024 8:54 AM CDT DTL Creatinine 0.70 0.59 - 1.04 mg/dL 03/13/2024 8:54 AM CDT DTL Estimated GFR (eGFR) >90 >=60 mL/min/BSA 03/13/2024 8:54 AM CDT DTL Comment: Estimated GFR calculated using the 2020 CKD_EPI creatinine equation. Calcium, Total, S 9.5 8.8 - 10.2 mg/dL 03/13/2024 8:54 AM CDT DTL Glucose, S 106 70 - 140 mg/dL 03/13/2024 8:54 AM CDT DTL Blood (Blood, Venous) 03/13/2024 7:44 AM CDT 03/13/2024 8:31 AM CDT Henry Rey P.A.-C., M.S. LAB BLOOD ADD-ON [facility] [address] [place] [address], [facility] [address] [place] [address] documented in this encounter Visit Diagnoses Diagnosis Primary Osteoarthritis Hip Left Preoperative Exam documented in this encounter Care Teams Mirror Maker Relationship Specialty Start Date End Date Elsewhere, Pcp PCP - General Family Medicine 02/11/21 documented as of this encounter
--- OUTSIDE RECORDS SUMMARY | 2024-06-07 15:16 | XMS_ITS | Encounter Summary ---
Author Organization [facility] Address [address] [place] [address] Care Team Providers Care Drafting Detailer Name Role Phone Elsewhere, Pcp Primary Care Provider Unavailabl e Reason for Visit * Auth/Cert (Routine) Specialty Diagnoses / Procedures Referred By Shruthi t Referred To Contact Diagnoses Primary Osteoarthritis Hip Left Primary Osteoarthritis Hip Left [M16.12] Procedures NE ARTHRO ACETAB&FEM PROSTH (MATT) Left ARTHROPLASTY REPLACEMENT TOTAL HIP Chris Zhang M.D. [address] [place] [address] Referral ID Status Reason Start Date Expiration Date Visits Re quested Visits Authorized [id number] 1 1 Encounter Details Date Type Department Care Team (Latest Contact Info) Description 03/14/2024 5:35 AM CDT - 03/15/2024 3:07 PM CDT Hospital Encounter [facility], [facility], Eighth Floor [address] [place] [id number] Chris Zhang M.D. [address] [place] [address] Difficulty Walking Orthopedic Cause [R26.2] (Primary Dx); Primary Osteoarthritis Hip Left Discharge Disposition: Home or Self Care Social History Tobacco Use Types Packs/Day Years Used Date Smoking Tobacco: Never Smokeless Tobacco: Never Alcohol Use Standard Drinks/Week Comments Yes 3 (1 standard drink = 0.6 oz pur e alcohol) [facility] Utilities Answer Date Recorded In the past [...] week 07/01/2022 How often do you attend [facility] or latter day services? More than 4 times per year 07/01/2022 Do you belong to any clubs o r organizations such as baptism groups, unions, fraternal or athletic groups, or [...] care, and heating? Not very hard 08/02/2023 [facility] - Occupational Stress Questionnaire Answer [...] Sexual Orientation Straight 11/09/2020 5: 08 PM [employer] documented as of this encounter Last Filed [...] Mass Index 18.92 03/14/2024 1:00 PM CDT documented in this encounter Discharge Summaries * Peace Key M.D. - 03/15/2024 7:36 AM CDT DISCHARGE SUMMARY BRIEF OVERVIEW Hospital: [facility] Discharge Provider: Chris Zhang M.D. Primary Team: [facility] Orthopedic Surgery - [facility] Primary Care Providers: Elsewhere, Pcp (General) No address on file Primary Care Provider Phone Number: None Primary Care Provider Fax Number: None Other Providers: None Admission Date: 03/14/2024 Discharge Date: 03/15/24 PRINCIPAL DIAGNOSIS Primary Osteoarthritis Hip Left SECONDARY DIAGNOSES Principal Problem: Primary Osteoarthritis Hip Left Resolved Problems: * No resolved hospital problems. * Surgery Information This Encounter Past Procedures (03/16/2023 to Today) Date Procedures Providers Loc / Dept 03/14/2024 Left ARTHROPLASTY REPLACEMENT TOTAL HIP. Chris Zhang M.D.Terhune, Elizabeth, M.D. T ROEI OR DISCHARGE DISPOSITION Home or Self Care [1] ACTIVE ISSUES REQUIRING FOLLOW UP OUTPATIENT FOLLOW UP Scheduled Appointments 04/15/2024 11:15 AM DX ROCH [address] Radiology 04/15/2024 12:45 PM MR JOSE A LO MR 28 1.5T Radiology For appointment details refer to your Patient Appointment Guide. TEST RESULTS PENDING AT DISCHARGE Pending Labs Order Current Status Bacteria Culture, Donor In process MBC Tissue Donor Screen Test In process DETAILS OF HOSPITAL STAY REASON FOR ADMISSION Primary Osteoarthritis Hip Left HOSPITAL COURSE Surgery Information This Encounter Past Procedures (03/16/2023 to Today) Date Procedures Providers Loc / Dept 03/14/2024 Left ARTHROPLASTY REPLACEMENT TOTAL HIP. Chris Zhang M.D.Terhune, Elizabeth, M.D. [facility] OR Flaca Ty Cruz was taken to the operative room by Karson Agustin* for the procedure listed above. The intraoperative as well as the immediate postoperative course were uncomplicated. For further details of the surgery please see the operative note. The patient was transferred from the PACU tothe general care floor for continued observation and monitoring. She progressed in the usual post-operative fashion without complications. The patient was treated with perioperative IV antibiotics. She was given liquids by mouth and eventually advanced as tolerated towards a more general diet. Her pain was well controlled with oral pain medications. Physical therapy / Occupational therapy was consulted for assistance with mobilization and gait training. She was mobilizing without difficulty and was compliant with any activity restrictions. Her incision remained intact with no concerns. Her bowel and bladder function were acceptable. She then met criteria for discharge and was later dismissed from the hospital. For any further details please see the [facility] orthopedic surgery progress note and any other co-managing teams dated 03/15/2024. CONSULTS ORDERED DURING THIS ADMISSION None CONDITION AT DISCHARGE stable Discharge instructions were provided to the patient and caregiver(s). Total time spent in discharge services today: 20 minutes. documented in this encounter Medications at Time of Discharge Medication Sig Dispensed Refills Start Date End Date calcium carbonate-vitamin D3 1,250 mg (500 mg calcium)-5 mcg (200 Unit) per tablet Take 2 tablets by mouth daily with breakfast. cyanocobalamin (VITAMIN B12) 1,000 mcg tablet Take 1,000 mcg by mouth daily. DAILY MULTI-VITAMIN ORAL Take 1 tablet by mouth daily. 12/18/2023 acetaminophen (TylenoL) 500 mg tablet Take 2 [...] primary provider may recommend. 84 tablet 03/14/2024 celecoxib (CeleBREX) 200 mg capsule Take 1 capsule (200 mg total) by mouth daily. 30 capsule 03/14/2024 oxyCODONE (Roxicodone) 5 mg immediate release tabletIndications:Acut [...] prescription pain medications 20 tablet 03/14/2024 03/28/2024 documented as of this encounter Progress Notes * Kiley Ramirez P.Melvin., D.P.T., OCS - 03/15/2024 2:34 PM CDT Physical Therapy Inpatient Treatment SUBJECTIVE Patient's Name: Flaca Arroyo Referring/Attending Provider: Chris Zhagn M.D. Reason for Referral: Physical Therapy Evaluate and Treat History of Present Illness: Flaca Arroyo is a 68 y.o. female who was admitted to [facility] in [place] on 03/14/2024 for Primary Osteoarthritis Hip Left [M16.12] Precautions Weight Bearing Status: Weightbearing as tolerated left lower extremity; left rotator cuff repair 12/05/2023 therefore patient is not putting weight-bearing through left upper extremity including on walker Other Precautions: Posterior hip Pain Assessment: Pain not reported during session. Patient/Caregiver Goals: Decrease pain, Return to home, and Return to highest level of function Subjective Comments: agreed to session. OBJECTIVE Vital Signs Vitals not formally assessed during session. No concerns during chart review and the patient had nosigns or symptoms consistent with vital changes during therapy session. Outcome Measures: -[facility] Inpatient Short Form: AM-[facility] Basic Mobility (V.2) How much help from another person do you currently need???If the patient hasn't done an activity recently, how much help from another person do you think he/she would needif he/she tried? 1. Turning from your back to your side while in a flat bed without using bedrails?: None 2. Moving from lying on your back to sitting on the side of a flat bed without using bedrails?: None 3. Moving to and from a bed to a chair (including a wheelchair)?: A Little 4. Standing up from a chair using your arms (e.g., wheelchair, or bedside chair)?: None 5. To walk in hospital room?: A Little 6. Climbing 3-5 steps with a railing?: A Little AM-PAC Basic Mobility (V.2) Raw Score: 21 AM-PAC Basic Mobility (V.2) Standardized Score: 45.55 Interpretation: Based on scoring guidelines using the raw score value: Those going to home had an average score at or above 18 Those going to facility had an average score at or below 17 Clinicians answer the -PAC Inpatient Short Form based on observed patient activity and/or clinical judgement (ie. patient can be scored without physically performing each activity) Therapeutic Interventions: SUPINE TO/FROM SIT: Assistance Level: Independent Device: none Assistance/Cueing: verbal for Adherence to activity precautions, Completion of transfer, Lower extremity movement/management, Lower extremity placement, Technique, Upper extremity movement/management, and Upper extremity placement Delivery: educated, assessed, and facilitated SIT TO/FROM STAND: Assistance Level: Modified Independent Device: gait belt and front wheeled walker Surface: Bed; wheelchair Assistance/Cueing: verbal for Adherence to activity precautions, Lower extremity placement, Technique, and Upper extremity placement Delivery: educated, instructed, assessed, and facilitated GAIT: Distance: 30 meters Assistance Level:Supervision Device: gait belt and front wheeled walker Quality: steady, step to Assistance/Cueing:verbal for Adherence to activity precautions, Adherence to weight bearing precautions, Forward gaze, Technique, and including adhering to left upper extremity weightbearing precautions on walker Delivery: educated, instructed, assessed, and facilitated Comments: Patient demonstrated safe, stable gait with wheeled walker utilizing step to gait including to ensure no weight-bearing through left upper extremity utilized front wheeled walker STAIRS: Three steps with unilateral handrail Assistance Level: Contact Guard Assistance Navigation Pattern: Ascending: step to, forward, and leading with right Descending: step to, forward, and leading with left Intervention provided: Proper sequencing, Technique, Weight Bearing Precautions, and including weightbearing precautions left upper extremity THERAPEUTIC EXERCISE: Total Joints Exercise: MATT, Per MD protocol/guideline. Educated patient and patient performed bilateral ankle pumps and quadricep sets 10 reps each. Patient is to perform 10 reps every hour when awake for DVT prevention. Also instructed in seated knee active range of motion bilaterally times 10 reps to be performed 2-3 times per day. In addition, patient was instructed in adding at 4 weeks (if able to follow left upper extremity weightbearing precautions at that time) the following standing exercises: Sit to stands, mini squats, up on toes, hip abduction, and hip extension. Education: -Role of PT in acute setting and collaborated with patient and/or family on goals and plan of care. -Activity precautions -Weight bearing precautions -Safe transfer techniques -Home exercise program -bed mobility technique -Hip precautions The patient/family educated on safe transfer techniques with functional mobility/activity. The patient's status was discussed and the following coordination of care occurred with the RN and Family/Caregiver Family/Caregiver Present: Spouse and sister Patient was left in bed at end of session with call light in reach, all needs met and questions answered. Assessment If skilled therapy is recommended, skilled therapy can include physical therapy provided by home health, outpatient clinic, or a post-acute facility. The location of these services is determined by the patient's care team in partnership with patient/family. Level of Care Needed - PT: Assistance with stairs, Assistance with walking and moving around the home From a physical therapy perspective, the level of care above has been recommended for Ms. Arroyo after hospital discharge. This level of care is based on her functional abilities during today's session. This may change throughout the hospital course and will be updated as appropriate. Clinical Impression: Patient presents with impairments including decreased ROM and strength and increased pain typical for above diagnosis, resulting in the following functional deficits. Patient requires assistance for bed mobility, transfers, ambulation on level and stairs, and with ADLs. Patient requires skilled physical therapy for functional mobility and exercises to maximize safety and independence. Today, patient progressed to attaining all physical therapy goals. Rehab potential: Ms. Arroyo has Good potential to achieve established physical therapy goals within the time frame outlined below. Progress: All PT goals achieved Plan Functional Goals: PT Inpatient Goals PT Goal #1: Patient will demonstrate bed mobility with supervision assistance for safe dismissal. PT Goal #1 Status: Achieved PT Goal #2: Patient will demonstrate transfers from various surfaces within weightbearing restrictions with least restrictive gait device and supervision assistance for safe dismissal . PT Goal #2 Status: Achieved PT Goal #3: Patient will be able to ambulate 30 meters within weightbearing restrictions with leastrestrictive gait device and supervision assistance executing task with good safety awareness, stability, and functional strength for safe disposition. PT Goal #3 Status: Achieved PT Goal #4: Patient will be able to demonstrate ambulation within weight bearing restrictions on stairs per home setup with contact guard assist; and patient will demonstrate proper performance and understanding of their home exercise program. PT Goal #4 Status: Achieved Treatment Plan: Plan: Discontinue PT PT Amount: 1 visit per day PT Frequency: 7 times per week Requires Inpatient Follow-Up: No Patient agrees with the plan of care and goals. Treatment interventions may include: Treatment/Interventions: Therapeutic exercise, Therapeutic functional activity, Gait training Billing: Time Spent with Patient Therapeutic Interventions Therapeutic Activity (min): 39 min Time Tracking Total Timed Units (min): 39 min Total Treatment Time (min): 39 min Kiley Ramirez P.T., D.P.T., OCS * Peace Key M.D. - 03/15/2024 7:33 AM CDT Orthopedic Service: [facility] Admission Day: 03/14/2024 SUBJECTIVE Ms. Arroyo was seen in the acute postoperative phase. Pain is well controlled, nausea has improved VITALS Temperature: [36.4 ??C-37.1 ??C] 36.4 ??C Heart Rate: [52-78] 74 Resp Rate: [10-25] 16 Blood Pressure: (101-142)/(39-104) 121/56 SpO2: [95 %-100 %] 98 % Flow Rate (L/min): [0 L/min-2 L/min] 0 L/min Pulse Rate: [52-91] 64 PHYSICAL EXAM GEN: Resting comfortably in bed in no acute distress. Answers questions appropriately. HEART: Regular rate. LUNGS: Normal work of breathing. MSK: Dressing c/d/i without active drainage. On examination of the operative extremity, the patientfires EHL, EDL, TA, FHL, FDL, GSc. SILT DP, SP, tibial, sural, and saphenous distributions. Palpable pedal pulses. Foot warm and well perfused. LABS Lab Results Component Value Date HGB 10.5 (L) 03/15/2024 WBC 15.1 (H) 03/15/2024 PLT 197 03/15/2024 CREATININE 0.75 03/15/2024 NA 141 03/15/2024 IMPRESSION & REPORT Active Issues # acute blood loss anemia - monitor and transfuse as needed # left hip osteoarthritis s/p L MATT Comorbidities Present on Admission # post op nausea/vomiting Status post left MATT with Dr. Zhang Doing well postoperatively. Zofran and IV fluid bolus this even for nausea, orthostasis PLAN - Activity: Weightbearing as tolerated on operative extremity. Physical therapy to mobilize. - Antibiotics: Perioperative cefazolin x2 doses. - Blood: Hemodynamically stable; - Cultures: None - Diet: ADAT to regular diet - Drains: None - DVT Prophylaxis: SCD's and early mobilization. ASA 81 mg BID - Urinary: None - Disposition: Anticipate discharge to self care pending PT For any questions or concerns Please page the [facility] Service pager ([phone]) during the day and [facility] from 6pm to 6am. Dakota Key MD * Peace Key M.D. - 03/14/2024 4:22 PM CDT Orthopedic Service: [facility] Admission Day: 03/14/2024 SUBJECTIVE Ms. Arroyo was seen in the acute postoperative phase. Pain is well controlled, however patient reports nausea upon standing. This has happened to her previously with general anesthesia. VITALS Temperature: [36.4 ??C-36.8 ??C] 36.5 ??C Heart Rate: [52-78] 63 Resp Rate: [10-25] 14 Blood Pressure: (105-145)/(49-104) 107/50 SpO2: [96 %-100 %] 100 % Flow Rate (L/min): [2 L/min] 2 L/min Pulse Rate: [52-80] 60 PHYSICAL EXAM GEN: Resting comfortably in bed in no acute distress. Answers questions appropriately. HEART: Regular rate. LUNGS: Normal work of breathing. MSK: Dressing c/d/i without active drainage. On examination of the operative extremity, the patientfires EHL, EDL, TA, FHL, FDL, GSc. SILT DP, SP, tibial, sural, and saphenous distributions. Palpable pedal pulses. Foot warm and well perfused. LABS Lab Results Component Value Date HGB 13.9 03/13/2024 WBC 5.7 03/13/2024 PLT 247 03/13/2024 CREATININE 0.70 03/13/2024 NA 140 03/13/2024 IMPRESSION & REPORT Active Issues # acute blood loss anemia - monitor and transfuse as needed # left hip osteoarthritis s/p L MATT Comorbidities Present on Admission # post op nausea/vomiting Status post left MATT with Dr. Zhang Doing well postoperatively. Zofran and IV fluid bolus this even for nausea, orthostasis PLAN - Activity: Weightbearing as tolerated on operative extremity. Physical therapy to mobilize. - Antibiotics: Perioperative cefazolin x2 doses. - Blood: Hemodynamically stable; - Cultures: None - Diet: ADAT to regular diet - Drains: None - DVT Prophylaxis: SCD's and early mobilization. ASA 81 mg BID - Urinary: None - Disposition: Anticipate discharge to self care pending PT For any questions or concerns Please page the [facility] Service pager ([phone]) during the day and [facility] from 6pm to 6am. Dakota Key MD * Raymon Hurt Jr., Pharm.DDanay, R.Ph. - 03/14/2024 6:37 AM CDT Images from the original note were not included. Admission Medication History Note Adherence issues: No concerns Medication list source: Patient and Pharmacy or dispense records Medication related information: None Prior to Admission Medications Med List Status: Pharmacy Complete Set By: Raymon Hurt Jr., PharmDioni, R.Ph. at 03/14/2024 6:37AM Taking? Last Dose Informant Start Date End Date LT acetaminophen (TYLENOL) 500 mg tablet Past Week Self 12/05/23 -- Take 1 tablet (500 mg total) by mouth every 6 (six) hours as needed for mild pain or score 1-3 of 10. calcium carbonate-vitamin D3 1,250 mg (500 mg calcium)-5 mcg (200 Unit) per tablet Past Week Self -- -- Take 2 tablets by mouth daily with breakfast. cyanocobalamin (VITAMIN B12) 1,000 mcg tablet Past Week Self -- -- Take 1,000 mcg by mouth daily. DAILY MULTI-VITAMIN ORAL Past Week Self 12/18/23 -- Take 1 tablet by mouth daily. documented in this encounter Consult Notes * Mariola Rosa, O.Melvin. - 03/15/2024 1:06 PM CDT Occupational Therapy Acute Hospital Inpatient Evaluation/Treatment SUBJECTIVE Patient's Name: Flaca Arroyo Referring/Attending Provider: Chris Zhang M.D. Reason for Referral: Occupational Therapy Evaluation and Treatment PERTINENT MEDICAL / SURGICAL HISTORY: Flaca Arroyo has a past medical history of Arthritis, Blood Transfusion No Diagnosis (2005), Complication Anesthesia Initial (1995), Eczema (Have had many years particularly in the winter.), Neuropathy Peripheral, Osteopenia (2019), Other Specified Health Status (degenerative spin disease-2 spinal fusions), Post Operative Nausea/Vomiting, Radiculopathy Cervical, Sprain Subscapularis Muscle Initial Right, and Tendinitis Bicipital Right. Flaca Arroyo has a past surgical history that includes other converted shx (see comment) (N/A, 03/13/2006); Spine surgery (2016 and January 1997); Total hysterectomy (1995); Back surgery; Joint replacement (Right, 2021); Bunionectomy (Bilateral); FUSION SPINE ANTERIOR CERVICAL (N/A, 02/16/2021); Other surgical history (bunion both feet); ARTHROPLASTY REPLACEMENT TOTAL HIP (Right, 03/24/2022); and REPAIR ROTATOR CUFF SHOULDER (Left, 12/05/2023). History of Present Illness: Flaca Arroyo is a 68 y.o. female who was admitted to [facility] in [place] on 03/14/2024 for Primary Osteoarthritis Hip Left [M16.12]. Relevant Medical History: left rotator cuff surgery on 12/05/23 Precautions Weight Bearing Status: Weightbearing as tolerated left lower extremity; left rotator cuff repair 12/05/2023 therefore patient is not putting weight-bearing through left upper extremity including on walker Other Precautions: Posterior hip Falls screen: Fall in the last 12 months: Yes Did you have an injury with the fall: No Are you fearful of falling: No Pain Assessment: Pain Ratin/10 on a 0-10 point scale, Location: Left hip Patient states level of pain is acceptable or tolerable to participate in therapy Subjective Comments: Agreeable to therapy session. Team Communication: The patient's status was discussed and coordination of care occurred with RN Home Living and Equipment: Lives with: Spouse/Significant other Receives help from: Spouse/Significant other Type of Home: House Home Layout: Able to live on main level with bedroom/bathroom Laundry in basement Home Access: Stairs to enter: 2 steps, no rail Assistive Device Owned: Front wheeled walker, Single point cane Adaptive Equipment Owned: Summer School Coordinator, Long Handled Shoe Horn Other DME Owned: None Prior Level of Function and Mobility: Basic Activities of Daily Living: Independent Instrumental Activities of Daily Living: Spouse and patient share certain tasks Functional Mobility: Modified Independent Driving: Yes Patient/Caregiver Goals: To dismiss home with assist from spouse as needed. OBJECTIVE Vital Signs: Vitals not formally assessed during session. No concerns during chart review and the patient had nosigns or symptoms consistent with vital changes during therapy session. Evaluation Assessment: STRENGTH: Not tested- patient is still recovering from rotator cuff surgery- non weight bearnin RANGE OF MOTION: Not formally assessed but appears within functional limits based on observation Outcome Measures: [facility] Inpatient Short Form: Putting on and taking off regular lower body clothing?: A Little Putting on and taking off regular upper body clothing?: None Taking care of personal grooming such as brushing teeth?: None Bathing (including washing, rinsing, drying)?: A Little Toileting, which includes using toilet, bedpan, or urinal?: None Eating meals?: None Daily Activities Raw Score (max 24): 22 Daily Activities Standardized Score: 47.1 Interpretation: Based on scoring guidelines using the raw score value: Those going to home had an average score at or above 18 Those going to facility had an average score at or below 17 Clinicians answer the [facility] Inpatient Short Form based on observed patient activity and/or clinical judgment (ie. patient can be scored without physically performing each activity) Cognition: No observable concerns with cognition at this time Therapeutic Interventions: ACTIVITIES OF DAILY LIVING: TOILETING - Assist Level: Supervision/Set-up - Patient Location: Toilet - Activity: pericare - Therapist Delivery: assessed, instructed, facilitated - Assist/Cues: verbal for proper hand placement, proper leg placement - Patient completed toileting with use of grab bar to assist. BED MOBILITY: SUPINE to SIT - Assist Level: Supervision/Set-up - Device: use of bed rail, trapeze - Therapist Delivery: assessed, facilitated - Assist/Cues: verbal for technique SIT to SUPINE - Assist Level: Modified Independent, Supervision/Set-up - Device: flat bed- no rails - Therapist Delivery: assessed, instructed, educated, facilitated - Assist/Cues: verbal and visual for technique Education/Training Provided: Hip Precautions: - Educated patient/caregiver regarding hip precautions on their surgical extremity including avoidance of excessive hip flexion, adduction, internal rotation, and twisting at the hips. Instructed when bending forward, knees should be spread at least shoulder-width apart. Patient was educated on total hip precautions and how to apply those precautions to activities of daily living and functional transfers. LB Dressing: - Patient instructed on dressing compensatory strategies and aids to assist with don/doff process. Emphasized don/doff strategies including donning clothing over surgical extremity/impaired extremityfirst and doffing over it last. Recommended adaptive equipment: Summer School Coordinator. Home Safety/Fall Prevention: - Educated patient/caregiver regarding home safety and fall prevention strategies to promote safetyand independence including use of recommended assistive device, wearing non-slip footwear, ensuringclear pathways, removing throw rugs, and good lighting throughout the home. Patient was also instructed on using a three-point stance to assist with maintaining her balance while standing-walker in front of her-feet shoulder width apart, while 1 hand is on a solid surface assist with balance. Handouts provided: Protection of hip- handout Patient was left in bed at end of session with call light in reach, all needs met and questions answered. Assessment Discharge Therapy Needs - OT: No further skilled therapy If skilled therapy is recommended, skilled therapy can include occupational therapy provided in home health, outpatient or post-acute facility. The location of these services is determined by patient's care team in partnership with patient/family. Barriers to Discharge Home: Fall risk, None Level of Care Needed - OT: Assistance with showering/bathing, Assistance with dressing, Assistance with meal preparation, Assistance with transportation, Assistance with housekeeping, Assistance withshopping Clinical Impression: Currently, patient presents with postoperative left lower extremity impairments including pain and decreased strength, and total hip precautions resulting in functional deficits including impaired functional mobility and decreased independence with self care tasks. Patient will benefit from initialassistance with bathing and lower body dressing assistance with instrumental activities of daily living patient was instructed on total hip precautions fall prevention strategies. Patient declined getting dressed and does not feel she will have any issues. Therapist did demonstrate using abstracter toassist with donning underwear and pants. Patient reports her spouse will help her as needed. Patient demonstrates supervision to modified independence with toileting, bed mobility, and functional mobility. Patient has no further questions or home going concerns. Plan OT Plan Comments: All acute OT goals met Functional Goals: OT Goal #1: Patient will verbalize understanding of total hip precautions in relation to activitiesof daily living. OT Goal #1 Status: Achieved OT Goal #2: Patient will verbalize understanding of fall prevention strategies. OT Goal #2 Status: Achieved OT Goal #3: Patient will verbalize understanding of modified lower body dressing using adaptive equipment as needed. OT Goal #3 Status: Achieved OT Goal #4: Patient will demonstrate supervision to modified independence with all aspects of toileting. OT Goal #4 Status: Achieved Progress: All OT goals achieved Rehab potential: Ms. Arroyo has good potential to achieve established occupational therapy goals within the time frame outlined below. OT Frequency: OT Frequency: One-time visit OT Inpatient Duration : Until goals are met or hospital discharge Requires Inpatient OT Follow-Up: No Plan: Discontinue OT Treatment interventions may include: Treatment Interventions: Self-care/home management Occupational Therapy Attestation Statement: Patient agrees with the plan of care and goals. Billing: Tiered OT Evaluation Codes: Comorbid Conditions: Arthritis, Other (Comment) Personal Factors: History of falls, Needs assistive device Performance Deficits: 1 - 3 performance deficits Evaluation Complexity: Low Time Spent with Patient Evaluations OT Eval - Low Complexity : 11 min Therapeutic Interventions Home Management Training (min): 24 min Time Tracking Total Timed Units (min): 24 min Total Treatment Time (min): 35 min Mariola Rosa O.T. * Kiley Ramirez PSusan, D.P.T., [facility] - 03/14/2024 5:25 PM CDT Physical Therapy Inpatient Evaluation/Treatment By co-signing this note, the provider certifies the therapy being provided to this patient is reasonable and necessary for the diagnosis or treatment of this patient. SUBJECTIVE Patient's Name: Flaca Arroyo Referring/Attending Provider: Chris Zhang M.D. Reason for Referral: Physical Therapy Evaluate and Treat Pertinent Medical / Surgical History: Flaca Arroyo has a past medical history of Arthritis, Blood Transfusion No Diagnosis (2005), Complication Anesthesia Initial (1995), Eczema (Have had many years particularly in the winter.), Neuropathy Peripheral, Osteopenia (2019), Other Specified Health Status (degenerative spin disease-2 spinal fusions), Post Operative Nausea/Vomiting, Radiculopathy Cervical, Sprain Subscapularis Muscle Initial Right, and Tendinitis Bicipital Right. Flaca Arroyo has a past surgical history that includes other converted shx (see comment) (N/A, 03/13/2006); Spine surgery (2016 and January 1997); Total hysterectomy (1995); Back surgery; Joint replacement (Right, 2021); Bunionectomy (Bilateral); FUSION SPINE ANTERIOR CERVICAL (N/A, 02/16/2021); Other surgical history (bunion both feet); ARTHROPLASTY REPLACEMENT TOTAL HIP (Right, 03/24/2022); and REPAIR ROTATOR CUFF SHOULDER (Left, 12/05/2023). History of Present Illness: Flaca Arroyo is a 68 y.o. female who was admitted to [facility] in [place] on 03/14/2024 for Primary Osteoarthritis Hip Left [M16.12]. Relevant Medical History: Patient is a 68-year-old female who underwent left total hip arthroplastyon 03/14/2024. Precautions Weight Bearing Status: Weightbearing as tolerated left lower extremity; left rotator cuff repair 12/05/2023 therefore patient is not putting weight-bearing through left upper extremity including on walker Other Precautions: Posterior hip RST PT/OT Falls screen: Fall in the last 12 months: Yes Are you fearful of falling: No Current level of function: independent with ambulation and activities of daily living without use of gait aid but tolerance limited due to orthopedic condition. 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 Patient/Caregiver Goals: Return to home and Return to highest level of function Subjective Comments: agreed to session. OBJECTIVE Vital Signs: Vitals not formally assessed during session. No concerns during chart review and the patient had nosigns or symptoms consistent with vital changes during therapy session. Evaluation Assessments: Strength: Left upper extremity impaired status post rotator cuff repair of 12/05/2023; expected post surgical limitation with surgically involved lower extremity. Range of Motion: Left upper extremity impaired status post rotator cuff repair of 12/05/2023; expected post surgical limitation with surgically involved lower extremity. Sensation/Perception: Light touch grossly intact lower extremities Outcome Measures: [facility] Inpatient Short Form: -[facility] Basic Mobility (V.2) How much help from another person do you currently need???If the patient hasn't done an activity recently, how much help from another person do you think he/she would needif he/she tried? 1. Turning from your back to your side while in a flat bed without using bedrails?: A Little 2. Moving from lying on your back to sitting on the side of a flat bed without using bedrails?: A Little 3. Moving to and from a bed to a chair (including a wheelchair)?: A Little 4. Standing up from a chair using your arms (e.g., wheelchair, or bedside chair)?: A Little 5. To walk in hospital room?: A Little 6. Climbing 3-5 steps with a railing?: A Little -[facility] Basic Mobility (V.2) Raw Score: 18 -[facility] Basic Mobility (V.2) Standardized Score: 41.05 Interpretation: Based on scoring guidelines using the raw score value: Those going to home had an average score at or above 18 Those going to facility had an average score at or below 17 Clinicians answer the -[facility] Inpatient Short Form based on observed patient activity and/or clinical judgment (ie. patient can be scored without physically performing each activity) Therapeutic Interventions: SUPINE TO SIT: Assistance Level: Minimal Assistance Device: head of bed elevated Assistance/Cueing: verbal and tactile for Completion of transfer and Lower extremity movement/management Delivery: educated, assessed, and assisted SIT TO SUPINE: Assistance Level: Minimal Assistance Device: head of bed elevated Assistance/Cueing: verbal and tactile for Lower extremity movement/management, Technique, and Upperextremity movement/management Delivery: educated and assessed SIT TO STAND: Assistance Level: Contact Guard Assistance, Minimal Assistance Device: gait belt and front wheeled walker Surface: Bed and commode Assistance/Cueing: verbal for Technique Delivery: educated, assessed, and facilitated STAND TO SIT: Assistance Level: Contact Guard Assistance, Minimal Assistance Device: gait belt and front wheeled walker Surface: Bed and Commode Assistance/Cueing: verbal for Adherence to activity precautions, Lower extremity placement, and Upper extremity placement Delivery: educated, assessed, and facilitated PRE-GAIT: Activity: Utilized front wheeled walker for transfer bed to and from commode Assistance Level: Minimal Assistance of 1, +1 for safety Device: gait belt, front wheeled walker, and patient not weightbearing through left upper extremityonto walker Assistance/Cueing:verbal for Placement of Gait Device and weightbearing as tolerated left lower extremity THERAPEUTIC EXERCISE: Total Joints Exercise: MATT, Per MD protocol/guideline.Educated patient and patient performed bilateral ankle pumps and quadricep sets 10 reps each. Patient is to perform 10 reps every hour when awakefor DVT prevention. Also instructed in progression at next session of seated knee active range of motion bilaterally times 10 reps be performed 2-3 times per day. In addition, patient was instructed in adding at 4 weeks the following standing exercises if able to follow any remaining precautions for left shoulder rotator cuff repair also: Sit to stands, mini squats, up on toes, hip abduction, andhip extension. Education: Provided education on role of physical therapy in the acute setting. Collaborated with patient and/or family on goals and plan of care. Hip Precautions: -Educated patient/caregiver regarding hip precautions on their surgical extremity including avoidance of excessive hip flexion, internal rotation, and twisting at the hips. Patient was educated on total hip precautions and how to apply those precautions to functional transfers and gait. Hip Arthroplasty Precautions: - When bending forward, knees should be spread at least shoulder-width apart. - Movement based on pain/discomfort. - No hip internal rotation or adduction motions/positions. - Avoid extremes of motion in all planes. Example: hyperflexing and twisting of your torso. Home Exercise Program: -Patient and/or family provided education on home exercise program and how to safely implement intodaily routine to increase strength and range of motion. Bed Mobility: -Patient instructed on compensatory strategies to improve transfer in/out of bed. Recommendations provided with adaptations for correct sequencing, technique, and modification tools including leg braid maker and/or bed adjustments. Functional Transfers: -Provided instruction and cues during functional sit to/from stand transfers, including body alignment to surface, appropriate hand placement, and optimal placement of surgical extremity to optimize safety and technique. Weight Bearing: -Patient/Family provided education on weight bearing status/activity restrictions and how that alters mobility including but not limited to: during bed mobility, transfers, and ambulation with the appropriate gait aid. Handouts provided today: Rehabilitation After Total Hip Replacement ([id number]) The patient/family educated on safe transfer techniques with functional mobility/activity. The patient's status was discussed and the following coordination of care occurred with the RN and Family/Caregiver Family/Caregiver Present: Patient's spouse Patient was left in bed at end of session with call light in reach, all needs met and questions answered. Assessment If skilled therapy is recommended, skilled therapy can include physical therapy provided by home health, outpatient clinic, or a post-acute facility. The location of these services is determined by the patient's care team in partnership with patient/family. Level of Care Needed - PT: Assistance with transfers (Comment), Assistance with walking and moving around the home, Assistance with stairs, Assistance with bed mobility Equipment Recommended - PT: Front-wheeled walker Barriers to Discharge Home: Fall risk From a physical therapy perspective, the level of care above has been recommended for Ms. Arroyo after hospital discharge. This level of care is based on her functional abilities during today's session. This may change throughout the hospital course and will be updated as appropriate. Clinical Impression: Currently, patient presents with decreased range of motion, decreased strength, decreased activity tolerance, and weight bearing precautions resulting in the following impaired bed mobility, impairedtransfers, impaired gait, impaired ability to complete ADLs, and impaired ability to complete stairs. Patient did well with weightbearing as tolerated left lower extremity utilizing walker and not placing weight through walker with left upper extremity. Physical therapy treatment is medically necessary to restore and maximize function, maximize safetyand facilitate discharge to home, teach and educate the patient and/or caregivers. Progress: Progressing toward goals Plan PT Plan Comments: Progress bed mobility, transfers, gait level and home exercise program. Add stairs gait. Functional Goals: PT Inpatient Goals PT Goal #1: Patient will demonstrate bed mobility with supervision assistance for safe dismissal. PT Goal #1 Status: Progressing PT Goal #2: Patient will demonstrate transfers from various surfaces within weightbearing restrictions with least restrictive gait device and supervision assistance for safe dismissal . PT Goal #2 Status: Progressing PT Goal #3: Patient will be able to ambulate 20 meters within weightbearing restrictions with leastrestrictive gait device and supervision assistance executing task with good safety awareness, stability, and functional strength for safe disposition. PT Goal #3 Status: Slowly progressing PT Goal #4: Patient will be able to demonstrate ambulation within weight bearing restrictions on stairs (1 stair to enter) per home setup with contact guard assist; and patient will demonstrate proper performance and understanding of their home exercise program. PT Goal #4 Status: Ongoing Flaca Arroyo has Good rehab potential to meet the expected outcomes in a reasonable period of time. Treatment Plan: Plan: Plan of care initiated PT Amount: 1 visit per day PT Frequency: 7 times per week PT Inpatient Duration : Until goals are met or hospital discharge Requires Inpatient Follow-Up: Yes PT - Next Inpatient Appointment: 03/15/24 Patient agrees with the plan of care and goals. Treatment interventions may include: Treatment/Interventions: Therapeutic exercise, Therapeutic functional activity, Gait training Tiered PT Evaluation Codes: Comorbid Conditions: Arthritis, Other (Comment) (Left rotator cuff repair 12/05/2023) Personal Factors: History of falls, Needs assistive device Examination elements: 4+ Clinical Presentation: Stable Clinical Decision Making: Low complexity clinical decision making Billing: Time Spent with Patient Evaluations PT Eval - Low Complexity: 8 min Therapeutic Interventions Therapeutic Activity (min): 20 min Time Tracking Total Timed Units (min): 20 min Total Treatment Time (min): 28 min Kiley Ramirez P.T., D.P.T., OCS documented in this encounter Nursing Notes * Lou Dempsey R.N. - 03/15/2024 3:07 PM CDT Shift Goals: Clinical Goals for the Shift: Patient will report adequate pain relief this shift. Identify possible barriers to meeting goals/advancing plan of care: None End of Shift Summary: Patient alert and orientated to person, place, and time. Vital signs stable on room air. Pain controlled today with scheduled medications. Surgical site clean, dry, intact. Neurovascular checks to left lower intact and WNL. Tolerating regular diet. Voiding, adequate urine output. Bowel sounds present, passing gas. Participated in therapy sessions today. Ambulating with X1 person assist, a wheelchair, and gait belt. Fall precautions maintained at all times. Patient discharged home with family . Mode of transportation wheelchair. Accompanied by volunteer and family. AVS given and discharge instructions reviewed with patient. Prescriptions sent to pharmacy. All belongings sent with patient. Thanked RN for care. Problem: SAFETY ADULT Goal: Maintain a safe environment Outcome: Adequate for Discharge Problem: SAFETY ADULT - RISK FOR FALL AND OR FALL INJURY Goal: Patient remains free from fall/fall injury Outcome: Adequate for Discharge Problem: PAIN - ADULT Goal: PT VERBALIZES/DEMONSTRATES ADEQUATE COMFORT LEVEL OR BASELINE Outcome: Adequate for Discharge Problem: KNOWLEDGE DEFICIT Goal: Patient/family/caregiver demonstrates understanding of disease process, treatment plan, medications, and discharge instructions Outcome: Adequate for Discharge Problem: INFECTION - ADULT Goal: Absence of infection during hospitalization Outcome: Adequate for Discharge Problem: SKIN/TISSUE INTEGRITY Goal: Skin/Tissue integrity maintained or improved Outcome: Adequate for Discharge Goal: Oral and Nasal mucous membranes remain intact Outcome: Adequate for Discharge Problem: DISCHARGE PLANNING Goal: Patient discharge needs identified Outcome: Adequate for Discharge documented in this encounter OR Notes * Op Note - Chris Zhang M.D. - 03/14/2024 8:54 AM CDT PRE-OPERATIVE INDICATION(S): Left hip pain. PRE-OPERATIVE DIAGNOSIS Degenerative arthritis, left hip. POST-OPERATIVE DIAGNOSIS Degenerative arthritis, left hip. A first helper actively participated and was necessary for one or more of the following: opening, exposure and visualization during the case, maintaining hemostasis, wound closure resulting in itssafe and expeditious completion. COMPLICATIONS None immediately apparent. OPERATIVE NOTE NARRATIVE The patient was placed in the lateral decubitus position. The extremities were padded appropriately. Intravenous antibiotics were administered. The left hip was prepped and draped in the usual sterile fashion. A surgical pause was conducted to identify and verify the appropriate patient, surgical site, surgical site marking, and antibiotic administration with 2 grams of cefazolin. An incision was performed over the lateral hip, centered just posterior to the greater trochanter in preparation for a posterolateral approach. Dissection was carried through subcutaneous tissue to the level of the fascia. The fascia of the iliotibial band was divided in the direction of its fibers. The gluteus fredi muscle was divided using a muscle-splitting technique. The sciatic nerve was identified and carefully protected throughout the procedure. The gluteus minimus was elevated from the posterior superior capsule, and the short external rotators were taken down sequentially and tagged. Branches of the medial femoral circumflex vessels were controlled. A large flap of posterior capsule was meticulously saved and tagged. The hip was dislocated posteriorly. The femoral neck was thenosteotomized 10 mm from the superior aspect of the lesser trochanter. The femoral head was inspected and found to have near total loss of cartilage. The acetabulum was inspected and found to have near total loss of cartilage as well. A partial capsulectomy was performed to optimally expose the acetabulum. The acetabulum was reamed with hemispherical reamers to a size 50 mm. The femur was reamed sequentially with Insignia reamers to a size 3 and broached sequentially with Insignia broaches to a size 3. A calcar reamer was used to smooth the calcar. The broach was tested, and fit and bone quality were felt to be satisfactory for use of an uncemented femoral component. Trial reduction was performed, and a +0-mm neck length was chosen to optimize stability and soft tissue tension and to minimize leg length discrepancy. A real 50-mm Trident II acetabular component was press-fit into the acetabulum in appropriate orientation. Excellent stability was achieved, and the component was further secured with 2 cancellous bone screws. A 36-mm inside diameter flat highly crosslinked X3 polyethylene liner was then inserted and checked to ensure it fit securely. A size 3 Insignia standard offset femoral component was then press-fit into the femur, and excellent stability was achieved. A real 36-mm Biolox delta ceramic head with a +0-mm neck length was press-fit onto the femoral component, and the hip was reduced. The leg was stable in extension and external rotation, position of sleep, and flexion of 90 degrees, abduction of 0 degrees, and 90 degrees of internal rotation. The short external rotators and the posterior capsule were then meticulously repaired through bone using four No. 5 Ethibond sutures. Hemostasis was obtained. The wound was thoroughly irrigated with diluted Betadine and sterile normal saline utilizing the pulse lavage. No drains were placed. The fascia was closed with multiple interrupted 0 Vicryl sutures. The subcutaneous tissue was closed with 2-0 interrupted Vicryl sutures followed by a running subcuticular 3-0 Monocryl suture and sterile Dermabond. A sterile dressing was applied to the wound, and the patient was transferred to the post- anesthesia recovery unit (PACU) in stable condition. There were no immediate complications. POST-OPERATIVE PLAN: The patient will receive 24 hours of perioperative antibiotics with 2 grams of cefazolin. VTE prophylaxis will consist of early mobilization, mechanical compressive devices, and 325 mg of aspirin twice daily. The patient will be weight-bearing as tolerated. WOUND TYPE: Type I - Clean (normal). TPR: 3, Trialing of components, implantation of final components Chris Zhang M.D. CT CT Job ID: [id number]/derek documented in this encounter Miscellaneous Notes * Hospital Course - Peace Key M.D. - 03/15/2024 7:35 AM CDT Surgery Information This Encounter Past Procedures (03/16/2023 to Today) Date Procedures Providers Loc / Dept 03/14/2024 Left ARTHROPLASTY REPLACEMENT TOTAL HIP. Chris Zhang M.D.Terhune, Elizabeth, M.D. [facility] Flaca Arroyo was taken to the operative room by Karson Agustin* for the procedure listed above. The intraoperative as well as the immediate postoperative course were uncomplicated. For further details of the surgery please see the operative note. The patient was transferred from the PACU tot general care floor for continued observation and monitoring. She progressed in the usual post-operative fashion without complications. The patient was treated with perioperative IV antibiotics. She was given liquids by mouth and eventually advanced as tolerated towards a more general diet. Her pain was well controlled with oral pain medications. Physical therapy / Occupational therapy was consulted for assistance with mobilization and gait training. She was mobilizing without difficulty and was compliant with any activity restrictions. Her incision remained intact with no concerns. Her bowel and bladder function were acceptable. She then met criteria for discharge and was later dismissed from the hospital. For any further details [facility] and any other co-managing teams dated 03/15/2024. documented in this encounter Plan of Treatment Upcoming Encounters Date Type Department Care Team (Late st Contact Info) Description 06/20/2024 3:00 PM CDT Clinical Communication Virtual Review in [address] [phone] 06/25/2024 1:15 PM CDT Appointment Department of Radiology, [facility], in [address] [phone] Peace Key M.D. 06/25/2024 2:30 PM CDT Office Visit Department of Orthopedic Surgery in [address] [phone] Henry Rey, Jef-Polo., M.S. [address] [place] [phone] 08/20/2024 2:00 PM DOCKMASTER Clinical Support Department of Sports Medicine in [address] [phone] Yan Stewart M.D. [address] [place] [phone] Darius Thompson P.Melvin., D.P.T., SCS-ABPTS [address] [place] [phone] documented as of this encounter Procedures Procedure Name Priority Date/Time Associated Diagnosis Comments CBC WITHOUT DIFFERENTIAL, B Routine 03/15/2024 5:08 AM CDT BASIC METABOLIC PANEL, S/P Routine 03/15/2024 5:08 AM CDT MBC TISSUE DONOR SCREEN TEST SET Routine 03/14/2024 1:29 PM CDT ADULT OXYGEN THERAPY Routine 03/14/2024 9:17 AM CDT DX HIP LEFT 2-3 VIEWS RAD - Routine (most inpatients and all outpatients) 03/14/2024 9:17 AM CDT DX PELVIS 1-2 VIEWS RAD - Routine (most inpatients and all outpatients) 03/14/2024 8:26 AM CDT BACTERIA CULTURE, DONOR Routine 03/14/2024 7:55 AM CDT Primary Osteoarthritis Hip Left ARTHROPLASTY REPLACEMENT TOTAL HIP 03/14/2024 6:57 AM CDT Primary Osteoarthritis Hip Left documented in this encounter Results * (ABNORMAL) CBC without Differential (03/15/2024 5:08 AM CDT) [facility] Hemoglobin 10.5(L) 11.6 - 15.0 g/dL 03/15/2024 [...] Peace Key M.D. LAB BLOOD ADD-ON [facility] [address] [place] [address], [facility] DTL [facility] [address] [place] [address] * (ABNORMAL) Basic Metabolic Panel (03/15/2024 5:08 AM CDT) [facility] Potassium, S 4.5 3.6 - 5.2 mmol/L [...] Peace Key M.D. LAB BLOOD ADD-ON [facility] [address] [place] [address], [place] DTL [place] [address] [place] [address] * MBC Tissue Donor Screen Test (03/14/2024 [...] 1:29 PM CDT 03/14/2024 1:39 PM CDT [facility] DONOR TESTING [facility] - 03/18/2024 2:49 PM CDT Specimen Information: Specimen ID: [id number] Specimen Type: Blood Specimen Collection Start Date: 03/14/2024 ??1:29 PM Specimen Received Date: 03/14/2024 ??1:39 PM Specimen ID: [id number] Specimen Type: Blood Specimen Collection Start Date: 03/14/2024 ??1:29 PM Specimen Received Date: 03/14/2024 ??1:39 PM Specimen ID: [id number] Specimen Type: Blood Specimen Collection Start Date: 03/14/2024 ??1:29 PM Specimen Received Date: 03/14/2024 ??1:39 PM Specimen ID: [id number] Specimen Type: Blood Specimen Collection Start Date: 03/14/2024 ??1:29 PM Specimen Received Date: 03/14/2024 ??1:39 PM Kvng Claudio M.D., Ph.D. LAB BLOOD NON ADD-ON [facility] DONOR TESTING AND [facility] [address] [place] [address], [facility] [address] [place] [address] * DX Hip Left 2-3 Views (03/14/2024 [...] visualized right MATT. Henry Rey P.A.-C., M.S. IMG DIAGNO [...] Zhang M.D. LAB MICROBIOLOGY - GENERAL ORDERABLES [place] [address] [place] [address], [facility] [address] [place] [address] documented in this encounter Visit Diagnoses Diagnosis Primary Osteoarthritis Hip Left- Primary Primary Osteoarthritis Hip Left Difficulty Walking Orthopedic Cause [R26.2] documented in this encounter Admitting Diagnoses Diagnosis Primary Osteoarthritis Hip Left documented in this encounter Administered Medications Inactive Administered Medications - up to 3 most recent administrations Medication Order MAR Action Action Date Dose Rate Site acetaminophen tablet 1,000 mg (TylenoL) 1,000 mg, oral, Every 6 hours, First dose on Maira 03/14/24 at 1400, Ok for pharm to adjust dose based off comorbidities Given 03/15/2024 2:44 PM CDT 1,000 mg Given 03/15/2024 8:38 AM CDT 1,000 mg Given 03/15/2024 2:17 AM CDT 1,000 mg acetaminophen tablet 1,000 mg (TylenoL) 1,000 mg, oral, Once, On Mon03/14/24 at 0700, For 1 dose, Pre-Op Given 03/14/2024 6:47 AM CDT 1,000 mg aspirin chewable tablet 81 mg 81 mg, oral, 2 times daily, First dose on Mon03/14/24 at 2100 Given 03/15/2024 8:39 AM CDT 81 mg Given 03/14/2024 8:18 PM CDT 81 mg calcium carbonate chewable tablet 400 mg of calcium (Tums) 400 mg of calcium, oral, Every 2 hour PRN, indigestion, Starting on Mon03/14/24 at 1252, Doses listed are in mg of elemental calcium. Take with food. 500 mg calcium carbonate contains 200 mg of elemental calcium. Given 03/15/2024 6:39 AM CDT 400 mg of calcium ceFAZolin in dextrose (iso osm) IVPB 2 g (Ancef) 2 g, intravenous, at 200 mL/hr, Administer over 30 Minutes, Every 8 hours, First dose on Mon03/14/24 at 1530, For 2 doses, Start within 8 hours of last IV dose., Drug Monitoring Program: Pharmacist to adjust medication dosing based on indication and drug clearance factors., Indications: Prophylaxis, surgical New Bag 03/14/2024 10:50 PM CDT 2 g 200 mL/hr New Bag 03/14/2024 4:13 PM CDT 2 g 200 mL/hr celecoxib capsule 200 mg (CeleBREX) 200 mg, oral, Once, On Mon03/14/24 at 0700, For 1 dose, Pre-Op Given 03/14/2024 6:47 AM CDT 200 mg dexAMETHasone injection 8 mg (Decadron) 8 mg, intravenous, Once, On Mon03/15/24 at 0700, For 1 dose Given 03/15/2024 6:39 AM CDT 8 mg fentaNYL injection 25 mcg (Sublimaze) 25 mcg, intravenous, Every 2 min PRN, moderate pain or score 4-6 of 10, severe pain or score 7-10 of 10, Starting on Mon03/14/24 at 0917, PACU (only), Up to maximum total dose of 200 mcg Given 03/14/2024 10:51 AM CDT 25 mcg Given 03/14/2024 10:40 AM CDT 25 mcg Given 03/14/2024 10:27 AM CDT 25 mcg ketorolac injection 15 mg (ToradoL) 15 mg, intravenous, Every 6 hours, First dose on Maira 03/14/24 at 1400, For 4 doses, Adult IV push rate: Over 15 seconds. Peds IV push rate: Over 1 minute. Doses > 15 mg IV/IM are discouraged due to lack of additional analgesic benefit., Drug Monitoring Program: Pharmacist to adjust medication dosing based on indication and drug clearance factors. Given 03/15/2024 8:39 AM CDT 15 mg Given 03/15/2024 2:17 AM CDT 15 mg Given 03/14/2024 8:18 PM CDT 15 mg Lactated Ringer's 20 mL/hr, intravenous, Continuous, Starting on Maira 03/14/24 at 0900, PACU & Post-Op Rate/Dose Verify 03/14/2024 10:00 PM CDT 20 mL/hr 20 mL/hr Continued from OR 03/14/2024 9:20 AM CDT 20 mL/hr 20 mL/ hr NaCl 0.9 % bolus 1,000 mL 1,000 mL, intravenous, at 1,000 mL/hr, Administer over 1 Hours, Once, On Maira 03/14/24 at 1645, For 1 dose New Bag 03/14/2024 8:00 PM CDT 1,000 mL 1000 mL/hr oxyCODONE IR tablet 10 mg (Roxicodone) 10 mg, oral, Every 4 hours PRN, severe pain or score 7-10 of 10, Starting on Maira 03/14/24 at 1252, Second line therapy. If patient is greater than 7 after 2 hours, call service for new order. oxyCODONE IR tablet 5 mg (Roxicodone) 5 mg, oral, Every 4 hours PRN, moderate pain or score 4-6 of 10, Starting on Maira 03/14/24 at 1252, Second line therapy oxyCODONE IR tablet 5 mg (Roxicodone) 5 mg, oral, Once as needed, For pain 4 or greater, Starting on Maira 03/14/24 at 0917, For 1 dose, PACU (only) Given 03/14/2024 9:38 AM CDT 5 mg sennosides-docusate sodium 8.6-50 mg per tablet 1 tablet (Senokot-S) 1 tablet, oral, 2 times daily, First dose on Maira 03/14/24 at 2100, Do not give if patient has diarrhea. Given 03/15/2024 8:38 AM CDT 1 tablet Given 03/14/2024 8:18 PM CDT 1 tablet traMADoL tablet 100 mg (Ultram) 100 mg, oral, Every 6 hours PRN, severe pain or score 7-10 of 10, Starting on Maira 03/14/24 at 1252, First line therapy or for pain greater than comfort goal (not to exceed 400 mg in 24 hours)., Restriction Criteria (Pharmacy will review and approve if criteria met): Use in adults 18 years and older traMADoL tablet 50 mg (Ultram) 50 mg, oral, Every 6 hours PRN, moderate pain or score 4-6 of 10, Starting on Maira 03/14/24 at 1252, First line therapy, Restriction Criteria (Pharmacy will review and approve if criteria met): Use in adults 18 years and older Given 03/14/2024 5:41 PM CDT 50 mg documented in this encounter Active and Recently Administered Medications Times are shown in CDT. Scheduled Medication Order 03/13/2024 03/14/2024 03/15/2024 acetaminophen tablet 1,000 mg (TylenoL) 1,000 mg, oral, Every 6 hours, First dose on Maira 03/14/24 at 1400, Ok for pharm to adjust dose based off comorbidities 1403 (Given - Provider: Dawn Christine R.N.)2018 (Given - Provider: Dawn Christine R.N.) 0217 (Given - Provider: Issa Obando RHany)0838 (Given - Provider: Lou Dempsey RDanayN.)1442 (Given - Provider: Lou Dempsey RDanayN.) acetaminophen tablet 1,000 mg (TylenoL) (COMPLETED) 1,000 mg, oral, Once, On Maira 03/14/24 at 0700, For 1 dose, Pre-Op 0647 (Given - Provider: Seth Gonzalez RHany) aspirin chewable tablet 81 mg 81 mg, oral, 2 times daily, First dose on Maira 03/14/24 at 2100 2018 (Given - Provider: Dawn Christine RDanayN.) 0839 (Given - Provider: Lou Dempsey RDanayN.) ceFAZolin in dextrose (iso osm) IVPB 2 g (Ancef) (COMPLETED) 2 g, intravenous, at 200 mL/hr, Administer over 30 Minutes, Every 8 hours, First dose on Maira 03/14/24 at 1530, For 2 doses, Start within 8 hours of last IV dose., Drug Monitoring Program: Pharmacist to adjust medication dosing based on indication and drug clearance factors., Indications: Prophylaxis, surgical 1613 (New Bag - Provider: Dawn Christine RDanayN.)2250 (New Bag - Provider: Issa Obando RDanayN.) ceFAZolin injection 2 g (Ancef) (COMPLETED) 2 g, intravenous, Once, On Maira 03/14/24 at 0700, For 1 dose, Intra-Op, Preoperatively within 1 hour prior to surgical incision If needed, reconstitute vial per package insert instructions. See IVAG for administration guidelines., Drug Monitoring Program: Pharmacist to adjust medication dosing based on indication and drug clearance factors., Indications: Prophylaxis, surgical 0739 (Given - Provider: Nathalie Romano RDaanyNDanay) celecoxib capsule 200 mg (CeleBREX) (COMPLETED) 200 mg, oral, Once, On Maira 03/14/24 at 0700, For 1 dose, Pre-Op 0647 (Given - Provider: Seth Gonzalez RDanayNDanay) dexAMETHasone injection 8 mg (Decadron) (COMPLETED) 8 mg, intravenous, Once, On Mon03/15/24 at 0700, For 1 dose 0639 (Given - Provid er: Issa Obando RDanayNDanay) ketorolac injection 15 mg (ToradoL) (COMPLETED) 15 mg, intravenous, Every 6 hours, First dose on Maira 03/14/24 at 1400, For 4 doses, Adult IV push rate: Over 15 seconds. Peds IV push rate: Over 1 minute. Doses > 15 mg IV/IM are discouraged due to lack of additional analgesic benefit., Drug Monitoring Program: Pharmacist to adjust medication dosing based on indication and drug clearance factors. 1402 (Given - Provider: Dawn Christine R.N.)2018 (Given - Provider: Dawn Christine R.N.) 0217 (Given - Provider: Issa Obando R.N.)0839 (Given - Provider: Lou Dempsey R.N.) NaCl 0.9 % bolus 1,000 mL (COMPLETED) 1,000 mL, intravenous, at 1,000 mL/hr, Administer over 1 Hours, Once, On Maira 03/14/24 at 1645, For 1 dose 2000 (New Bag - Provider: Dawn Christine R.N.) sennosides-docusate sodium 8.6-50 mg per tablet 1 tablet (Senokot-S) 1 tablet, oral, 2 times daily, First dose on Maira 03/14/24 at 2100, Do not give if patient has diarrhea. 2018 (Given - Provider: Dawn Christine R.N.) 0838 (Given - Provider: Lou Dempsey R.N.) tranexamic acid in NaCl IVPB 1,000 mg (Cyklokapron) (COMPLETED) 1,000 mg (1 g), intravenous, at 300 mL/hr, Administer over 20 Minutes, Once, On Maira 03/14/24 at 0700, For 1 dose, Intra-Op, Administer in OR upon induction 0739 (Given - Provider: Nathalie Romano R.N.) tranexamic acid in NaCl IVPB 1,000 mg (Cyklokapron) (COMPLETED) 1,000 mg (1 g), intravenous, at 300 mL/hr, Administer over 20 Minutes, Once, On Maira 03/14/24 at 0700, For 1 dose, Intra-Op, Administer in OR just before dropping tourniquet 0838 (Given - Provider: Nathalie Romano R.N.) Continuous Medication Order 03/13/2024 03/14/2024 03/15/2024 Lactated Ringer's 20 mL/hr, intravenous, Continuous, Starting on Maira 03/14/24 at 0900, PACU & Post-Op 0920 (Continued from OR - Provider: Vicki Vasquez R.N.)2200 (Rate/Dose Verify - Provider: Dawn Christine R.N.) PRN Medication Order 03/13/2024 03/14/2024 03/15/2024 BUPivacaine 0.25 % (2.5 mg/mL) injection (Marcaine) (CANCELED) As needed, Starting on Maira 03/14/24 at 0827, Intra-Op 0827 (Given - Provider: Chris Zhang M.D.) BUPivacaine PF 120 mg, cefuroxime 750 mg, EPINEPHrine 300 mcg, methylPREDNISolone acetate 40 mg in NaCl 0.9% 60 mL injection (Periarticular) (COMPLETED) 60 mL, periarticular, Once in surgery, OR use only, Starting on Maira 03/14/24 at 0644, For 1 dose, Intra-Op 0828 (Given - Provider: Chris Zhang M.D.) calcium carbonate chewable tablet 400 mg of calcium (Tums) 400 mg of calcium, oral, Every 2 hour PRN, indigestion, Starting on Maira 03/14/24 at 1252, Doses listed are in mg of elemental calcium. Take with food. 500 mg calcium carbonate contains 200 mg of elemental calcium. 0639 (Given - Provider: Issa Obando R.N.) carboxymethylcellulose 0.5 % ophthalmic solution 2 drop (Refresh Plus) 2 drop, both eyes, 4 times daily PRN, dry eyes, Starting on Maira 03/14/24 at 1252 fentaNYL injection 25 mcg (Sublimaze) (CANCELED) 25 mcg, intravenous, Every 2 min PRN, moderate pain or score 4-6 of 10, severe pain or score 7-10 of 10, Starting on Maira 03/14/24 at 0917, PACU (only), Up to maximum total dose of 200 mcg 0938 (Given - Provider: Vicki Vasquez RHany)0947 (Given - Provider: Vicki Vasquez R.N.)0951 (Given - Provider: Vicki Vasquez R.N.)1022 (Given - Provider: Michelle Fairchild R.N., CCRN, CATN)1027 (Given - Provider: Michelle Fairchild R.N., CCRN, CATN)1040 (Given - Provider: Michelle Fairchild R.N., CCRN, CATN)1051 (Given - Provider: Michelle Fairchild R.N., CCRN, CATN) haloperidol lactate injection 1 mg (HaldoL) 1 mg, intravenous, Every 6 hours PRN, nausea, vomiting, Starting on Maira 03/14/24 at 1252, For 48 hours, Total of 3 doses in 24 hour period. RASS must be -2 or higher to administer. Reassess for nausea or vomiting after at least 10 minutes. If nausea or vomiting persists administer next ordered antiemetic medications (order for antiemetic medication administration ondansetron then haloperidol then prochlorperazine) loratadine tablet 10 mg (Claritin) 10 mg, oral, Daily PRN, allergies, for opioid induced pruritus, Starting on Maira 03/14/24 at 1252, Drug Monitoring Program: Pharmacist to adjust medication dosing based on indication and drug clearance factors. naloxone injection 0.2 mg (Narcan) 0.2 mg, intravenous, As needed, respiratory depression, Starting on Maira 03/14/24 at 1252, For RASS Score -4 or less, respiratory rate of less than 8 breaths/min. Notify provider/service and rapid response team (if available at institution). ondansetron (PF) injection 4 mg (Zofran) 4 mg, intravenous, Every 6 hours PRN, nausea, vomiting, Starting on Maira 03/14/24 at 1252, For 48 hours, Reassess for nausea or vomiting after at least 10 minutes. If nausea or vomiting persists administer next ordered antiemetic medications (order for antiemetic medication administration ondansetron then haloperidol then prochlorperazine). oxyCODONE IR tablet 10 mg (Roxicodone)(Linked Group 1) 10 mg, oral, Every 4 hours PRN, severe pain or score 7-10 of 10, Starting on Maira 03/14/24 at 1252, Second line therapy. If patient is greater than 7 after 2 hours, call service for new order. oxyCODONE IR tablet 5 mg (Roxicodone)(Linked Group 1) 5 mg, oral, Every 4 hours PRN, moderate pain or score 4-6 of 10, Starting on Maira 03/14/24 at 1252, Second line therapy oxyCODONE IR tablet 5 mg (Roxicodone) (COMPLETED) 5 mg, oral, Once as needed, For pain 4 or greater, Starting on Maira 03/14/24 at 0917, For 1 dose, PACU (only) 0938 (Given - Provider: Vicki Vasquez R.N.) povidone iodine 0.25% in NaCl 0.9% irrigation solution (COMPLETED) irrigation, Once in surgery, OR use only, Starting on Maira 03/14/24 at 0644, For 1 dose, Intra-Op, IRRIGATION USE ONLY 0828 (Given - Provider: Chris Zhang M.D.) prochlorperazine injection 5 mg (Compazine) 5 mg, intravenous, Every 6 hours PRN, nausea, vomiting, Starting on Maira 03/14/24 at 1252, For 48 hours, RASS must be -2 or higher to administer. Reassess for nausea/vomiting after at least 10 minutes. If nausea or vomiting persists administer next ordered antiemetic medications (order for antiemetic medication administration ondansetron then haloperidol then prochlorperazine) traMADoL tablet 100 mg (Ultram)(Linked Group 2) 100 mg, oral, Every 6 hours PRN, severe pain or score 7-10 of 10, Starting on Maira 03/14/24 at 1252, First line therapy or for pain greater than comfort goal (not to exceed 400 mg in 24 hours)., Restriction Criteria (Pharmacy will review and approve if criteria met): Use in adults 18 years and older 174 (See Alternative - Provider: Dawn Christine R.N.) traMADoL tablet 50 mg (Ultram)(Linked Group 2) 50 mg, oral, Every 6 hours PRN, moderate pain or score 4-6 of 10, Starting on Maira 03/14/24 at 1252, First line therapy, Restriction Criteria (Pharmacy will review and approve if criteria met): Use in adults 18 years and older 174 (Given - Provider: Dawn Christine R.N.) Linked Groups Order Group 1: oxyCODONE IR tablet 5 mg (Roxicodone)Jump to med 5 mg, oral, Every 4 hours PRN, moderate pain or score 4-6 of 10, Starting on Maira 03/14/24 at 1252, Second line therapy Or oxyCODONE IR tablet 10 mg (Roxicodone)Jump to med 10 mg, oral, Every 4 hours PRN, severe pain or score 7-10 of 10, Starting on Maira 03/14/24 at 1252, Second line therapy. If patient is greater than 7 after 2 hours, call service for new order. Group 2: traMADoL tablet 50 mg (Ultram)Jump to med 50 mg, oral, Every 6 hours PRN, moderate pain or score 4-6 of 10, Starting on Maira 03/14/24 at 1252, First line therapy, Restriction Criteria (Pharmacy will review and approve if criteria met): Use in adults 18 years and older Or traMADoL tablet 100 mg (Ultram)Jump to med 100 mg, oral, Every 6 hours PRN, severe pain or score 7-10 of 10, Starting on Maira 03/14/24 at 1252, First line therapy or for pain greater than comfort goal (not to exceed 400 mg in 24 hours)., Restriction Criteria (Pharmacy will review and approve if criteria met): Use in adults 18 years and older documented in this encounter Care Teams Drafting Detailer Relationship Specialty Start Date End Date Elsewhere, Pcp PCP - General Family Medicine 02/11/21 documented as of this encounter
--- OUTSIDE RECORDS SUMMARY | 2024-06-07 15:16 | XMS_ITS | Encounter Summary ---
Author Organization [facility] Address [address] [place] [id number] Care Team Providers Care Firefighting Equipment Specialist Name Role Phone Elsewhere, Pcp Primary Care Provider Unavailabl e Reason for Visit * Reason Comments Pre-op Exam * Outpatient (Routine) - Closed Specialty Diagnoses / Procedures Referred By Shruthi gracia Referred To Contact Orthopedic Surgery Henry Rey P.A.-C., M.S. [address] [place] [address] [facility] Referral ID Status Reason Start Date Expiration Date Visits Re quested Visits Authorized [id number] Closed 11/20/2023 05/21/2025 1 1 Encounter Details Date Type Department Care Team (Latest Contact Info) Description 03/13/2024 9:15 AM CDT Office Visit Department of Orthopedic Surgery in [place], [place] [address] [place] [phone] Chris Zhang M.D. [address] [place] [phone] Primary Osteoarthritis Hip Left (Primary Dx) Social History Tobacco Use Types Packs/Day Years Used Date Smoking Tobacco: Never Smokeless Tobacco: Never Alcohol Use Standard Drinks/Week Comments Yes 3 (1 standard drink = 0.6 oz pur e alcohol) [facility] Utilities Answer Date Recorded In [...] How often do you attend chur or gnosticist services? More than 4 times per year 07/01/2022 Do you belong to any clubs o r organizations such as pentecostalism groups, unions, fraternal or athletic groups, or [...] care, and heating? Not very hard 08/02/2023 [facility] [place] of Occupat ional Health - Occupational Stress [...] your living situation today? [facility] 03/14/2024 Education Answer Date Recorded What is the highest level of school you have completed or the highest degree you have received? 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 - 03/13/2024 9:15 AM CDT Flaca Arroyo was assessed per the Orthopedic Bone Donation Program Protocol. Patient meets inclusion criteria. Patient has no exclusion criteria. LAB SECTION: Initial Tests (Completed as an outpatient after clinic or the morning after surgery with routine post-operative labs.) * Bone Donor Screen Test Set [64256] HIV-1/-2 Ab Screen Donor, HBsAg Screen Donor, HBc Total Ab Donor, HCV Ab Screen Donor, HTLV-I/-II Ab Screen Donor, Syphilis Ab Screen Donor, [facility] MPX Individual Donor Screen, and West Nile Virus [facility] Donor. * Chris Zhang M.D. - 03/13/2024 9:15 AM CDT CHIEF COMPLAINT/PURPOSE OF VISIT Preoperative surgical listing visit for anticipated left total hip arthroplasty. Pain 03/27. HISTORY OF PRESENT ILLNESS Flaca Arroyo is a pleasant 68 y.o. female who presents to clinic today for follow-up of debilitating left hip pain. The patient has failed conservative treatment and would like to proceed with theabove procedure. PHYSICAL EXAMINATION General: The physical examination has been documented and updated on the total joint arthroplasty form. There are no changes from the initial consultation. DIAGNOSTICS Review of radiographs reveal advanced degenerative arthritis of the left hip with joint space narrowing, osteophyte formation, and subchondral sclerosis. LABS: No pertinent labs to report. ASSESSMENT / PLAN #1 Degenerative arthritis of the left hip We will proceed with the planned procedure. The patient is in the process of completing the preoperative evaluation, including preoperative medical clearance, laboratories, and appropriate imaging studies. Medications and allergies were re-reviewed. The patient was provided with chlorhexidine packets and instructed on the required preoperative washes. In addition, the patient was made aware of the NPO rules, signed the written informed consent, and was given the surgical listing card. I have discussed the increased risk of periprosthetic joint infection, and the precautions we will take. I have discussed the increased risk of VTE as well, and the precautions we will take. We will utilize aspirin twice daily. She will stay overnight given her nausea mono last time. She is aware of increased risk of dislocation as well as periprosthetic fracture. This is markedly increased with lumbar spine fusion. Of note, she will require general anesthesia. Surgical Grade A. INFORMED CONSENT: We discussed the goals and potential benefits of surgery. We discussed alternatives to the proposedsurgery and potential risks of surgery. The patient understands that the risks include but are not limited to medical problems, infection, bleeding, nerve damage, blood clot problems, prosthetic loosening, wear or failure, stiffness, skin healing problems, ligament or tendon problems, instability problems, or ongoing pain. Discussed the risks, benefits, and alternatives of the procedure and of possible blood transfusion.Discussed advance directives and the necessity of other members of the healthcare team participating in the procedure. We discussed the possibility of overlapping procedures during non-critical portions of the case and that a qualified surgeon would be available if needed. All questions answered and consent given. We reviewed the fact that the patient's surgery may involve the use of a medical care manager made by a company with which I or one of my partners have collaborated to design, develop, or improve orthopedic implants, instruments, or products. Both the [facility] and the individual surgeons involved receive royalty payments from the use of those specific devices at other institutions, but no royalties or any other payments are paid for the use of those devices with any [facility] patient. The clinical rationale for the use of those devices as well as the availability and applicability of alternative devices was reviewed. The patient understands that the final decision for the use of a specific medical care manager often is made at the time of surgery. All of the patient's questions were answered; the patient understands and agrees with my approach to device selection and wants to proceed. The risks, benefits, and alternatives to the planned procedure were discussed in detail, including the risk of exposure to COVID-19 within the facility. All questions pertaining to the procedure and these risks were answered and the patient agreed to proceed. documented in this encounter Plan of Treatment Upcoming Encounters Date Type Department Care Team (Late st Contact Info) Description 06/20/2024 3:00 PM CDT Clinical Communication Virtual Review in [place], [place] [address] [place] [address] 06/25/2024 1:15 PM CDT Appointment Department of Radiology, [facility], in [place], [place] [address] [place] [phone] Peace Key M.D. 06/25/2024 2:30 PM CDT Office Visit Department of Orthopedic Surgery in [place], [place] [address] [place] [phone] Henry Rey P.A.-Polo., M.S. [address] [place] [phone] 08/20/2024 2:00 PM FORGE TENDER Clinical Support Department of Sports Medicine in [address] [phone] Yan Stewart M.D. [address] [place] [phone] Darius Thompson PCaleb., D.P.T., [facility] [address] [place] [phone] documented as of this encounter Visit Diagnoses Diagnosis Primary Osteoarthritis Hip Left- Primary documented in this encounter Care Teams Firefighting Equipment Specialist Relationship Specialty Start Date End Date Elsewhere, Pcp PCP - General Family Medicine 02/11/21 documented as of this encounter
--- OUTSIDE RECORDS SUMMARY | 2024-06-07 15:16 | XMS_ITS | Encounter Summary ---
Author Organization [facility] Address [address] [place] [address] Care Team Providers Care Contour Sander Name Role Phone Elsewhere, Pcp Primary Care Provider Unavailabl e Reason for Visit * Auth/Cert (Routine) Specialty Diagnoses / Procedures Referred By Shruthi t Referred To Contact Diagnoses Primary Osteoarthritis Hip Left Primary Osteoarthritis Hip Left [M16.12] Procedures KS ARTHRO ACETAB&FEM PROSTH (MATT) Left ARTHROPLASTY REPLACEMENT TOTAL HIP Chris Zhang M.D. 200 [place] [address] Referral ID Status Reason Start Date Expiration Date Visits Re quested Visits Authorized [id number] 1 1 Encounter Details Date Type Department Care Team (Late st Contact Info) Description 03/14/2024 6:55 AM CDT - 03/14/2024 9:31 AM CDT Surgery [facility] [address] [place] [address] Chris Zhang M.D. [address] [place] [phone] Left ARTHROPLASTY REPLACEMENT TOTAL HIP. Social History Tobacco Use Types Packs/Day Years Used Date Smoking Tobacco: Never Smokeless Tobacco: Never Alcohol Use Standard Drinks/Week Comments Yes 3 (1 standard drink = 0.6 oz pur e alcohol) [facility] Utilities Answer Date Recorded In the past 12 months has th e electric, gas, oil, or water company [...] How often do you attend chur or mormonism services? More than 4 times [...] care, and heating? 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 - 03/15/2024 7:36 AM CDT DISCHARGE SUMMARY BRIEF OVERVIEW Hospital: [facility] Discharge Provider: Chris Zhang M.D. Primary Team: [facility] Orthopedic Surgery - [facility] Primary Care Providers: [...] TOTAL HIP. Chris Zhang M.D.Terhune, Elizabeth, M.D. [facility] ROEI OR DISCHARGE DISPOSITION Home or Self Care [1] ACTIVE ISSUES REQUIRING FOLLOW UP OUTPATIENT FOLLOW UP Scheduled Appointments 04/15/2024 11:15 AM DX ROCH [address] Radiology 04/15/2024 12:45 PM MR ROCN LO MR 28 1.5T Radiology For appointment [...] Left ARTHROPLASTY REPLACEMENT TOTAL HIP. Chris Zhang M.D.Peace Key M.D. [facility] OR Flaca PandyaDanay Cruz was taken to the operative room [...] For any further details please see the [facility] orthopedic surgery progress note and any [...] Progress Notes * Kiley Ramirez P.Melvin., D.P.T., [facility] - 03/15/2024 2:34 PM CDT Physical Therapy Inpatient Treatment SUBJECTIVE Patient's Name: Flaca Arroyo Referring/Attending Provider: Chris Zhang M.D. Reason for Referral: Physical Therapy Evaluate and Treat History of Present Illness: Flaca Arroyo is a 68 y.o. female who was admitted to [facility] in [place] on 03/14/2024 for Primary Osteoarthritis Hip Left [...] vital changes during therapy session. Outcome Measures: [facility] Inpatient Short Form: -[facility] Basic Mobility (V.2) How much help from [...] 3-5 steps with a railing?: A Little -[facility] Basic Mobility (V.2) Raw Score: 21 -[facility] Basic Mobility (V.2) Standardized Score: 45.55 Interpretation: Based on scoring guidelines using the raw score value: Those going to home had an average score at or above 18 Those going to facility had an average score at or below 17 Clinicians answer the -[facility] Inpatient Short Form based on observed patient [...] - 03/15/2024 7:33 AM CDT Orthopedic Service: [facility] Admission Day: 03/14/2024 SUBJECTIVE Ms. Arroyo [...] concerns Please page the [facility] Service pager ([phone]) during the day and [facility] from 6pm to 6am. Dakota Key MD * Peace Key M.D. - 03/14/2024 4:22 PM CDT Orthopedic Service: [facility] Admission Day: 03/14/2024 SUBJECTIVE Ms. Arroyo [...] any questions or concerns Please page the [facility] Service pager [phone]) during the day and [facility] from 6pm to 6am. Dakota Key MD * Raymon Hurt Jr., PharmDioni, R.Ph. - 03/14/2024 6:37 AM CDT Images from the original note were not included. Admission Medication History Note Adherence issues: No concerns Medication list source: Patient and Pharmacy or dispense records Medication related information: None Prior to Admission Medications Med List Status: Pharmacy Complete Set By: Raymon Hurt Jr., Candido, R.Ph. at 03/14/2024 6:37AM Taking? Last Dose [...] 68 y.o. female who was admitted to [facility] in [place] on 03/14/2024 for Primary Osteoarthritis Hip Left [...] walker, Single point cane Adaptive Equipment Owned: Compliance Attorney, Long Handled Shoe Horn Other DME Owned: [...] functional limits based on observation Outcome Measures: [facility] Inpatient Short Form: Putting on and taking [...] at or below 17 Clinicians answer the [facility] Inpatient Short Form based on observed patient [...] doffing over it last. Recommended adaptive equipment: Compliance Attorney. Home Safety/Fall Prevention: - Educated patient/caregiver regarding [...] have any issues. Therapist did demonstrate using marketing support manager toassist with donning underwear and pants. Patient [...] min Mariola Rosa O.T. * Kiley Ramirez P.T., D.P.T., [facility] - 03/14/2024 5:25 PM CDT Physical Therapy [...] 68 y.o. female who was admitted to [facility] in [place] on 03/14/2024 for Primary Osteoarthritis Hip Left [...] walker and Single point cane Shower chair Compliance Attorney/grabber Pain Assessment: Pain not reported during session. [...] touch grossly intact lower extremities Outcome Measures: -[facility] Inpatient Short Form: -[facility] Basic Mobility (V.2) How much help from [...] 3-5 steps with a railing?: A Little -[facility] Basic Mobility (V.2) Raw Score: 18 -[facility] Basic Mobility (V.2) Standardized Score: 41.05 Interpretation: Based on scoring guidelines using the raw score value: Those going to home had an average score at or above 18 Those going to facility had an average score at or below 17 Clinicians answer the -[facility] Inpatient Short Form based on observed patient [...] sequencing, technique, and modification tools including leg deputy county attorney and/or bed adjustments. Functional Transfers: -Provided instruction [...] provided today: Rehabilitation After Total Hip Replacement ([id number]) The patient/family educated on safe transfer techniques [...] POST-OPERATIVE DIAGNOSIS Degenerative arthritis, left hip. A car rental sales assistant actively participated and was necessary for one [...] Chris Zhang M.D. CT CT Job ID: [id number]/derek documented in this encounter Miscellaneous Notes * Hospital Course - Peace Key M.D. - 03/15/2024 7:35 AM CDT Surgery Information This Encounter Past Procedures (03/16/2023 to Today) Date Procedures Providers Loc / Dept 03/14/2024 Left ARTHROPLASTY REPLACEMENT TOTAL HIP. Chris Zhang M.D.Terhune, Elizabeth, M.D. [facility] OR Flaca Arroyo was taken to [...] For any further details please see the [facility] orthopedic surgery progress note and any other co-managing teams dated 03/15/2024. documented in this encounter Plan of Treatment Upcoming Encounters Date Type Department Care Team (Late st Contact Info) Description 06/20/2024 3:00 PM CDT Clinical Communication Virtual Review in [place], [place] [address] [place] [address] 06/25/2024 1:15 PM CDT Appointment Department of Radiology, [facility], in [address] [phone] Peace Key M.D. 06/25/2024 2:30 PM CDT Office Visit Department of Orthopedic Surgery in [address] [phone] Henry Rey P.A.-C., M.S. [address] [place] [phone] 08/20/2024 2:00 PM TUBE COVERER Clinical Support Department of Sports Medicine in [address] [phone] Yan Stewart M.D. [address] [place] [phone] Darius Thompson P.T., D.P.T., [facility] [address] [place] [phone] documented as of this encounter Procedures Procedure [...] CBC without Differential (03/15/2024 5:08 AM CDT) Hemoglobin 10.5(L) 11.6 - 15.0 g/dL 03/15/2024 [...] CDT Peace Key M.D. LAB BLOOD ADD-ON [facility] [address] [place] [address], [facility] DTL [facility] [address] [place] [address] * (ABNORMAL) Basic Metabolic Panel (03/15/2024 5:08 AM CDT) Potassium, S 4.5 3.6 - 5.2 mmol/L [...] CDT Peace Key M.D. LAB BLOOD ADD-ON [facility] [address] [place] [address], [facility] [address] [place] [address] * MBC Tissue Donor Screen Test (03/14/2024 [...] 1:29 PM CDT 03/14/2024 1:39 PM CDT [facility] - 03/18/2024 2:49 PM CDT Specimen Information: Specimen ID: [id number] Specimen Type: Blood Specimen Collection Start Date: 03/14/2024 ??1:29 PM Specimen Received Date: 03/14/2024 ??1:39 PM Specimen ID: [id number] Specimen Type: Blood Specimen Collection Start Date: 03/14/2024 ??1:29 PM Specimen Received Date: 03/14/2024 ??1:39 PM Specimen ID: [id number] Specimen Type: Blood Specimen Collection Start Date: 03/14/2024 ??1:29 PM Specimen Received Date: 03/14/2024 ??1:39 PM Specimen ID: [id number] Specimen Type: Blood Specimen Collection Start Date: 03/14/2024 ??1:29 PM Specimen Received Date: 03/14/2024 ??1:39 PM Kvng Claudio M.D., Ph.D. LAB BLOOD NON ADD-ON Performing Organization Address City/State/[facility] Co de Phone Number [facility] [address] [place] [address], [facility], Donor Testing [facility] [address] [place] [address] * DX Hip Left 2-3 Views (03/14/2024 [...] purposes. Partially visualized right MATT. Henry Rey P.A.-C. M.S. IMG DIAGNO STIC IMAGING PROCEDURES * [...] Zhang M.D. LAB MICROBIOLOGY - GENERAL ORDERABLES Performing Organization Address City/State/[facility] [place] [address], [facility] 200 [place] [address] documented in this encounter Visit Diagnoses Diagnosis Primary Osteoarthritis Hip Left- Primary Primary Osteoarthritis Hip Left Difficulty Walking Orthopedic Cause [R26.2] Primary Osteoarthritis Hip Left documented in this encounter Admitting Diagnoses Diagnosis [...] mg (TylenoL) 1,000 mg, oral, Once, On Maira 03/14/24 at 0700, For 1 dose, Pre-Op Given 03/14/2024 6:47 AM CDT 1,000 mg aspirin chewable tablet 81 mg 81 mg, oral, 2 times daily, First dose on Maira 03/14/24 at 2100 Given 03/15/2024 8:39 AM CDT 81 mg Given 03/14/2024 8:18 PM CDT 81 mg BUPivacaine 0.25 % (2.5 mg/mL) injection (Marcaine) As needed, Starting on Maira 03/14/24 at 0827, Intra-Op Given 03/14/2024 8:27 AM CDT 30 mL BUPivacaine PF 120 mg, cefuroxime 750 mg, EPINEPHrine 300 mcg, methylPREDNISolone acetate 40 mg in NaCl 0.9% 60 mL injection (Periarticular) 60 mL, periarticular, Once in surgery, OR use only, Starting on Maira 03/14/24 at 0644, For 1 dose, Intra-Op Given 03/14/2024 8:28 AM CDT calcium carbonate chewable tablet 400 mg of [...] mg (CeleBREX) 200 mg, oral, Once, On Maira 03/14/24 at 0700, For 1 dose, Pre-Op Given [...] Given 03/14/2024 9:38 AM CDT 5 mg povidone iodine 0.25% in NaCl 0.9% irrigation solution irrigation, Once in surgery, OR use only, Starting on Maira 03/14/24 at 0644, For 1 dose, Intra-Op, IRRIGATION USE ONLY Given 03/14/2024 8:28 AM CDT 1,000 mL Left Hip sennosides-docusate sodium 8.6-50 mg per tablet 1 [...] off comorbidities 1403 (Given - Provider: Dawn Christine, R.N.)2018 (Given - Provider: Dawn Christine R.N.) 0217 (Given - Provider: Issa Obando R.N.)0838 (Given - Provider: Lou Dempsey R.N.)1444 (Given - Provider: Lou Dempsey R.N.) acetaminophen tablet 1,000 mg (TylenoL) (COMPLETED) 1,000 mg, oral, Once, On Maira 03/14/24 at 0700, For 1 dose, Pre-Op 0647 (Given - Provider: Seth Gonzalez R.N.) aspirin chewable tablet 81 mg 81 mg, oral, 2 times daily, First dose on Maira 03/14/24 at 2100 2017 (Given - Provider: Dawn Christine R.N.) 0839 (Given - Provider: Lou Dempsey R.N.) ceFAZolin in dextrose (iso osm) IVPB 2 [...] 1613 (New Bag - Provider: Dawn Christine R.N.)2250 (New Bag - Provider: Issa Obando R.N.) ceFAZolin injection 2 g (Ancef) (COMPLETED) 2 g, intravenous, Once, On Maira 03/14/24 at 0700, For 1 dose, Intra-Op, Preoperatively within 1 hour prior to surgical incision If needed, reconstitute vial per package insert instructions. See IVAG for administration guidelines., Drug Monitoring Program: Pharmacist to adjust medication dosing based on indication and drug clearance factors., Indications: Prophylaxis, surgical 07 (Given - Provider: Nathalie Romano R.N.) celecoxib capsule 200 mg (CeleBREX) (COMPLETED) 200 mg, oral, Once, On Maira 03/14/24 at 0700, For 1 dose, Pre-Op 0647 (Given - Provider: Seth Gonzalez R.N.) dexAMETHasone injection 8 mg (Decadron) (COMPLETED) 8 mg, intravenous, Once, On Mon03/15/24 at 0700, For 1 dose 0639 (Given - Provid er: Issa Obando R.N.) ketorolac injection 15 mg (ToradoL) (COMPLETED) 15 [...] factors. 1402 (Given - Provider: Dawn Christine R.N.)2017 (Given - Provider: Dawn Christine R.N.) 0217 [...] Do not give if patient has diarrhea. 2017 (Given - Provider: Dawn Christine R.N.) 0838 [...] mcg 0938 (Given - Provider: Vicki Vasquez R.N.)0947 (Given - Provider: Vicki Vasquez R.N.)0951 (Given [...] Use in adults 18 years and older 2300 (See Alternative - Provider: Dawn Christine R.N.) traMADoL tablet 50 mg (Ultram)(Linked Group 2) 50 mg, oral, Every 6 hours PRN, moderate pain or score 4-6 of 10, Starting on Maira 03/14/24 at 1252, First line therapy, Restriction Criteria (Pharmacy will review and approve if criteria met): Use in adults 18 years and older 1741 (Given - Provider: Dawn Christine R.N.) Linked [...] older documented in this encounter Care Teams Contour Sander Relationship Specialty Start Date End Date Elsewhere, Pcp PCP - General Family Medicine 02/11/21 documented as of this encounter
--- OUTSIDE RECORDS SUMMARY | 2024-06-07 15:16 | XMS_ITS | Encounter Summary ---
Author Organization [facility] Address [address] [place] [address] Care Team Providers Care Founder Chairman And Chief Creative Officer Name Role Phone Elsewhere, Pcp Primary Care Provider Unavailabl e Reason for Referral * Outpatient (Routine) - Closed Specialty Diagnoses / Procedures Referred By Shruthi gracia Referred To Contact Diagnoses Primary Osteoarthritis Hip Left Preoperative Exam Procedures DX Hip And Pelvis Left 2-3 Views Henry Rey P.A.-C., M.S. 200 [place] [address] [facility] Referral ID Status Reason Start Date Expiration Date Visits Re quested Visits Authorized [id number] Closed 11/20/2023 11/19/2024 1 1 Reason for Visit * Outpatient (Routine) - Closed Specialty Diagnoses / Procedures Referred By Shruthi gracia Referred To Contact Diagnoses Primary Osteoarthritis Hip Left Preoperative Exam Procedures DX Hip And Pelvis Left 2-3 Views Henry Rey P.A.-C., M.S. [address] [place] [phone] [facility] Referral ID Status Reason Start Date Expiration Date Visits Re quested Visits Authorized [id number] Closed 11/20/2023 11/19/2024 1 1 Encounter Details Date Type Department Care Team (Latest Contact Info) Description 03/13/2024 7:53 AM CDT - 03/13/2024 11:59 PM CDT Hospital Encounter Department of Radiology, [facility], in [place], [place] [address] [place] [address] Henry Rey P.A.-C., M.S. [address] [place] [address] Primary Osteoarthritis Hip Left; Preoperative Exam Discharge Disposition: Home or Self Care Social History Tobacco Use Types Packs/Day Years Used Date Smoking Tobacco: Never Smokeless Tobacco: Never Alcohol Use Standard Drinks/Week Comments Yes 3 (1 standard drink = 0.6 oz pur e alcohol) [facility] Utilities Answer Date Recorded In the past 12 months has [employer], gas, oil, or water [employer] threatened to shut off services in your [...] often do you attend chur ch or christian services? More than 4 times per year 07/01/2022 Do you belong to any clubs o r organizations such as restoration groups, unions, fraternal or athletic groups, or [...] care, and heating? Not very hard 08/02/2023 [facility] [place] of Occupat ional Health - Occupational Stress [...] your living situation today? I have a [facility] place to live 03/14/2024 Education Answer Date Recorded What is the highest level of school you have completed or the highest degree you have received? 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 06/25/2024 2:30 PM CDT Office Visit Department of Orthopedic Surgery in [address] [phone] Henry Rey P.A.-C., M.S. [address] [place] [phone] 08/20/2024 2:00 PM ACID CLEANER Clinical Support Department of Sports Medicine in [place], [place] [address] [place] [phone] Yan Stewart M.D. [address] [place] [phone] Darius Thompson P.T., D.P.T., [facility] [address] [place] [phone] documented as of this encounter Procedures Procedure Name Priority Date/Time Associated Diagnosis Comments DX HIP AND PELVIS LEFT 2-3 VIEWS RAD - Routine (most inpatients and all outpatients) 03/13/2024 8:16 AM CDT Primary Osteoarthritis Hip Left Preoperative Exam documented in this encounter Results * DX Hip And Pelvis Left 2-3 [...] joints. Instrumented lumbar fusion. Henry Rey P.A.-C. M.S. IMG DIAGNO STIC IMAGING PROCEDURES documented in this encounter Visit Diagnoses Diagnosis Primary Osteoarthritis Hip Left Preoperative Exam documented in this encounter Care Teams Founder Chairman And Chief Creative Officer Relationship Specialty Start Date End Date Elsewhere, Pcp PCP - General Family Medicine 02/11/21 documented as of this encounter
--- OUTSIDE RECORDS SUMMARY | 2024-06-07 15:17 | XMS_ITS | Continuity of Care Document ---
Author Organization [facility] Address [address] [place] [address] Phone Care Team Providers Care Video Game Programmer Name Role Phone Jeevan Avelar MD Unavailable Unavailable Allergies, Adverse Reactions, Alerts Substance Reaction Status Criticality Sulfa (Sulfonamide Antibiotics) Hives Active No Information Medications Medication Instructions Dosage Effective Dates (start - stop) Status Comments VITAMIN D3 (unknown strength) Not Available - Active CALCIUM (unknown strength) Not Available - Active ADVIL [...] Office/Outpa tient Visit,Est, Mod [facility], [address] [place] [address], [id number], [place] [phone] [facility] Other spondylosis with myelopathy, cervical regionSpinal stenosis, lumbar region with neurogenic claudicationO ther spondylosis, lumbar regionArthrod esis status 0 Rosio Jeevan. [facility], [address] [place] [address], [address], [id number], . tel:[phone] Office/Outpa tient Visit,Est, Mod [facility], [address] [place] [address], [id number], [place] tel:[phone] [facility] Spinal stenosis, lumbar region with neurogenic claudicationA rthrodesis statusOther spondylosis with myelopathy, cervical regionOther spondylosis, lumbar region 201 9 Aakashra Chew. [facility], [address] [place] [address], [address] [place] [address], [id number], . tel:[phone] Office/Outpa tient Visit,Est, Mod [facility], [address] [place] [address], [id number], tel:[phone] [facility] Arthrodesis statusOther spondylosis, lumbar regionOther spondylosis with myelopathy, cervical regionSpinal stenosis, lumbar region with neurogenic claudication 9 Aakashra Chew. [facility], [address], [address], [place], [place], [id number], . tel:[phone] Office/Outpa tient Visit,Est, Mod [facility], [address], [place], [place], [id number], [place] tel: [phone] [facility] Arthrodesis statusSpinal stenosis, lumbar region with neurogenic claudicationO ther spondylosis, lumbar regionOther spondylosis with myelopathy, cervical region 9 Pelkola Kimberlyn. [facility], [address] [place] [address] Suite [facility], [place], [place], [id number], . tel:[phone] Office/Outpa tient Visit,Est, Mod [facility], [address], [place], [place], [id number], [place] tel: [phone] [facility] Spinal stenosis, lumbar region with neurogenic claudicationA rthrodesis status Pelkola Kimberlyn. [facility], [address] [place] [address] [address], [place], [place], [id number], . tel:[phone] Office/Outpa tient Visit,Est, Mod [facility], [address], [place], [place], [id number], [place] tel: [phone] [facility] Spinal stenosis, lumbar region with neurogenic claudicationA rthrodesis status 8 Pelkola Kimberlyn. [facility], [address] [place] [address] [address], [place], [place], [id number], . tel:[phone] Office/Outpa tient Visit,Est, Mod [facility], [address], [place], [place], [id number], [place] tel:[phone] [facility] Spondylolisth esis, lumbar regionSpinal stenosis, lumbar region with neurogenic claudication 7 Pelkola Kimberlyn. [facility], [address], [place], [place], [id number], [place]. tel:[phone] [facility], [address], [place], [place], [id number], [place] tel:[phone] [facility] Spondylolisth esis, lumbar regionSpinal stenosis, lumbar region Sep- 7 Pelkola Kimberlyn. [facility], [address], [place], [place], [id number], [place]. tel:[phone] [facility], [address], [place], [place], [id number], [place] tel:[phone] [facility] No Information 7 Rosio Chew. [facility] [place], [address] [place] [address], [address], [place], [place], [id number], [place]. tel:[phone] Office/Outpa tient Visit,Est, Mod [facility], [address], [place], [place], [id number], [place] tel:[phone] [facility] Other spondylosis, lumbar regionRadicul opathy, lumbar region Nov- 7 Rosio Chwe. [facility], [address], [address], [place], [place], [id number], [place]. tel:[phone] Referring Provider: Jeevan Avelar, [facility] [address] [place] [address], [address], [place], [address] . tel:[phone] Office/Outpa tient Visit,New, Mod [facility], [address], [place], [place], [id number], [place] tel:[phone] [facility] Other spondylosis, lumbar region Nov- 7 No Information Office/outpa tient visit,est, mod Z [facility] [place], [address] [place] [address] [address], [place], [address], [place] tel:[phone] [facility] No Information 1 Rosio Chew. [facility], [address], [address], [place], [place], [id number], . tel:[phone] Referring Provider: Jeevan Avelar, [facility] [address], [address], [place], [address] . tel:[phone] Office/outpa tient visit,est, mod Z [facility] [place], [address], [place], [place], [facility], tel:[phone] [facility] No Information 201 0 Rosio Chew. [facility], [address] [place] [address], [address], [place], [place], [id number], . tel:[phone] Referring Provider: Jeevan Avelar, [facility] [place] [address], [address], [place], [address] . tel:[phone] Family History Family Member Type Diagnosis Age At Onset No Information Payers Payer name Insurance type Covered alliance party ID Marie hale(s) [facility] [id number] [facility] [id number] Social History Type Description Quantity Date Captured [...]
--- OUTSIDE RECORDS SUMMARY | 2024-06-07 15:17 | XMS_ITS | Clinical Summary ---
Author Organization [employer] [facility] Address [place], [place] [address] Care Team Providers Care Steamship Agent Name Role Phone Pcp, No Primary Care Provider Unavailabl e Allergies Active Allergy Reactions Criticality Noted Date Comments Sulfa (Sulfonamide Antibiotics) Hives 01/17 Medications Medication Sig Dispensed Refills Start Date End Date Status acetaminophen (TYLENOL EXTRA STRGTH) 500 mg tablet Take 1,000 mg by mouth every 6 hours if needed. Max acetaminophen dose: 4000mg in 24 hrs. Active aspirin (ECOTRIN) 81 mg enteric coated tablet 03/23/2022 Active pantoprazole (PROTONIX) 40 mg delayed-release tablet 03/23/2022 Active Active Problems Problem Noted Date Diagnosed Date COVID-19 virus infection 04/25/2022 Hypotension 04/19/2017 Anemia 04/19/2017 Screen for colon cancer 04/13/2012 Overview (04/13/2012): Colonoscopy 03/2012 normal repeat in 10 years Rosacea 03/07/2012 Eczema 07/07/2011 Lumbar facet arthropathy 05/18/2011 Degeneration of lumbar or lumbosacral interverte bral disc 05/18/2011 Adjustment disorder with mixed anxiety and depre ssed mood 01/18/2010 Immunizations Name Administration Dates Next Due AMB Influenza, IIV3 (Age >=3 years)(Flu Clinic Only) 09/08/2010,10/07/2009,09/03/2008 Influenza, IIV3 (Age >=3 years) 07/05/2012,07/07,08/22/2007 Influenza, IIV4 06/14/2018,07/19/2017 Td, Preservative Free (age >= 7 Years) 5 Tdap 04/06/2017 Family History Medical History Relation Name Comments Glaucoma Father Hyperlipidemia Father Macular degeneration Father Osteoporosis Maternal Grandmother Cancer Mother lung, non smoke r Thyroid Disease Mother Cancer-breast Other Paternal Cousin Cancer-breast Paternal Aunt post menopaus al Macular degeneration Paternal Aunt Cancer-ovarian No Family History Relation Name Status Comments Father Alive Maternal Grandmother Mother Other Paternal Cousin Alive Paternal Aunt Social History Tobacco Use Types Packs/Day Years Used Date Smoking Tobacco: Never Smokeless Tobacco: Never Tobacco Cessation:Counseling Given: Yes Alcohol Use Standard Drinks/Week Comments Yes 7 (1 standard drink = 0.6 oz pur e alcohol) one glass of wine per day Social Connections Answer Date Recorded Frequency of Communication with Friends and Fami ly Not on file 09/18/2021 Financial Resource Strain Answer Date R ecorded Difficulty of Paying Living Expenses Not on file 09/18/2021 Difficulty of Paying Living Expenses Not on file 09/18/2021 Sex and Gender Information Value Date Recorded Sex Assigned at Not on file Gender Identity Not on file Sexual Orientation Not on file Obstetrics History Para Term AB IAB SAB Ectopic Multiple Livin g Live Births 0 2 Last Filed Vital Signs Vital Sign Reading Time Taken Comments Blood Pressure 124/79 03/05/2021 11:36 AM CDT Pulse 75 03/05/2021 11:36 AM CDT Temperature 36.9 ??C (98.5 ??F) 03/05/2021 11:36 AM C DT Respiratory Rate 16 04/21/2017 8:00 AM CDT Oxygen Saturation 96% 02/09/2021 11:20 AM CDT Inhaled Oxygen Concentration - - Weight 53.5 kg (118 lb) 03/05/2021 11:36 AM CDT Height 165.1 cm (5' 5) 03/05/2021 11:36 AM CDT Body Mass Index 19.64 03/05/2021 11:36 AM CDT Plan of Treatment Health Maintenance Due Date Last Done Comments Hepatitis C screening for ag e 18-79 1975 Zoster (shingles) series for age 50+ (1 of 2) 2007 Depression screening for age 12+ 11/15/2018 11/15/19 18, 10/06/2016 BMI (ht and wt on same day) for age 18+ 03/05/2022 03/05/2021, 06/14/2018, 11/15/2017, Additional history exists Colonoscopy through age 75 04/13/2022 04/13/2012, DEXA/DXA scan for age 65+ 2022 07/05/2018, Pneumococcal series for age 65+ (1 of 1 - PCV) 2022 Mammogram for age 45-75 05/09/2023 05/09/20, 04/27/2021, 04/15/2020, Additional history exists Lipids for age 45-75 06/14/2023 06/14/2018, 03/07/20 12 COVID-19 vaccine series ( season) 2024 12/18/2021, 07/15/2021, 11/25/2020, Additional history exists Influenza for age 65+ 05/19/2024 06/14/2018 , 07/19/2017, 07/05/2012, Additional history exists Tetanus booster 04/06/2027 04/06/2017, 05/05/2005 Tdap Completed 04/06/2017 Medical Devices Implanted Type Area Value Analyst Device Identifier Shelf Expiration Date Model / Serial / Lot Keegan Lmbr 60x5.5mm Tsrh 3d Cvd Titnm - [id number] Implanted:Qty: 2 on 04/18/2017 by Jeevan Avelar MD at [facility] Spine Implants N/A: Spine Medtronic Spine/Ortho [id number]# / / [id number] one 1-4mm 30cc Medtronic Chips Canclls Freeze Dried Implanted:Qty: 1 on 04/18/2017 by Jeevan Avelar MD at [facility] Explanted:at [facility] (Quantity not on file) N/A: Spine Medtronic Spine/Ortho 12/21/2021 [id number]# / [id number] / Spacer Lmbr 9x30mm [place] Vbtlif Peek - [id number] Implanted:Qty: 1 on 04/18/2017 by Jeevan Avelar MD at [facility] N/A: Spine Medtronic Spine/Ortho 11/14/2024 [id number]# / / [id number] Cnnctr Lmbr Sm 5.5mm Tsrh 3dx Titnm - [id number] Implanted:Qty: 2 on 04/18/2017 by Jeevan Avelar MD at [facility] N/A: Spine Medtronic Spine/Ortho [id number]# / / Screw Lmbr Post 6.5x45mm Tsrh 3dx Og Thin Va - [id number] Implanted:Qty: 2 on 04/18/2017 by Jeevan Avelar MD at [facility] N/A: Spine Medtronic Spine/Ortho [id number]# / / Cnnctr Lmbr 6.35x5.5mm Keegan Connect Variable Titnm - [id number] Implanted:Qty: 2 on 04/18/2017 by Jeevan Avelar MD at [facility] N/A: Spine Medtronic Spine/Ortho [id number] # / / Set Screw Lmbr Std Keegan Connection Titnm - [id number] Implanted:Qty: 4 on 04/18/2017 by Jeevan Avelar MD at [facility] N/A: Spine Medtronic Spine/Ortho [id number] # / / Procedures Procedure Name Priority Date/Time Associated Diagnosis Comments XR MAMMO YASIR BILAT SCREEN Routine 05/09/2022 1:32 PM CDT Visit for screening mammogram XR DXA BONE DENSITY 2 SITES AXIAL Routine 07/05/2018 9:25 AM CDT Osteoporosis screening LIPID PANEL W REFLEX MEASURED LDL Routine 06/14/2018 6:07 PM CDT Lipid screening from Last 3 Months or Most Recently Relevant to Health Maintenance Results * XR MAMMO YASIR BILAT SCREEN (05/09/2022 1:32 PM CDT) Anatomical Region Laterality Modality BREASTS, Breast Left, Breast Right Bilateral Mammography Impressions 05/10/2022 2:57 PM CDT ??There is no radiographic evidence for malignancy. ??Recommend annual mammograms. MAMMOGRAM ASSESSMENT: ??ACR 1 Negative PATIENTS: You will also receive a letter with your examination results in an easy to read format. ??If you have questions about your results, please contact your referring provider. Narrative 05/10/2022 2:57 PM CDT For Patients: As a result of the Cures Act, medical imaging exams and procedure reports are released immediately into your electronic medical record. You may view this report before your referring provider. If you have questions, please contact your health care provider. XR MAMMO YASIR BILAT SCREEN [[id number]] CLINICAL HISTORY: ??This is an asymptomatic 66 y.o. patient. INDICATION FOR EXAM: Mammogram Screening. TECHNIQUE: CC & MLO views were obtained. ??This study was evaluated with the assistance of Computer-Aided Detection. Breast Tomosynthesis was used in interpretation. COMPARISON FILM: Yes 04/27/21 [facility] [email or web address] 04/15/22 [facility] FINDINGS: ??The breasts are extremely dense, which lowers the sensitivity of mammography. There are no dominant masses, suspicious micro calcifications or areas of architectural distortion. Huong Zepeda PA MAMMO * (ABNORMAL) XR DXA BONE DENSITY 2 SITES AXIAL (07/05/2018 9:25 AM CDT) Anatomical Region Laterality Modality Spine, HIPS, HIPL, HIPR Other Narrative 07/09/2018 2:26 PM CDT Please see scanned document for results of this study. Danyell Otoole NP DEXA * LIPID PANEL W REFLEX MEASURED LDL (06/14/2018 6:07 PM CDT) CHOLESTEROL,TOTAL 189 100 - 199 mg/dL 06/15/2018 2:24 PM CDT [facility] TRIGLYCERIDES 44 <150 mg/dL 06/15/2018 2:24 PM CDT [facility] HDL CHOLESTEROL 78 >40 mg/dL 8 2:24 PM CDT [facility] NON-HDL CHOLESTEROL 111 <145 mg/dl 06/15/2018 2:24 PM CDT [facility] CHOL/HDL RATIO 2.42 <4.50 06/15/2018 2:24 PM CDT [facility] LDL CHOLESTEROL 102 <=130 mg/dL 06/15/2018 2:24 PM CDT [facility] PROVIDER ORDERED STATUS RANDOM 06/15/2018 2:24 PM CDT [facility] Blood BLOOD SPECIMEN / Unknown Venipuncture / Unknown 06/14/2018 6:07 PM CDT 06/14/2018 6:08 PM CDT Danyell Otoole NP CHEMISTRY [facility] [address] [place] [address], from Last 3 Months or Most Recently Relevant to Health Maintenance Advance Directives Documents on File Type Date Recorded Patient Planning And Analysis Manager Expl anation Healthcare Directive 04/18/2017 12:00 AM Healthcare Directive 03/22/2017 11:00 AM GERTRUDIS HERNANDEZ, 03/16/17 * Full Code (Latest Code Status on File) Date Activated Date Inactivated Comments 04/18/2017 9:52 PM 04/21/2017 5:03 PM * Full Code Date Activated Date Inactivated Comments 04/18/2017 12:06 PM 04/18/2017 9:51 PM Question Answer Comments Code Status Discussion: Discussed Care Teams Steamship Agent Relationship Specialty Start Date End Date Pcp, No . PCP - General 04/12/22
--- OUTSIDE RECORDS SUMMARY | 2024-06-07 15:17 | XMS_ITS | Encounter Summary ---
Author Organization [facility] Address [address] [place] [address] Care Team Providers Care Flange Turner Name Role Phone Elsewhere, Pcp Primary Care Provider Unavailabl e Reason for Visit * Reason Comments Patient Education Encounter Details Date Type Department Care Team (Latest Contact Info) Description 03/04/2024 1:00 PM CDT Telemedicine Department of Patient Education in [place], [place] [address] [place] [address] Henry Rey P.A.-C., M.S. [address] [place] [address] Primary Osteoarthritis Hip Left; Preoperative Exam Social History Tobacco Use Types Packs/Day Years Used Date Smoking Tobacco: Never Smokeless Tobacco: Never Alcohol Use Standard Drinks/Week Comments Yes 5 (1 standard drink = 0.6 oz pur [...] How often do you attend chur or congregational services? More than 4 times per year 07/01/2022 Do you belong to any clubs o r organizations such as denominational groups, unions, fraternal or athletic groups, or [...] Not very hard 08/02/2023 [facility] [place] of Occupat ional Health - Occupational Stress [...] money to buy more. Never true 08/02/20 Within the past 12 months, t he [...] your living situation today? I have a [facility] place to live 08/02/2023 Education Answer Date Recorded What is the highest level of school you have completed or the highest degree you have received? 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 06/25/2024 2:30 PM CDT Office Visit Department of Orthopedic Surgery in [place], [place] [address] [place] [phone] Henry Rey P.A.-C., M.S. [address] [place] [phone] 08/20/2024 2:00 PM WESTERN TACK ASSEMBLY LINE WORKER Clinical Support Department of Sports Medicine in [place], [place] [address] [place] [phone] Yan Stewart M.D. [address] [place] [phone] Darius Thompson P.T., D.P.T., [facility] [address] [place] [phone] documented as of this encounter Visit Diagnoses Diagnosis Primary Osteoarthritis Hip Left Preoperative Exam documented in this encounter Care Teams Flange Turner Relationship Specialty Start Date End Date Elsewhere, Pcp PCP - General Family Medicine 02/11/21 documented as of this encounter
--- OUTSIDE RECORDS SUMMARY | 2024-06-07 15:17 | XMS_ITS | Encounter Summary ---
Author Organization [facility] Address [address] [place] [phone] Care Team Providers Care Him Assistant Name Role Phone Elsewhere, Pcp Primary Care Provider Unavailabl e Reason for Referral * MRI/CAT/PET Scan (Routine) - Closed Specialty Diagnoses / Procedures Referred By Shruthi gracia Referred To Contact Radiology Diagnoses Primary Osteoarthritis Hip Left Preoperative Exam Procedures CT Hip Left without IV Contrast Henry Rey P.A.-C., M.S. [address] [place] [phone] [facility] Referral ID Status Reason Start Date Expiration Date Visits Re quested Visits Authorized [id number] Closed 11/20/2023 11/19/2024 1 1 Reason for Visit * MRI/CAT/PET Scan (Routine) - Closed Specialty Diagnoses / Procedures Referred By Shruthi gracia Referred To Contact Radiology Diagnoses Primary Osteoarthritis Hip Left Preoperative Exam Procedures CT Hip Left without IV Contrast Henry Rey P.A.-C., M.S. [address] [place] [phone] [facility] Referral ID Status Reason Start Date Expiration Date Visits Re quested Visits Authorized [id number] Closed 11/20/2023 11/19/2024 1 1 Encounter Details Date Type Department Care Team (Latest Contact Info) Description 03/12/2024 1:56 PM CDT - 03/12/2024 11:59 PM CDT Hospital Encounter Department of Radiology, [facility] in [place], [place] 200 [place] [address] Henry Rey P.A.-C., M.S. 200 [place] [phone] Primary Osteoarthritis Hip Left; Preoperative Exam Discharge [...] week 07/01/2022 How often do you attend [facility] or jewish services? More than 4 times per year [...] care, and heating? Not very hard 08/02/2023 [facility] - Occupational [...] your living situation today? I have a [facility] place to live 08/02/2023 Education Answer Date Recorded What is the highest level of school you have completed or the highest degree you have received? 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 06/25/2024 2:30 PM CDT Office Visit Department of Orthopedic Surgery in [address] [phone] Henry Rey P.A.-C., M.S. 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 [address] [place] [phone] Darius Thompson P.T., RoselineP.Melvin., [facility] [address] [place] [phone] documented as of this encounter Procedures Procedure Name Priority Date/Time Associated Diagnosis Comments CT HIP LEFT WITHOUT IV CONTRAST RAD - Routine (most inpatients and all outpatients) 03/12/2024 3:30 PM CDT Primary Osteoarthritis Hip Left Preoperative Exam documented in this encounter Results * CT Hip Left without IV Contrast [...] for presurgical planning purposes according to the [facility] hipprotocol. Advanced hypertrophic left hip osteoarthritis with [...] Rey P.A.-C., M.S. IMG CT PRO CEDURES documented in this encounter Visit Diagnoses Diagnosis Primary Osteoarthritis Hip Left Preoperative Exam documented in this encounter Care Teams Him Assistant Relationship Specialty Start Date End Date Elsewhere, Pcp PCP - General Family Medicine 02/11/21 documented as of this encounter
--- OUTSIDE RECORDS SUMMARY | 2024-06-07 15:17 | XMS_ITS | Encounter Summary ---
Author Organization [facility] Address [address] [place] [phone] Care Team Providers Care Material Handler 1St Shift Name Role Phone Elsewhere, Pcp Primary Care Provider Unavailabl e Reason for Visit * Reason Onset Date Comments Pre-visit Intake 03/07/2024 Encounter Details Date Type Department Care Team (Latest Contact Info) Description 03/07/2024 7:30 AM CDT Clinical Communication Virtual Review in [place], [place] 200 [place] [phone] Pre-visit Intake Social History Tobacco Use Types Packs/Day Years [...] How often do you attend chur or congregation services? More than 4 times per year 07/01/2022 Do you belong to any clubs o r organizations such as adventist groups, unions, fraternal or athletic groups, or [...] care, and heating? Not very hard 08/02/2023 [facility] - Occupational [...] your living situation today? [facility] a [facility] live 08/02/2023 Education Answer Date Recorded What is the highest level of school you have completed or the highest degree you have received? 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 06/25/2024 2:30 PM CDT Office Visit Department of Orthopedic Surgery in [place], [place] [address] [place] [phone] Henry Rey P.A.-C., M.S. [address] [place] [phone] 08/20/2024 2:00 PM LITHOGRAPHIC ETCHER Clinical Support Department of Sports Medicine in [place], [place] [address] [place] [phone] Yan Stewart M.D. [address] [place] [phone] Darius Thompson P.T., D.P.T., [facility] [address] [place] [phone] documented as of this encounter Visit Diagnoses Not on filedocumented in this encounter Care Teams Material Handler 1St Shift Relationship Specialty Start Date End Date Elsewhere, Pcp PCP - General Family Medicine 02/11/21 documented as of this encounter
--- NOTE | 2024-06-07 15:20 | CRLHL7_ITS ---
For Patients: As a result of the Century Cures Act, medical imaging exams and procedure reports are released immediately into your electronic medical record. You may view this report before your referring provider. If you have questions, please contact your health care provider. BILATERAL SCREENING MAMMOGRAM WITH COMPUTER-AIDED DETECTION AND TOMOSYNTHESIS TECHNIQUE: CC and MLO views were obtained. These mammographic images have been obtained using full-field digital technique. These mammographic images were interpreted with the benefit of computer-aided detection. Breast Tomosynthesis was used in this interpretation. COMPARISON FILM: 06/02/23, 05/09/22, 04/27/21. FINDINGS: The breasts are extremely dense, which lowers the sensitivity of mammography IMPRESSION: There is no radiographic evidence for malignancy. ASSESSMENT: BI-RADS Category 1: Negative RECOMMENDATION: Routine screening mammogram in 1 year. A lay language report of this examination will be provided to the patient. Arnaldo Martinez M.D. Diagnostic Radiologist [email or web address] ZOILA/Dictated by: Arnaldo Martinez MD @ 06/18/2024 11:10:00 AM (Electronically Signed)
== END 2024-06-07 15:13 | disposition home or self-care (01) ==
LOC: MAMMO 15:12
PROVIDERS: PCP Internal Medicine; Visit Provider Internal Medicine
DX: Z12.31 Encounter for screening mammogram for malignant neoplasm of breast (principal); R92.343 Mammographic extreme density, bilateral breasts
CPT/HCPCS: 77063; 77067

== ENCOUNTER 2024-06-28 07:35 | Outpatient (CLI) | payer BC, SELFPAY ==
--- OUTSIDE RECORDS SUMMARY | 2024-06-28 13:33 | XMS_ITS | Clinical Summary ---
Author Organization [facility] Address [address] [place] [address] Care Team Providers Care Electrical Continuity Inspector Name Role Phone Elsewhere, Pcp Primary Care Provider Unavailabl e Source Comments Patient records contain information from all sites at [facility]. For routine questions regarding patient records, call [phone] during business hours, M-F 8:00 AM - 5:00 PM Central Time. Record requests for emergency care only can be directed to [phone] at any time.[facility] Allergies Active Allergy Reactions Criticality Noted Date Comments Sulfa (Sulfonamide Antibiotics) Hives only, no other systemic symptoms High 03/03/2005 Medications Medication Sig Dispensed Refills Start Date End Date Status calcium carbonate-vitami n D3 1,250 mg (500 mg calcium)-5 mcg (200 Unit) per tablet Take 2 tablets by mouth daily with breakfast. Active cyanocobalamin (VITAMIN B12) 1,000 mcg tablet Take 1,000 mcg by mouth daily. Active DAILY MULTI-VITAMIN ORAL Take 1 tablet by mouth daily. 12/18/2023 Active B complex-vitamins (Vitamins B Complex) tablet Take 1 tablet by mouth daily. 12/08/2022 Active MAGNESIUM CITRATE ORAL Take 250 mg by mouth 2 (two) times a day. 05/17/2024 Active acetaminophen (TylenoL) 325 mg tablet Take 325 mg by mouth every 4 (four) hours as needed for pain. Active acetaminophen (TylenoL) 500 mg tablet Take 2 tablets (1,000 mg total) by mouth every 6 (six) hours for 28 days. 224 tablet 03/14/2024 Discontinue d(Therapy completed) celecoxib (CeleBREX) 200 mg capsule Take 1 capsule (200 mg total) by mouth daily. 30 capsule 03/14/2024 Discontinue d(Therapy completed) aspirin 81 mg chewable tablet Chew 1 tablet (81 mg total) 2 (two) times a day with meals. Recommended to minimize risk of blood clot. Once completed, resume the usual dose of aspirin your primary provider may recommend. 84 tablet 03/14/2024 Discontinue d(Therapy completed) oxyCODONE (Roxicodone) 5 mg immediate release tabletIndication s:Acute Pain Exception Take 1 tablet (5 mg total) by mouth every 4 (four) hours as needed for severe pain or score 7-10 of 10 Indication: Acute Pain Exception. 25 tablet 03/14/2024 Discontinue d(Therapy completed) traMADoL (Ultram) 50 mg tabletIndication s:Acute Pain Exception Take 1-2 tablets (50-100 mg total) by mouth every 8 (eight) hours as needed for pain Indications: Acute Pain Exception. Take 50 mg for pain 3-4. Take 100 mg for pain 5-6 40 tablet 03/14/2024 Discontinue d(Therapy completed) clobetasoL (Temovate) 0.05 % cream Apply 1 Application topically 2 (two) times a day. Apply to area as instructed twice daily. 30 g 1 03/19/2024 Discontinue d(Therapy completed) LORazepam (Ativan) 1 mg tablet Take 1 tablet (1 mg total) by mouth once for 1 dose. Take one hour prior to MRI 1 tablet 04/04/2024 Discontinue d(Therapy completed) meloxicam (Mobic) 7.5 mg tablet Take 1 tablet (7.5 mg total) by mouth 2 (two) times a day for 14 days. Take 1 tablet 2 times a day for 2 weeks. 28 tablet 3 04/29/2024 4 Discontinue d(Therapy completed) Active Problems Problem Noted Date Diagnosed Date Primary Osteoarthritis Hip Left 11/20/2023 Pain Shoulder Left 09/25/2023 Dystrophic Toenail 11/04/2022 Onycholysis 11/04/2022 Callus [place] Foot 11/04/2022 Pain Foot Right 11/04/2022 Neuropathy Peripheral 11/04/2022 Pes Planus Right 11/04/2022 Hammer Toe Acquired Left 11/04/2022 Onychomycosis 11/04/2022 Pain Hip Right 03/24/2022 Arthritis Spine 03/14/2022 Primary Osteoarthritis Hip Right 10/06/2021 Overview (10/06/2021): Added automatically from request for surgery [id number] Fusion Cervical Spine Status Post 12/04/2020 Overview (12/04/2020): Added automatically from request for surgery [id number] Tendinitis Bicipital Right 03/11/2019 Sprain Subscapularis Muscle Initial Right 2018 Resolved Problems Problem Noted Date Diagnosed Date Resolved Date Fusion Cervical Spine Status Post 03/14/2022 03/14/2022 Radiculopathy Cervical 03/11/201903/14 Encounters Date Type Department Care Team Description 06/25/2024 3:15 PM CDT - 06/25/2024 11:59 PM CDT Hospital Encounter Department of Radiology, [place], [place] [address] [place] [phone] Henry Rey P.A.-C., M.S. Pain Knee Left; Arthroplasty Total Knee Replacement Status Post Right Discharge Disposition: Home or Self Care 06/25/2024 3:15 PM CDT - 06/25/2024 11:59 PM CDT Hospital Encounter Department of Radiology, [facility], [place], [place] [address] [place] [address] Henry Rey P.A.-C., M.S. 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 Arthroplasty Total Hip Replacement Status Post Left (Primary Dx); Pain Knee Left; Arthroplasty Total Knee Replacement Status Post Right 06/25/2024 12:55 PM CDT - 06/25/2024 3:14 PM CDT Hospital Encounter Department of Radiology, [place], [place] [address] [place] [phone] Peace Key M.D. Arthroplasty Total Hip Replacement Status Post Left Discharge Disposition: Home or Self Care 06/20/2024 3:00 PM CDT Clinical Communication Virtual Review in [address] [phone] Pre-visit Intake 05/29/2024 1:00 PM CDT Clinical Support Department of Sports Medicine in [address] [phone] Yan Stewart M.D. Lewis, Jessica L, P.T., D.P.T. Rotator Cuff Disorder Left (Primary Dx) 04/29/2024 Orders Only Department of Orthopedic Surgery in [address] [phone] Mao Cohen P.A.-C. 04/19/2024 9:00 AM CDT Office Visit Department of Orthopedic Surgery in [address] [phone] Buddy Holland M.D. Fusion Cervical Spine Status Post (Primary Dx) 04/18/2024 Orders Only Department of Orthopedic Surgery in [address] [phone] Buddy Holland M.D. 04/15/2024 12:04 PM CDT - 04/15/2024 11:59 PM CDT [facility] [address] [phone] Buddy Holland M.D. Fusion Cervical Spine Status Post; Stenosis Spinal Cervical Discharge Disposition: Home or Self Care 04/15/2024 10:44 AM CDT - 04/15/2024 12:03 PM CDT Hospital Encounter Department of Radiology, [facility], in [place], [place] [address] [place] [address] Buddy Holland M.D. Fusion Cervical Spine Status Post; Stenosis Spinal Cervical Discharge Disposition: Home or Self Care 04/12/2024 Clinical Communication Department of Orthopedic Surgery in [place], [place] [address] [place] [address] Laura Alarcon P.A.-C., M.S. from Last 3 Months Family History Medical [...] Caldwell Mother's Sister Reny Durham Sister 1 Marily De Guzman Sister 2 Beth Bonilla Social History Tobacco Use Types Packs/Day Years Used Date Smoking Tobacco: Never Smokeless Tobacco: Never Tobacco Cessation:Counseling Given: Not Answered Alcohol Use Standard Drinks/Week Comments Yes 3 (1 standard drink = 0.6 oz pur e alcohol) [facility] Utilities Answer Date Recorded In the past 12 months has e [employer], gas, oil, or water [employer] threatened to shut off services in your [...] How often do you attend chur or quaker services? More than 4 times per year 07/01/2022 Do you belong to any clubs o r organizations such as sikh groups, unions, fraternal or athletic groups, or [...] care, and heating? Not very hard 08/02/2023 [facility] [place] of Occupat ional Health - Occupational Stress [...] living situation today? I have a [facility] place to live 03/14/2024 Education Answer Date Recorded What is the highest level of school you have completed or the highest degree you have received? Bachelor's degree (e.g., BA, AB, BS) 03/08/2019 Sex and Gender Information Value Date Recorded Sex Assigned at Female 03/31/2018 3:46 PM CDT Gender Identity Female 03/31/2018 3:46 PM CDT Sexual Orientation Straight 11/09/2020 5: 08 PM CHECKER PRODUCT DESIGN Last Filed Vital Signs Vital Sign Reading [...] Care Team (Late st Contact Info) Description 08/20/2024 2:00 PM CHECKER PRODUCT DESIGN Clinical Support Department of Sports Medicine in [place], [place] [address] [place] [phone] Yan Stewart M.D. [address] [place] [phone] Darius Thompson P.T., D.P.T., S[facility]-ABPTS [address] [place] [phone] Health Maintenance Due Date Last Done Comments CT Colonography 1957 Cologuard 1957 Colonoscopy 1957 Colorectal Cancer Screening 1957 FIT 1957 Mammogram 05/09/2023 05/09/2022, 04/19, 04/27/2021 Depression Screening (Annual PHQ-2) 09/18/2023 COVID-19 Vaccine (2023-2 5 season) 2024 07/06/2023, 07/29/2022, 12/18/2021, Additional history exists Influenza Vaccine (#1) 2024 , 07/29/2022, 06/12/2021, Additional history exists Fasting Glucose for Diabetes Screening 03/15/2027 03/15/2024, 03/13/2024, 11/08/2022, Additional history exists DTaP,Tdap,and Td Vaccines (2 - Td or Tdap) 04/06/2027 04/06/2017, 05/05/2005 Zoster Vaccines Completed 09/16/2021, 07/07/2021 Pneumococcal vaccine (65+ years) Completed 05/16/20 Fall Risk Screen (Annual) Completed 03/14/2024 Hepatitis C Screening Completed 03/14/2024, 022 Medical Devices Implanted Type Area C Winforms Developer Device Identifier Shelf Expiration Date Model / Serial / Lot Homero Dbm Grf Pst 5 - [id number] - [id number] Implanted:Qty : 1 on 02/16/2021 by Buddy Holland M.D. at [facility] Bone or Tissue Anterior: Spine Cervical Medtronic 12/31/2022 [id number] / [id number] / Hardware E.G. Pins/Screws/R ods Hardware e.g. pins/screws /rods N/A: Back Spn Cg Bng Cerv Custodial 20 - [id number] Implanted:Qty : 1 on 02/16/2021 by Buddy Holland M.D. at [facility] Hardware e.g. pins/screws /rods Anterior: Spine Cervical Depuy Synthes [id number] / / Spn Plt Dudley L3 48 - [id number] Implanted:Qty : 1 on 02/16/2021 by Buddy Holland M.D. at [facility] Hardware e.g. pins/screws /rods Anterior: Spine Cervical Depuy Synthes [id number] / / Spn Scrw Dudley Sfdr Thrd 4x16 - [id number] Implanted:Qty : 6 on 02/16/2021 by Buddy Holland M.D. at [facility] Hardware e.g. pins/screws /rods Anterior: Spine Cervical Depuy Synthes [id number] / / Anch Sut Swv 4.75x19.1 - [id number] Implanted:Qty : 1 on 12/05/2023 by Yan Stewart M.D. at [facility] Hardware e.g. pins/screws /rods Left: Shoulder Arthrex [id number] 09/17/2027 [id number] / / [id number] Shll Acet Trd Ii Mhl 50d - [id number] Implanted:Qty : 1 on 03/24/2022 at [facility] Hip Implant Right: Hip Armington 11/24/2026 709-04-50D / / [id number] Scrw Hex 6.5x20 - [id number] Implanted:Qty : 1 on 03/24/2022 at [facility] Hip Implant Right: Hip Ruben 02/09/2027 7953-0016 / / [id number] Scrw Hex 6.5x15 - [id number] Implanted:Qty : 1 on 03/24/2022 at [facility] Hip Implant Right: Hip Ruben [id number] 08/08/2024 0677-8795 / / 36VD Lnr X3 Szd 36 - [id number] Implanted:Qty : 1 on 03/24/2022 at [facility] Hip Implant Right: Hip Ruben 02/14/2027 723-00-36D / / [id number] Hip Stm Ins Ofst Sz4 32.5x103 - [id number] Implanted:Qty : 1 on 03/24/2022 at [facility] Hip Implant Right: Hip Ruben 10/06/2026 0555-4320 / / [id number] Fem Hd Blx +5x36 - [id number] Implanted:Qty : 1 on 03/24/2022 at [facility] Hip Implant Right: Hip Ruben 12/06/2026 6570-0-236 / / [id number] Fem Hd Blx V40 +0x36 - [id number] Implanted:Qty : 1 on 03/14/2024 by Chris Zhang M.D. at [facility] Hip Implant Left: Hip [place] 08/20/2028 6570-0-136 / / [id number] Shll Acet Trd Ii Mhl 50d - [id number] Implanted:Qty : 1 on 03/14/2024 by Chris Zhang M.D. at [facility] Hip Implant Left: Hip Ruben 10/10/2028 709-04-50D / / [id number] Hip Stm Ins Ofst Sz3 32.5x101 - [id number] Implanted:Qty : 1 on 03/14/2024 by Chris Zhang M.D. at [facility] Hip Implant Left: Hip [place] 07/26/2028 1332-5677 / / [id number] Scrw Hex 6.5x15 - [id number] Implanted:Qty : 1 on 03/14/2024 by Chris Zhang M.D. at [facility] Hip Implant Left: Hip Ruben 11/08/2028 4205-3758 / / [id number] Scrw Hex 6.5x45 - [id number] Implanted:Qty : 1 on 03/14/2024 by Chris Zhang M.D. at [facility] Hip Implant Left: Hip [place] 09/19/2028 2153-4644 / / [id number] Scrw Hex 6.5x20 - [id number] Implanted:Qty : 1 on 03/14/2024 by Chris Zhang M.D. at [facility] Hip Implant Left: Hip Ruben 10/30/2028 7940-1877 / / [id number] Lnr X3 Szd 36 - [id number] Implanted:Qty : 1 on 03/14/2024 by Chris Zhang M.D. at [facility] Hip Implant Left: Hip Ruben 12/12/2028 723-00-36D / / [id number] Scrw Hex 6.5x15 - [id number] Implanted:Qty : 1 on 03/14/2024 by Chris Zhang M.D. at [facility] Hip Implant Left: Hip Ruben 11/08/2028 3940-1982 / / [id number] Knee Sigma C S Non Porous Fem Rt Sz 3 - [id number] Implanted:Qty : 1 on 01/17/2006 Knee Implant Other/Legacy - See Implant Description Depuy Synthes Description:Device Manufactu rer - [employer] Inc.. Body Location - Other. Right. Device Status Text - KNEE IMP-52521. J J Sig Fem Stem 5 13 X 90 - [id number] Implanted:Qty : 1 on 01/17/2006 Knee Implant Other/Legacy - See Implant Description Kuaidi Dache Inc Description:Device Manufactu rer - J [employer] J Ortho. Body Location - Other. Right. Device Status Text - KNEE IMP-492758. J J Stem Ext Tib #2 3 13x30 - [id number] Implanted:Qty : 1 on 01/17/2006 Knee Implant Other/Legacy - See Implant Description Ke & Nimbus Data Services Inc Description:Device Manufactu rer - J & J Ortho. Body Location - Other. Right. Device Status Text - KNEE IMP-532232. Depuy-Tib Tray Mod Cement Cocr Sz2 - Ramirez [id number] Implanted:Qty : 1 on 01/17/2006 Knee Implant Other/Legacy - See Implant Description Ke [employer] Ke Services Inc Description:Device Manufactu rer - J & J Ortho. Body Location - Other. Right. Device Status Text - KNEE IMP-512318. J J Sig Fem Post Apr 21 Comb #3 8 - [id number] Implanted:Qty : 1 on 01/17/2006 Knee Implant Other/Legacy - See Implant Description Ke [employer] Nimbus [employer] Services Inc Description:Device Manufactu rer - J & J Ortho. Body Location - Other. Right. Device Status Text - KNEE IMP-810664. J J Sig Fem Post Apr 21 Comb #3 8 - Ramirez [id number] Implanted:Qty : 1 on 01/17/2006 Knee Implant Other/Legacy - See Implant Description Kuaidi Dache Inc Description:Device Manufactu rer - J & J Ortho. Body Location - Other. Right. Device Status Text - KNEE IMP-120580. J J Sig Fem [place] - Ramirez [id number] Implanted:Qty : 1 on 01/17/2006 Knee Implant Other/Legacy - See Implant Description Ke [employer] Nimbus [employer] Services Inc Description:Device Manufactu rer - J & J Ortho. Body Location - Other. Right. Device Status Text - KNEE IMP-908941. Knee Sigma Gvf Stab 2 12.5m Insert - Ramirez [id number] Implanted:Qty : 1 on 01/17/2006 Knee Implant Other/Legacy - See Implant Description Ke [employer] Ke Services Inc Description:Device Manufactu rer - J & J Ortho. Body Location - Other. Right. Device Status Text - KNEE IMP-154708. Plug Bone [place] 30mm - Ramirez [id number] Implanted:Qty : 1 on 01/17/2006 Mesh or Patch Armington Description:Device Manufactu rer - Armington Loly.. Device Status Text - MESHPATCH-85624. Plug Bone [place] 24mm - Ramirez [id number] Implanted:Qty : 1 on 01/17/2006 Mesh or Patch [place]ington Description:Device Manufactu rer - Ruben Loly.. Device Status Text - MESHPATCH-470. Cement Bone Large - Ramirez [id number] Implanted:Qty : 3 on 01/17/2006 [facility] Other Ruben Description:Device Manufactu rer - [place] Loly.. Device Status Text - MISCOTHER-2840. Cement Bone Small - Ramirez [id number] Implanted:Qty : 1 on 01/17/2006 Mis Other [place]ington Description:Device Manufactu rer - Ruben Loly.. Device Status Text - MISCOTHER-2841. Fibertak Button Implant System Implanted:Qty : 1 on 12/05/2023 by Yan Stewart M.D. at [facility] Orthopedic Other Left: Shoulder Arthrex [id number] 09/17/2028 AR-3680 / / [id number] 2.6 Fibertak Rc Blue Implanted:Qty : 1 on 12/05/2023 by Yan Stewart M.D. at [facility] Orthopedic Other Left: Shoulder Arthrex [id number] 03/17/2028 AR-3652TSP / / [id number] Spn Cg Cndt Cif 7mm 8d S - [id number] Implanted:Qty : 1 on 02/16/2021 by Buddy Holland M.D. at [facility] Spine Implant Anterior: Spine Cervical Depuy Synthes 06/17/2025 [id number] / / [id number] Explanted Type Area C Winforms Developer Device Identifier Shelf Expiration Date Model / Serial / Lot Allogenic, Femoral Head - [id number] Explanted:Qty : 1 on 03/24/2022 at [facility] Bone [facility] Tissue [facility] / Allogenic, Femoral Head - [id number] Explanted:Qty : 1 on 03/14/2024 at [facility] Bone or Tissue Left: Hip [facility]00 02 / / Procedures Procedure Name Priority Date/Time Associated Diagnosis Comments DX KNEE LEFT 4+ VIEWS RAD - Routine (most inpatients and all outpatients) 06/25/2024 3:31 PM CDT Pain Knee Left Arthroplasty Total Knee Replacement Status Post Right DX HIP TO ANKLE STANDING RAD - Routine (most inpatients and all outpatients) 06/25/2024 3:30 PM CDT Pain Knee Left Arthroplasty Total Knee Replacement Status Post Right DX HIP AND PELVIS LEFT 4+ VIEWS RAD - Routine (most inpatients and all outpatients) 06/25/2024 1:09 PM CDT Arthroplasty Total Hip Replacement Status Post Left MR CERVICAL SPINE WITHOUT IV CONTRAST RAD - Routine (most inpatients and all outpatients) 04/15/2024 12:58 PM CDT Fusion Cervical Spine Status Post Stenosis Spinal Cervical DX CERVICAL SPINE 4-5 VIEWS RAD - Routine (most inpatients and all outpatients) 04/15/2024 11:05 AM CDT Fusion Cervical Spine Status Post Stenosis Spinal Cervical BASIC METABOLIC PANEL, S/P Routine 03/15/2024 5:08 AM CDT [facility] SCREEN TEST SET Routine 03/14/2024 1:29 PM CDT from Last 3 Months or Most Recently Relevant to Health Maintenance Results * DX Knee Left 4+ Views (06/25/2024 3:31 PM CDT) Anatomical Region Laterality Modality Lower Extremity, Knee, Muscu loskeletal RST LOS, Musculoskeletal ARZ LOS, Muskuloskeletal FLA LOS Left Digit al Radiography Impressions 06/25/2024 3:41 PM CDT Chondrocalcinosis and degenerative arthritis left knee. Small left knee effusion. Right TKA with patellar resurfacing. Full-length views of both lower extremities obtained for orthopedic measurement purposes. ??Bilateral THAs. Partially visualized instrumented lumbar fusion. Narrative 06/25/2024 3:41 PM CDT EXAM: ??DX HIP TO ANKLE STANDING, DX KNEE LEFT 4+ VIEWS Procedure Note Chris Honeycutt M.D. - 06/25/2024 EXAM: DX HIP TO ANKLE STANDING, DX KNEE LEFT 4+ VIEWS IMPRESSION: Chondrocalcinosis and degenerative arthritis left knee. Small left kneeeffusion. Right TKA with patellar resurfacing. Full-length views of bothlower extremities obtained for orthopedic measurement purposes. BilateralTHAs. Partially visualized instrumented lumbar fusion. Henry Rey P.A.-C., M.S. IMG DIAGNO STIC IMAGING PROCEDURES * DX Hip to Ankle Standing (06/25/2024 3:30 PM CDT) Anatomical Region Laterality Modality Lower Extremity, Hip, Femur, Knee, TibFib, Ankle, Musculoskeletal RST LOS, Musculoskeletal ARZ LOS, Muskuloskeletal FLA LOS N/A Digital Radiography Impressions 06/25/2024 3:41 PM CDT Chondrocalcinosis and degenerative arthritis left knee. Small left knee effusion. Right TKA with patellar resurfacing. Full-length views of both lower extremities obtained for orthopedic measurement purposes. ??Bilateral THAs. Partially visualized instrumented lumbar fusion. Narrative 06/25/2024 3:41 PM CDT EXAM: ??DX HIP TO ANKLE STANDING, DX KNEE LEFT 4+ VIEWS Procedure Note Chris Honeycutt M.D. - 06/25/2024 EXAM: DX HIP TO ANKLE STANDING, DX KNEE LEFT 4+ VIEWS IMPRESSION: Chondrocalcinosis and degenerative arthritis left knee. Small left kneeeffusion. Right TKA with patellar resurfacing. Full-length views of bothlower extremities obtained for orthopedic measurement purposes. BilateralTHAs. Partially visualized instrumented lumbar fusion. Henry Rey P.A.-C., M.S. IMG DIAGNO STIC IMAGING PROCEDURES * DX Hip And Pelvis Left 4+ Views (06/25/2024 1:09 PM CDT) Anatomical Region Laterality Modality Lower Extremity, Pelvis, Hip , Musculoskeletal RST LOS, Musculoskeletal ARZ LOS, Muskuloskeletal FLA LOS Left Digit al Radiography Impressions 06/25/2024 1:24 PM CDT Left MATT. No radiographic evidence of loosening. Right MATT. Lower lumbar instrumented fusion. Degenerative changes pubic symphysis, lower lumbar spine and both sacroiliac joints. Narrative 06/25/2024 1:24 PM CDT EXAM: ??DX HIP AND PELVIS LEFT 4+ VIEWS Procedure Note Lina Strong M.D. - 06/25/2024 EXAM: DX HIP AND PELVIS LEFT 4+ VIEWS IMPRESSION: Left MATT. No radiographic evidence of loosening. Right MATT. Lower lumbarinstrumented fusion. Degenerative changes pubic symphysis, lower lumbarspine and both sacroiliac joints. Peace Key M.D. IMG DIAGNOSTIC IM AGING PROCEDURES * MR Cervical Spine without IV Contrast [...] Cervical Spine, Musculoskele graham RST LOS, Neuroradiology ARKd LOS, Muskuloskeletal FLA LOS N/A Digita l [...] IMG DIAGNOSTIC IM AGING PROCEDURES * (ABNORMAL) Basic Metabolic Panel (03/15/2024 5:08 [...] CDT Peace Key M.D. LAB BLOOD ADD-ON [facility] [place] [address] [place] [address], [facility] DTL [facility] [address] [place] [address] * MBC Tissue Donor Screen Test (03/14/2024 [...] 1:29 PM CDT 03/14/2024 1:39 PM CDT [facility] DONOR TESTING AND [facility] - 03/18/2024 2:49 PM CDT Specimen Information: Specimen ID: [id number] Specimen Type: Blood Specimen Collection Start Date: 03/14/2024 ??1:29 PM Specimen Received Date: 03/14/2024 ??1:39 PM Specimen ID: [id number] Specimen Type: Blood Specimen Collection Start Date: 03/14/2024 ??1:29 PM Specimen Received Date: 03/14/2024 ??1:39 PM Specimen ID: [id number] Specimen Type: Blood Specimen Collection Start Date: 03/14/2024 ??1:29 PM Specimen Received Date: 03/14/2024 ??1:39 PM Specimen ID: [id number] Specimen Type: Blood Specimen Collection Start Date: 03/14/2024 ??1:29 PM Specimen Received Date: 03/14/2024 ??1:39 PM Kvng Claudio M.D., Ph.D. LAB BLOOD NON ADD-ON [facility] DONOR TESTING AND [facility] [address] [place] [address], [facility] Blood [facility], Donor Testing and [facility] [address] [place] [address] from Last 3 Months or Most Recently Relevant to Health Maintenance Advance Directives For more information, please contact: [phone] Documents on File Type Date Recorded Patient Exploitation Analyst Expl anation Advance Directives 01/16/2006 12:00 AM Lega taya document. See document viewer. * Full Code (Latest Code Status on File) Date Activated Date Inactivated Comments 02/16/2021 1:25 PM 02/18/2021 3:39 PM Question Answer Comments Full Code: Not Discussed Due to: Patient not available * Full Code Date Activated Date Inactivated Comments 02/16/2021 1:24 PM 02/16/2021 1:25 PM Question Answer Comments Full Code: Discussed Care Teams Electrical Continuity Inspector Relationship Specialty Start Date End Date Elsewhere, Pcp PCP - General Family Medicine 02/11/21
--- OUTSIDE RECORDS SUMMARY | 2024-06-28 13:34 | XMS_ITS | Encounter Summary ---
Author Organization [facility] Address [address] [place] [address] Care Team Providers Care Vein Pumper Name Role Phone Elsewhere, Pcp Primary Care Provider Unavailabl e Reason for Referral * Outpatient (Routine) - Closed Specialty Diagnoses / Procedures Referred By Shruthi gracia Referred To Contact Diagnoses Pain Knee Left Arthroplasty Total Knee Replacement Status Post Right Procedures DX Hip to Ankle Standing Henry Rey P.A.-C., M.S. 200 [place] [address] [facility] Referral ID Status Reason Start Date Expiration Date Visits Re quested Visits Authorized [id number] Closed 06/25/2024 06/25/2025 1 1 * Outpatient (Routine) - Closed Specialty Diagnoses / Procedures Referred By Shruthi gracia Referred To Contact Diagnoses Pain Knee Left Arthroplasty Total Knee Replacement Status Post Right Procedures DX Knee Left 4+ Views Henry Rey P.A.-C., M.S. [address] [place] [phone] [facility] Referral ID Status Reason Start Date Expiration Date Visits Re quested Visits Authorized [id number] Closed 06/25/2024 06/25/2025 1 1 Reason for Visit * Reason Comments Post-op * Outpatient (Routine) - Closed Specialty Diagnoses / Procedures Referred By Shruthi gracia Referred To Contact Orthopedic Surgery Diagnoses Arthroplasty Total Hip Replacement Status Post Left Peace Key M.D. [facility] Referral ID Status Reason Start Date Expiration Date Visits Re quested Visits Authorized [id number] Closed 03/15/2024 09/14/2025 1 1 Encounter Details Date Type Department Care Team (Late st Contact Info) Description 06/25/2024 2:30 PM CDT Office Visit Department of Orthopedic Surgery in [place], [place] [address] [place] [address] Henry Rey P.A.-C., M.S. [address] [place] [address] Arthroplasty Total Hip Replacement Status Post Left (Primary Dx); Pain Knee Left; Arthroplasty Total Knee Replacement Status Post Right Social History Tobacco Use Types Packs/Day Years Used Date Smoking Tobacco: Never Smokeless Tobacco: Never Alcohol Use Standard Drinks/Week Comments Yes 3 (1 standard drink = 0.6 oz pur e alcohol) [facility] Utilities Answer Date Recorded In the past 12 months has [facility] [employer], gas, oil, or water [employer] threatened to shut off services in your [...] How often do you attend chur or adventist services? More than 4 times per year 07/01/2022 Do you belong to any clubs o r organizations such as moravian groups, unions, fraternal or athletic groups, or [...] care, and heating? Not very hard 08/02/2023 [facility] Occupat ional Health - [...] your living situation today? I have a [facility] place to live 03/14/2024 Education Answer Date Recorded What is the highest level of school you have completed or the highest degree you have received? 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 - 06/25/2024 2:30 PM CDT CHIEF COMPLAINT/REASON FOR VISIT #1 Status post left primary uncemented total hip arthroplasty on March 14, 2024, satisfactory recheck Service of Chris Zhang MD ([id number]) HISTORY OF PRESENT ILLNESS Flaca Arroyo is a 68 y.o. female who presents to the office today status post the above procedure. The patient is doing well, has minimal pain, and is not using any pain medications. The patient is not using any gait aids, is able to complete daily activities without any issue, and is pleased with the result. There have been no issues with the wound. She reports overall she is progressing well. She does notice still some start-up stiffness and someoccasional soreness. She brings up her lower back and left knee. She has a history of spine issues and has seen Dr. Holland for this. She reports her left knee pain is along the medial joint line. She notices particularly an issue with stairs. She would like to obtain some formal radiographs of this to get a baseline. PHYSICAL EXAM Wound: The wound is clean, dry, and intact and without any erythema or drainage. Gait: The patient ambulates with a non-antalgic gait. Hip Exam: There is no pain with log-rolling or range of motion of the left hip. Negative Stinchfield???s test. Range of motion in the LEs hip is from full extension to 110?? of flexion. Internal rotation is 10 and external rotation is 30??. Abduction is 40?? and adduction is 20??. Tenderness to palpation about the proximal rectus and psoas. Knee Exam: Examination of the patient's left knee reveals range of motion from full extension to 130 degrees of flexion. There is approximately 5-10 mm of opening with varus stress, which is correctable. Negative anterior and posterior drawer test. Tenderness to palpation about the medial joint line. IMAGING Review of radiographs dated today, 06/25/24 of the patient's left hip reveals a well-fixed and well-aligned uncemented total hip arthroplasty that is in expected position, without evidence of loosening, and without change from previous radiographs. IMPRESSION/REPORT/PLAN #1 Status post left primary uncemented total hip arthroplasty on March 14, 2024, satisfactory recheck #2 Left knee pain #3 Status post right primary uncemented total hip arthroplasty on March 24, 2022, doing well #4 Status post right knee revision arthroplasty on January 17, 2006 the subsequent manipulation under anesthesia on March 13, 2006, performed by Dr. Mcqueen, with chronic stiffness At this point the patient is doing very well and without any ongoing issues. We had good discussionabout ongoing care and activities. We will plan on seeing the patient at the routine follow-up intervals with corresponding x-rays. The patient knows to contact the service if any issues should develop. In regards to the left knee, we will obtain some updated radiographs. ADDITION Review of radiographs dated today June 25, 2024 of the patient's left knee reveal mild to moderate degenerative arthritis with mild joint space narrowing with minimal change when compared to previous radiographs. This will be relayed to the patient via portal. documented in this encounter Plan of Treatment Upcoming Encounters Date Type Department Care Team (Late st Contact Info) Description 08/20/2024 2:00 PM WINDOW TRIMMER APPRENTICE Clinical Support Department of Sports Medicine in [place], [place] [address] [place] [address] Yan Stewart M.D. [address] [place] [address] Darius Thompson PSusan, D.P.T., [facility] [address] [place] [phone] documented as of this encounter Results * DX Knee Left 4+ Views [...] instrumented lumbar fusion. Henry Rey P.A.-C., M.S. [facility]AGING PROCEDURES * DX Hip [...] instrumented lumbar fusion. Henry Rey P.A.-C., M.S. [facility] PROCEDURES documented in this encounter Visit Diagnoses Diagnosis Arthroplasty Total Hip Replacement Status Post Left- Primary Pain Knee Left Arthroplasty Total Knee Replacement Status Post Right Pain Knee Left Arthroplasty Total Knee Replacement Status Post Right Pain Knee Left Arthroplasty Total Knee Replacement Status Post Right documented in this encounter Care Teams Vein Pumper Relationship Specialty Start Date End Date Elsewhere, Pcp PCP - General Family Medicine 02/11/21 documented as of this encounter
--- OUTSIDE RECORDS SUMMARY | 2024-06-28 13:34 | XMS_ITS | Encounter Summary ---
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 [address] [place] [address] [facility] Referral ID Status Reason Start Date Expiration Date Visits Re quested Visits Authorized [id number] Closed 02/21/2024 02/20/2025 1 1 Encounter Details Date Type Department Care Team (Latest Contact Info) Description 04/15/2024 10:44 AM CDT - 04/15/2024 12:03 PM CDT Hospital Encounter Department of Radiology, [facility], in [place], [place] [address] [place] [address] Buddy Holland M.D. [address] [place] [phone] Fusion Cervical Spine Status Post; Stenosis Spinal Cervical Discharge Disposition: Home or Self Care Social History Tobacco Use Types Packs/Day Years Used Date Smoking Tobacco: Never Smokeless Tobacco: Never Alcohol Use Standard Drinks/Week Comments Yes 3 (1 standard drink = 0.6 oz pur e alcohol) [facility] Utilities Answer Date Recorded In the past 12 months has e [employer], gas, oil, or water [employer] threatened to shut off services in your [...] week 07/01/2022 How often do you attend [facility] or jehovah's witness services? More than 4 times per year [...] care, and heating? Not very hard 08/02/2023 [facility] [place] [facility] - Occupational Stress Questionnaire Answer Date [...] your living situation today? I have a [facility] place to live 03/14/2024 Education Answer Date Recorded What is the highest level of school you have completed or the highest degree you have received? 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 12/08/2022 calcium carbonate-vitamin D3 1,250 mg (500 mg [...] hours for 28 days. 224 tablet 03/14/2024 06/20/2024 aspirin 81 mg chewable tablet Chew 1 tablet (81 mg total) 2 (two) times a day with meals. Recommended to minimize risk of blood clot. Once completed, resume the usual dose of aspirin your primary provider may recommend. 84 tablet 03/14/2024 06/20/2024 celecoxib (CeleBREX) 200 mg capsule Take 1 capsule (200 mg total) by mouth daily. 30 capsule 03/14/2024 06/20/2024 clobetasoL (Temovate) 0.05 % cream Apply 1 Application topically 2 (two) times a day. Apply to area as instructed twice daily. 30 g 1 03/19/2024 06/20/2024 LORazepam (Ativan) 1 mg tablet Take 1 tablet (1 mg total) by mouth once for 1 dose. Take one hour prior to MRI 1 tablet 04/04/2024 06/20/2024 oxyCODONE (Roxicodone) 5 mg immediate release tabletIndications:Acu te Pain Exception Take 1 tablet (5 mg total) by mouth every 4 (four) hours as needed for severe pain or score 7-10 of 10 Indication: Acute Pain Exception. 25 tablet 03/14/2024 06/20/2024 traMADoL (Ultram) 50 mg tabletIndications:Acu te Pain Exception Take 1-2 tablets (50-100 mg total) by mouth every 8 (eight) hours as needed for pain Indications: Acute Pain Exception. Take 50 mg for pain 3-4. Take 100 mg for pain 5-6 40 tablet 03/14/2024 06/20/2024 documented as of this encounter Plan of Treatment Upcoming Encounters Date Type Department Care Team (Late st Contact Info) Description 08/20/2024 2:00 PM CRAFT ARTIST Clinical Support Department of Sports Medicine in [place], [place] [address] [place] [phone] Yan Stewart M.D. [address] [place] [phone] Darius Thompson, P.T., D.P.T., [facility] [address] [place] [phone] documented as of this encounter Procedures Procedure [...] Cervical documented in this encounter Care Teams Lacquer Machine Feeder Relationship Specialty Start Date End Date Elsewhere, Pcp PCP - General Family Medicine 02/11/21 documented as of this encounter
--- OUTSIDE RECORDS SUMMARY | 2024-06-28 13:34 | XMS_ITS | Encounter Summary ---
Author Organization [facility] Address [address] [place] [address] Care Team Providers Care Rn Integrity Name Role Phone Elsewhere, Pcp Primary Care Provider Unavailabl e Reason for Referral * Outpatient (Routine) - Closed Specialty Diagnoses / Procedures Referred By Shruthi gracia Referred To Contact Orthopedic Surgery Buddy Holland M.D. [address] [place] [phone] Buddy Holland M.D. [address] [place] [phone] Referral ID Status Reason Start Date Expiration Date Visits Re quested Visits Authorized [id number] Closed 04/18/2024 10/18/2025 1 1 Encounter Details Date Type Department Care Team (Late st Contact Info) Description 04/18/2024 Orders Only Department of Orthopedic Surgery in [place], [place] [address] [place] [phone] Buddy Holland M.D. [address] [place] [address] [place] [phone] Social History Tobacco Use Types Packs/Day Years Used Date Smoking Tobacco: Never Smokeless Tobacco: Never Alcohol Use Standard Drinks/Week Comments Yes 3 (1 standard drink = 0.6 oz pur e alcohol) [facility] Utilities Answer Date Recorded In the [...] 07/01/2022 How often do you attend [facility] or yazidism services? More than 4 times per year 07/01/2022 Do you belong to any clubs o r organizations such as sabianism groups, unions, fraternal or athletic groups, or [...] care, and heating? 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 [address] [place] [phone] Darius Thompson, P.T., D.P.T., [facility] [address] [place] [phone] Scheduled Referrals Name Type Priority Associated Diagnoses Order Schedule Orthopedic Surgery office visit (clinic) Outpatient Referral Routine Expected: 04/18/2024, Expires: 07/19/2025 documented as of this encounter Visit Diagnoses Not on filedocumented in this encounter Care Teams Rn Integrity Relationship Specialty Start Date End Date Elsewhere, Pcp PCP - General Family Medicine 02/11/21 documented as of this encounter
--- OUTSIDE RECORDS SUMMARY | 2024-06-28 13:34 | XMS_ITS | Encounter Summary ---
Author Organization [facility] Address [address] [place] [address] Care Team Providers Care Damascener Name Role Phone Elsewhere, Pcp Primary Care Provider Unavailabl e Encounter Details Date Type Department Care Team (Late st Contact Info) Description 04/29/2024 Orders Only Department of Orthopedic Surgery in [place], [place] [address] [place] [address] Mao Cohen S, P.A.-C. [address] [place] [address] Social History Tobacco Use Types Packs/Day Years Used Date Smoking Tobacco: Never Smokeless Tobacco: Never Alcohol Use Standard Drinks/Week Comments Yes 3 (1 standard drink = 0.6 oz pur e alcohol) [facility] Utilities Answer Date Recorded In the [...] any clubs o r organizations such as oriental orthodox groups, unions, fraternal or athletic groups, or [...] care, and heating? Not very hard 08/02/2023 [facility] of Occupat ional Health - Occupational Stress [...] your living situation today? I have a [facility] place to live 03/14/2024 Education Answer Date Recorded What is the highest level of school you have completed or the highest degree you have received? 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 200 [place] [phone] Darius Thompson P.T., RoselineP.T., [facility] 200 [place] [phone] documented as of this encounter Visit Diagnoses Not on filedocumented in this encounter Care Teams Damascener Relationship Specialty Start Date End Date Elsewhere, Pcp PCP - General Family Medicine 02/11/21 documented as of this encounter
--- OUTSIDE RECORDS SUMMARY | 2024-06-28 13:34 | XMS_ITS | Encounter Summary ---
Author Organization [facility] Address [address] [place] [address] Care Team Providers Care Steel Wool Machine Operator Name Role Phone Elsewhere, Pcp Primary Care Provider Unavailabl e Reason for Visit * Outpatient (Routine) - Closed Specialty Diagnoses / Procedures Referred By Shruthi gracia Referred To Contact Orthopedic Surgery Buddy Holland M.D. [address] [place] [phone] Buddy Holland M.D. [address] [place] [phone] Referral ID Status Reason Start Date Expiration Date Visits Re quested Visits Authorized [id number] Closed 04/18/2024 10/18/2025 1 1 Encounter Details Date Type Department Care Team (Late st Contact Info) Description 04/19/2024 9:00 AM CDT Office Visit Department of Orthopedic Surgery in [place], [place] [address] [place] [phone] Buddy Holland M.D. [address] [place] [phone] Fusion Cervical Spine Status Post (Primary Dx) Social History Tobacco Use Types Packs/Day Years Used Date Smoking Tobacco: Never Smokeless Tobacco: Never Alcohol Use Standard Drinks/Week Comments Yes 3 (1 standard drink = 0.6 oz pur e alcohol) [facility] Utilities Answer Date Recorded In [...] How often do you attend [facility] or jewish services? More than 4 times per year 07/01/2022 Do you belong to any clubs o r organizations such as religious groups, unions, fraternal or athletic groups, or [...] very hard 08/02/2023 [facility] - Occupational Stress Questionnaire Answer Date [...] Sexual Orientation Straight 11/09/2020 5: 08 PM ADMISSIONS RN documented as of this encounter Progress Notes [...] Buddy Holland M.D. CT CT Job ID: [id number] documented in this encounter Plan of Treatment Upcoming Encounters Date Type Department Care Team (Late st Contact Info) Description 08/20/2024 2:00 PM ADMISSIONS RN Clinical Support Department of Sports Medicine in [place], [place] [address] [place] [phone] Yan Stewart M.D. [address] [place] [phone] Darius Thompson P.T., Bernarda.P.T., [facility] [address] [place] [phone] documented as of this encounter Visit Diagnoses Diagnosis Fusion Cervical Spine Status Post- Primary documented in this encounter Care Teams Steel Wool Machine Operator Relationship Specialty Start Date End Date Elsewhere, Pcp PCP - General Family Medicine 02/11/21 documented as of this encounter
--- OUTSIDE RECORDS SUMMARY | 2024-06-28 13:34 | XMS_ITS | Encounter Summary ---
Author Organization [facility] Address [address] [place] [address] Care Team Providers Care Quality Assurance Lead Name Role Phone Elsewhere, Pcp Primary Care Provider Unavailabl e Reason for Referral * Outpatient (Routine) - Authorized Specialty Diagnoses / Procedures Referred By Shruthi gracia Referred To Contact Diagnoses Rotator Cuff Disorder Left Procedures Sports Medicine PT/AT - Ongoing Mao Cohen PCally-Beth [address] [place] [address] [facility] Referral ID Status Reason Start Date Expiration Date V isits Requested Visits Authorized [id number] Authorized 05/29/2024 05/29/2025 99 99 Reason for Visit * Outpatient (Routine) - Authorized Specialty Diagnoses / Procedures Referred By Contac t Referred To Contact Diagnoses Rotator Cuff Disorder Left Procedures Sports Medicine PT/AT - Ongoing Rst Spm Renetta [address] [place] [address] [facility] Referral ID Status Reason Start Date Expiration Date V isits Requested Visits Authorized [id number] Authorized 03/12/2024 03/12/2025 99 99 Encounter Details Date Type Department Care Team (Late st Contact Info) Description 05/29/2024 1:00 PM CDT Clinical Support Department of Sports Medicine in [place], [place] [address] [place] [phone] Yan Stewart M.D. [address] [place] [phone] Dianne Brunson P.T., D.P.T. [address] [place] [phone] Rotator Cuff Disorder Left (Primary Dx) Social History Tobacco Use Types Packs/Day Years Used Date Smoking Tobacco: Never Smokeless Tobacco: Never Alcohol Use Standard Drinks/Week Comments Yes 3 (1 standard drink = 0.6 oz pur e alcohol) [facility] Utilities Answer Date Recorded In the past 12 months has [employer], gas, oil, or water [employer] threatened to shut off services in your [...] week 07/01/2022 How often do you attend [facility] or amish services? More than 4 times per year 07/01/2022 Do you belong to any clubs o r organizations such as gnosticism groups, unions, fraternal or athletic groups, or [...] care, and heating? Not very hard 08/02/2023 [facility] Occupat ional Health [...] your living situation today? I have a [facility] place to live 03/14/2024 Education Answer Date Recorded What is the highest level of school you have completed or the highest degree you have received? Bachelor's degree (e.g., BA, AB, BS) 03/08/2019 Sex and Gender Information Value Date Recorded Sex Assigned at Female 03/31/2018 3:46 PM CDT Gender Identity Female 03/31/2018 3:46 PM CDT Sexual Orientation Straight 11/09/2020 5: 08 PM EXTRUSION PRESS SUPERVISOR documented as of this encounter Progress Notes * Michael Bhat, SPT - 05/29/2024 1:00 PM CDT Sports Medicine Physical Therapy post-operative Evaluation and Treatment SUBJECTIVE Patient's Name: Flaca Ty Cruz Referring Provider: No ref. provider found Visit Diagnosis: 1. Rotator Cuff Disorder Left Reason for Referral: Occupational therapy evaluation and treatment: pre-op Onset Date: 12/05/23 Payor: [employer] / Plan: [facility] [place] / Product Type: PPO / PERTINENT MEDICAL / SURGICAL HISTORY: Patient Active Problem List Diagnosis Tendinitis Bicipital Right Sprain Subscapularis Muscle Initial Right Fusion Cervical Spine Status Post Primary Osteoarthritis Hip Right Arthritis Spine (HCC) Pain Hip Right Dystrophic Toenail Onycholysis Callus Phillips Foot Pain Foot Right Neuropathy Peripheral Pes Planus Right Hammer Toe Acquired Left Onychomycosis Pain Shoulder Left Primary Osteoarthritis Hip Left Past Surgical History: Procedure Laterality Date ARTHROPLASTY REPLACEMENT TOTAL HIP Right 03/24/2022 Procedure: Right ARTHROPLASTY REPLACEMENT TOTAL HIP.; Surgeon: Chris Zhang M.D.; [facility] ARTHROPLASTY REPLACEMENT TOTAL HIP Left 03/14/2024 Procedure: Left ARTHROPLASTY REPLACEMENT TOTAL HIP.; Surgeon: Chris Zhang M.D.; Location: [facility] OR BACK SURGERY x 2 BUNIONECTOMY Bilateral FUSION SPINE ANTERIOR CERVICAL N/A 02/16/2021 Procedure: C5 corpectomy, C4-7 Fusion.; Surgeon: Buddy Holland M.D.; [facility] JOINT REPLACEMENT Right 2021 TKA, revision 2005 OTHER CONVERTED SHX (SEE COMMENT) N/A 03/13/2006 >Manipulation under anesthesia. 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 We are following the [facility] STANDARD Rotator Cuff Repair Rehabilitation Protocol. She [...] st Contact Info) Description 08/20/2024 2:00 PM EXTRUSION PRESS SUPERVISOR Clinical Support Department of Sports Medicine in [place], [place] [address] [place] [address] Yan Stewart M.D. [address] [place] [address] Darius Thompson P.T., D.P.T., [facility] [address] [place] [phone] Scheduled Orders Name Type Priority Associated Diagnoses Orde r Schedule Sports Medicine PT/AT - Ongoing Procedures Routine Rotator Cuff Disorder Left Expected: 08/28/2024 (Approximate), Expires: 11/26/2024 documented as of this encounter Visit Diagnoses Diagnosis Rotator Cuff Disorder Left- Primary documented in this encounter Care Teams Quality Assurance Lead Relationship Specialty Start Date End Date Elsewhere, Pcp PCP - General Family Medicine 02/11/21 documented as of this encounter
--- OUTSIDE RECORDS SUMMARY | 2024-06-28 13:34 | XMS_ITS | Encounter Summary ---
Author Organization [facility] Address [address] [place] [address] Care Team Providers Care Automotive Designer Name Role Phone Elsewhere, Pcp Primary Care Provider Unavailabl e Reason for Referral * Outpatient (Routine) - Closed Specialty Diagnoses / Procedures Referred By Shruthi gracia Referred To Contact Diagnoses Arthroplasty Total Hip Replacement Status Post Left Procedures DX Hip And Pelvis Left 4+ Views Peace Key M.D. [facility] Referral ID Status Reason Start Date Expiration Date Visits Re quested Visits Authorized [id number] Closed 03/15/2024 03/15/2025 1 1 Reason for Visit * Outpatient (Routine) - Closed Specialty Diagnoses / Procedures Referred By Shruthi gracia Referred To Contact Diagnoses Arthroplasty Total Hip Replacement Status Post Left Procedures DX Hip And Pelvis Left 4+ Views Peace Key M.D. [facility] Referral ID Status Reason Start Date Expiration Date Visits Re quested Visits Authorized [id number] Closed 03/15/2024 03/15/2025 1 1 Encounter Details Date Type Department Care Team (Latest Contact Info) Description 06/25/2024 12:55 PM CDT - 06/25/2024 3:14 PM CDT Hospital Encounter Department of Radiology, [facility], in [place], [place] [address] [place] [address] Peace Key M.D. Arthroplasty Total Hip Replacement Status Post Left Discharge Disposition: Home or Self Care Social History Tobacco Use Types Packs/Day Years Used Date Smoking Tobacco: Never Smokeless Tobacco: Never Alcohol Use Standard Drinks/Week Comments Yes 3 (1 standard drink = 0.6 oz pur e alcohol) [facility] Utilities Answer Date Recorded In the past 12 months has th e [employer], gas, oil, or water [employer] threatened to shut off services in your [...] often do you attend chur ch or lutheran services? More than 4 times per year 07/01/2022 Do you belong to any clubs o r organizations such as taoist groups, unions, fraternal or athletic groups, or [...] care, and heating? Not very hard 08/02/2023 [facility] of Occupat ional Health - Occupational [...] your living situation today? I have a [employer] [facility] [employer] place to live 03/14/2024 Education Answer Date Recorded What is the highest level of school you have completed or the highest degree you have received? 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 B complex-vitamins (Vitamins B Complex) tablet Take 1 tablet by mouth daily. 12/08/2022 calcium carbonate-vitamin D3 1,250 mg (500 mg calcium)-5 mcg (200 Unit) per tablet Take 2 tablets by mouth daily with breakfast. cyanocobalamin (VITAMIN B12) 1,000 mcg tablet Take 1,000 mcg by mouth daily. DAILY MULTI-VITAMIN ORAL Take 1 tablet by mouth daily. 12/18/2023 MAGNESIUM CITRATE ORAL Take 250 mg by mouth 2 (two) times a day. 05/17/2024 documented as of this encounter Plan of Treatment Upcoming Encounters Date Type Department Care Team (Late st Contact Info) Description 08/20/2024 2:00 PM SHEET METAL ROOFER Clinical Support Department of Sports Medicine in [place], [place] [address] [place] [address] Yan Stewart M.D. [address] [place] [address] Darius Thompson P.T., D.P.T., [facility] [address] [place] [address] documented as of this encounter Procedures Procedure Name Priority Date/Time Associated Diagnosis Comments DX HIP AND PELVIS LEFT 4+ VIEWS RAD - Routine (most inpatients and all outpatients) 06/25/2024 1:09 PM CDT Arthroplasty Total Hip Replacement Status Post Left documented in this encounter Results * DX Hip And Pelvis Left 4+ [...] Key M.D. IMG DIAGNOSTIC IM AGING PROCEDURES documented in this encounter Visit Diagnoses Diagnosis Arthroplasty Total Hip Replacement Status Post Left documented in this encounter Care Teams Automotive Designer Relationship Specialty Start Date End Date Elsewhere, Pcp PCP - General Family Medicine 02/11/21 documented as of this encounter
--- OUTSIDE RECORDS SUMMARY | 2024-06-28 13:34 | XMS_ITS | Encounter Summary ---
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 [address] [place] [address] [facility] Referral ID Status Reason Start Date Expiration Date Visits Re quested Visits Authorized [id number] Closed 06/25/2024 06/25/2025 1 1 Reason for Visit * Outpatient (Routine) - Closed Specialty Diagnoses / Procedures Referred By Shruthi gracia Referred To Contact Diagnoses Pain Knee Left Arthroplasty Total Knee Replacement Status Post Right Procedures DX Knee Left 4+ Views Henry Rey P.A.-C., M.S. [address] [place] [phone] [facility] Referral ID Status Reason Start Date Expiration Date Visits Re quested Visits Authorized [id number] Closed 06/25/2024 06/25/2025 1 1 Encounter Details Date Type Department Care Team (Latest Contact Info) Description 06/25/2024 3:15 PM CDT - 06/25/2024 11:59 PM CDT Hospital Encounter Department of Radiology, [facility], in [place], [place] [address] [place] [address] Henry Rey P.A.-C., M.S. [address] [place] [address] Pain Knee Left; Arthroplasty Total Knee Replacement Status Post Right Discharge Disposition: Home or Self Care Social History Tobacco Use Types Packs/Day Years Used Date Smoking Tobacco: Never Smokeless Tobacco: Never Alcohol Use Standard Drinks/Week Comments Yes 3 (1 standard drink = 0.6 oz pur e alcohol) [facility] Utilities Answer Date Recorded In the past 12 months has e electric, gas, oil, or water [employer] threatened to shut off services in your [...] often do you attend chur ch or evangelical services? More than 4 times per year [...] care, and heating? Not very hard 08/02/2023 [facility] of Occupat ional Health - Occupational [...] your living situation today? I have a [facility] place to live 03/14/2024 Education Answer Date Recorded What is the highest level of school you have completed or the highest degree you have received? Bachelor's degree (e.g., BA, AB, BS) 03/08/2019 Sex and Gender Information Value Date Recorded Sex Assigned at Female 03/31/2018 3:46 PM CDT Gender Identity Female 03/31/2018 3:46 PM CDT Sexual Orientation Straight 11/09/2020 5: 08 PM SEWAGE PLANT SUPERVISOR documented as of this encounter Medications at [...] st Contact Info) Description 08/20/2024 2:00 PM SEWAGE PLANT SUPERVISOR Clinical Support Department of Sports Medicine in [place], [place] [address] [place] [address] Yan Stewart M.D. [address] [place] [address] Darius Thompson P.T., D.P.T., [facility] [address] [place] [address] documented as of this encounter Procedures Procedure Name Priority Date/Time Associated Diagnosis Comments DX KNEE LEFT 4+ VIEWS RAD - Routine (most inpatients and all outpatients) 06/25/2024 3:31 PM CDT Pain Knee Left Arthroplasty Total Knee Replacement Status Post Right documented in this encounter Results * DX Knee Left [...] P.A.-C., M.S. IMG DIAGNO STIC IMAGING PROCEDURES documented in this encounter Visit Diagnoses Diagnosis Pain Knee Left Arthroplasty Total Knee Replacement Status Post Right documented in this encounter Care Teams Game Design Instructor Relationship Specialty Start Date End Date Elsewhere, Pcp PCP - General Family Medicine 02/11/21 documented as of this encounter
--- OUTSIDE RECORDS SUMMARY | 2024-06-28 13:34 | XMS_ITS | Encounter Summary ---
Author Organization [facility] Address [address] [place] [address] Care Team Providers Care Cyber Transport Systems Specialist Name Role Phone Elsewhere, Pcp Primary Care Provider Unavailabl e Reason for Visit * Reason Onset Date Comments Pre-visit Intake 06/20/2024 Encounter Details Date Type Department Care Team (Latest Contact Info) Description 06/20/2024 3:00 PM CDT Clinical Communication Virtual Review in [place], [place] [address] [place] [address] Pre-visit Intake Social History Tobacco Use Types Packs/Day Years Used Date Smoking Tobacco: Never Smokeless Tobacco: Never Alcohol Use Standard Drinks/Week Comments Yes 3 (1 standard drink = 0.6 oz pur e alcohol) [facility] Utilities Answer Date Recorded In [...] How often do you attend chur or religion services? More than 4 times per year 07/01/2022 Do you belong to any clubs o r organizations such as temple groups, unions, fraternal or athletic groups, or [...] and heating? Not very hard 08/02/2023 [facility] Occupat ional Health - Occupational Stress [...] your living situation today? I have a [facility] place to live 03/14/2024 Education Answer Date Recorded What is the highest level of school you have completed or the highest degree you have received? Bachelor's degree (e.g., BA, AB, BS) 03/08/2019 Sex and Gender Information Value Date Recorded Sex Assigned at Female 03/31/2018 3:46 PM CDT Gender Identity Female 03/31/2018 3:46 PM CDT Sexual Orientation Straight 11/09/2020 5: 08 PM NETWORK DESKTOP SUPPORT SPECIALIST documented as of this encounter Plan of Treatment Upcoming Encounters Date Type Department Care Team (Late st Contact Info) Description 08/20/2024 2:00 PM NETWORK DESKTOP SUPPORT SPECIALIST Clinical Support Department of Sports Medicine in [place], [place] [address] [place] [phone] Yan Stewart M.D. [address] [place] [phone] Darius Thompson, P.T., D.P.T., [facility] [address] [place] [address] documented as of this encounter Visit Diagnoses Not on filedocumented in this encounter Care Teams Cyber Transport Systems Specialist Relationship Specialty Start Date End Date Elsewhere, Pcp PCP - General Family Medicine 02/11/21 documented as of this encounter
--- OUTSIDE RECORDS SUMMARY | 2024-06-28 13:34 | XMS_ITS ---
Author Organization [facility] Address [address] [place] [address] Care Team Providers Care Senior Pricing Analyst Name Role Phone Unavailable Unavailable Unavailable Surgery Details Not on file Complications Check Surgery Details section. Procedure Estimated Blood Loss Check Surgery Details section. Procedure Findings Check Surgery Details section. Procedure Specimens Taken Check Surgery Details section.
--- OUTSIDE RECORDS SUMMARY | 2024-06-28 13:34 | XMS_ITS | Referral Summary ---
Author Organization [facility] Address [address] [place] [address] Care Team Providers Care Nurse Care Manager Name Role Phone Elsewhere, Pcp Primary Care Provider Unavailabl e Source Comments Patient records contain information from all sites at [facility]. For routine questions regarding patient records, call [phone] during business hours, M-F 8:00 AM - 5:00 PM Central Time. Record requests for emergency care only can be directed to [phone] at any time.[facility] Encounters Date Type Department Care Team Description 06/25/2024 3:15 PM CDT - 06/25/2024 11:59 PM CDT Hospital Encounter Department of Radiology, [facility], in [place], [place] [address] [place] [address] Henry Rey P.A.-C., M.S. 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, in [address] [address] Peace Key M.D. Arthroplasty Total Hip Replacement Status Post Left Discharge Disposition: Home or Self Care 06/20/2024 3:00 PM CDT Clinical Communication Virtual Review in [address] [address] Pre-visit Intake 05/29/2024 1:00 PM CDT Clinical Support Department of Sports Medicine in [address] [address] Yan Stewart M.D. Lewis, Jessica L, P.TDanay, D.P.T. Rotator Cuff Disorder Left (Primary Dx) 04/29/2024 Orders Only Department of Orthopedic Surgery in [address] [address] Mao Cohen, PHermelindo 04/19/2024 9:00 AM CDT Office Visit Department of Orthopedic Surgery in [address] [address] Buddy Holland M.D. Fusion Cervical Spine Status Post (Primary Dx) 04/18/2024 Orders Only Department of Orthopedic Surgery in [address] [address] Buddy Holland M.D. 04/15/2024 10:44 AM CDT - 04/15/2024 12:03 PM CDT Hospital Encounter Department of Radiology, [place], [place] [address] [place] [address] Buddy Holland M.D. Fusion Cervical Spine Status Post; Stenosis Spinal Cervical Discharge Disposition: Home or Self Care 04/15/2024 12:04 PM CDT - 04/15/2024 11:59 PM CDT Hospital Encounter Department of Radiology, [place], [place] [address] [place] [address] Buddy Holland M.D. Fusion Cervical Spine Status Post; Stenosis Spinal Cervical Discharge Disposition: Home or Self Care 04/12/2024 Clinical Communication Department of Orthopedic Surgery in [place], [place] [address] [place] [address] Laura Alarcon P.A.-C., M.S. from Last 3 Months Allergies Active Allergy [...] total) by mouth daily. 30 capsule 03/14/2024 10/03/202 4 Discontinue d(Therapy completed) aspirin 81 mg chewable [...] for 2 weeks. 28 tablet 3 04/29/2024 Discontinue d(Therapy completed) Active Problems Problem Noted Date Diagnosed Date Primary Osteoarthritis Hip Left 11/20/2023 Pain Shoulder Left 09/25/2023 Dystrophic Toenail 11/04/2022 Onycholysis 11/04/2022 Callus [place] Foot 11/04/2022 Pain Foot Right 11/04/2022 Neuropathy Peripheral 11/04/2022 Pes Planus Right 11/04/2022 Hammer Toe Acquired Left 11/04/2022 Onychomycosis 11/04/2022 Pain Hip Right 03/24/2022 Arthritis Spine 03/14/2022 Primary Osteoarthritis Hip Right 10/06/2021 Overview (10/06/2021): Added automatically from request for surgery [id number] Fusion Cervical Spine Status Post 12/04/2020 Overview (12/04/2020): Added automatically from request for surgery [id number] Tendinitis Bicipital Right 03/11/2019 Sprain Subscapularis Muscle [...] drink = 0.6 oz pur e alcohol) [facility] [employer] Answer Date Recorded In the past 12 months has [employer], gas, oil, or water [employer]iku[employer] threatened to shut off services in your [...] any clubs o r organizations such as jehovah's witness groups, unions, fraternal or athletic groups, or [...] care, and heating? Not very hard 08/02/2023 [facility] of Occupat ional Health - Occupational Stress [...] your living situation today? I have a [facility] place to live 03/14/2024 Education Answer Date Recorded What is the highest level of school you have completed or the highest degree you have received? Bachelor's degree (e.g., BA, AB, BS) 03/08/2019 Sex and Gender Information Value Date Recorded Sex Assigned at Female 03/31/2018 3:46 PM CDT Gender Identity Female 03/31/2018 3:46 PM CDT Sexual Orientation Straight 11/09/2020 5: 08 PM MILITARY TECHNICIAN Last Filed Vital Signs Vital Sign Reading [...] st Contact Info) Description 08/20/2024 2:00 PM MILITARY TECHNICIAN Clinical Support Department of Sports Medicine in [place], [place] [address] [place] [address] Yan Stewart M.D. [address] [place] [address] Darius Thompson P.T., RoselineP.T., [facility] [address] [place] [address] Medical Devices Implanted Type Area Second Helper Device Identifier Shelf Expiration Date Model / Serial / Lot Gr Dbm f Pst 5 - [id number] - [id number] Implanted:Qty : 1 on 02/16/2021 by Buddy Holland M.D. at [facility] Bone or Tissue Anterior: Spine Cervical Medtronic 12/31/2022 [id number] / [id number] / Hardware E.G. Pins/Screws/R ods Hardware e.g. pins/screws /rods N/A: Back Spn Cg Bng Cerv Reji 20 - [id number] Implanted:Qty : 1 on 02/16/2021 by Buddy Holland M.D. at [facility] Hardware e.g. pins/screws /rods Anterior: Spine Cervical Depuy Synthes [id number] / / Spn Plt Dudley L3 48 - [id number] Implanted:Qty : 1 on 02/16/2021 by Buddy Holland M.D. at [facility] Hardware e.g. pins/screws /rods Anterior: Spine Cervical Depuy Synthes [id number] / / Spn Scrw Dudley Sfdr Thrd 4x16 - [id number] Implanted:Qty : 6 on 02/16/2021 by Buddy Holland M.D. at [facility] Hardware e.g. pins/screws /rods Anterior: Spine Cervical Depuy Synthes [id number] / / Anch Sut Swv 4.75x19.1 - [id number] Implanted:Qty : 1 on 12/05/2023 by Yan Stewart M.D. at [facility] Hardware e.g. pins/screws /rods Left: Shoulder Arthrex [id number] 09/17/2027 AR-2324BCC / / [id number] Shll Acet Trd Ii Mhl 50d - [id number] Implanted:Qty : 1 on 03/24/2022 at [facility] Hip Implant Right: Hip Ruben 11/24/2026 709-04-50D / / [id number] Scrw Hex 6.5x20 - [id number] Implanted:Qty : 1 on 03/24/2022 at [facility] Hip Implant Right: Hip Ruben 02/09/2027 7866-9580 / / [id number] Scrw Hex 6.5x15 - [id number] Implanted:Qty : 1 on 03/24/2022 at [facility] Hip Implant Right: Hip Roscoe [id number] 08/08/2024 3244-3178 / / [id number] Lnr X3 Szd 36 - [id number] Implanted:Qty : 1 on 03/24/2022 at [facility] Hip Implant Right: Hip Roscoe 02/14/2027 723-00-36D / / [id number] Hip Stm Ins Ofst Sz4 32.5x103 - [id number] Implanted:Qty : 1 on 03/24/2022 at [facility] Hip Implant Right: Hip Ruben 10/06/2026 8426-5926 / / [id number] Fem Hd Blx +5x36 - [id number] Implanted:Qty : 1 on 03/24/2022 at [facility] Hip Implant Right: Hip Ruben 12/06/2026 6570-0-236 / / [id number] Fem Hd Blx V40 +0x36 - [id number] Implanted:Qty : 1 on 03/14/2024 by Chris Zhang M.D. at [facility] Hip Implant Left: Hip Roscoe 08/20/2028 6570-0-136 / / [id number] Shll Acet Trd Ii Mhl 50d - [id number] Implanted:Qty : 1 on 03/14/2024 by Chris Zhang M.D. at [facility] Hip Implant Left: Hip Roscoe 10/10/2028 709-04-50D / / [id number] Hip Stm Ins Ofst Sz3 32.5x101 - [id number] Implanted:Qty : 1 on 03/14/2024 by Chris Zhang M.D. at [facility] Hip Implant Left: Hip Ruben 07/26/2028 2401-8274 / / [id number] Scrw Hex 6.5x15 - [id number] Implanted:Qty : 1 on 03/14/2024 by Chris Zhang M.D. at [facility] Hip Implant Left: Hip Ruben 11/08/2028 6197-3812 / / [id number] Scrw Hex 6.5x45 - [id number] Implanted:Qty : 1 on 03/14/2024 by Chris Zhang M.D. at [facility] Hip Implant Left: Hip Roscoe 09/19/2028 3025-5983 / / [id number] Scrw Hex 6.5x20 - [id number] Implanted:Qty : 1 on 03/14/2024 by Chris Zhang M.D. at [facility] Hip Implant Left: Hip Roscoe 10/30/2028 4142-4287 / / [id number] Lnr X3 Szd 36 - [id number] Implanted:Qty : 1 on 03/14/2024 by Chris Zhang M.D. at [facility] Hip Implant Left: Hip [place]coe 12/12/2028 723-00-36D / / [id number] Scrw Hex 6.5x15 - [id number] Implanted:Qty : 1 on 03/14/2024 by Chris Zhang M.D. at [facility] Hip Implant Left: Hip [place]coe 11/08/2028 9941-2155 / / [id number] Knee Sigma C S Non Porous Fem Rt Sz 3 - [id number] Implanted:Qty : 1 on 01/17/2006 Knee Implant Other/Legacy - See Implant Description docTrackruy Synthes Description:Device Manufactu rer - [employer] Body Location - Other. Right. Device Status Text - KNEE IMP-73155. J J Sig Fem Stem 5 13 X 90 - [id number] Implanted:Qty : 1 on 01/17/2006 Knee Implant Other/Legacy - See Implant Description [employer] Inc Description:Device Manufactu rer - J & J Ortho. Body Location - Other. Right. Device Status Text - KNEE IMP-962357. J J Stem Ext Tib #2 3 13x30 - [id number] Implanted:Qty : 1 on 01/17/2006 Knee Implant Other/Legacy - See Implant Description Ke & Invizeon Inc Description:Device Manufactu rer - J & J Ortho. Body Location - Other. Right. Device Status Text - KNEE IMP-254908. Depuy-Tib Tray Mod Cement Cocr Sz2 - Ramirez [id number] Implanted:Qty : 1 on 01/17/2006 Knee Implant Other/Legacy - See Implant Description [employer] Inc Description:Device Manufactu rer - J & J Ortho. Body Location - Other. Right. Device Status Text - KNEE IMP-401460. J J Sig Fem Post Apr 21 Comb #3 8 - [id number] Implanted:Qty : 1 on 01/17/2006 Knee Implant Other/Legacy - See Implant Description [employer] Inc Description:Device Manufactu rer - J & J Ortho. Body Location - Other. Right. Device Status Text - KNEE IMP-169416. J J Sig Fem Post Apr 21 Comb #3 8 - Ramirez [id number] Implanted:Qty : 1 on 01/17/2006 Knee Implant Other/Legacy - See Implant Description [employer] Inc Description:Device Manufactu rer - J & J Ortho. Body Location - Other. Right. Device Status Text - KNEE IMP-686299. J J Sig Fem [place] - Ramirez [id number] Implanted:Qty : 1 on 01/17/2006 Knee Implant Other/Legacy - See Implant Description [employer] Description:Device Manufactu rer - J & J Ortho. Body Location - Other. Right. Device Status Text - KNEE IMP-614308. Knee Sigma Gvf Stab 2 12.5m Insert - Ramirez [id number] Implanted:Qty : 1 on 01/17/2006 Knee Implant Other/Legacy - See Implant Description [employer] Inc Description:Device Manufactu rer - J & J Ortho. Body Location - Other. Right. Device Status Text - KNEE IMP-355275. Plug Bone [place] 30mm - Ramirez [id number] Implanted:Qty : 1 on 01/17/2006 Mesh or Patch Ruben Description:Device Manufactu rer - Roscoe Loly.. Device Status Text - MESHPATCH-06348. Plug Bone [place] 24mm - Ramirez [id number] Implanted:Qty : 1 on 01/17/2006 Mesh or Patch Ruben Description:Device Manufactu rer - Ruben Loly.. Device Status Text - MESHPATCH-470. Cement Bone Large - Ramirez [id number] Implanted:Qty : 3 on 01/17/2006 [facility] Other Roscoe Description:Device Manufactu rer - Roscoe Loly.. Device Status Text - MISCOTHER-2840. Cement Bone Small - Ramirez [id number] Implanted:Qty : 1 on 01/17/2006 [facility] Other Roscoe Description:Device Manufactu rer - Ruben Loly.. Device Status Text - MISCOTHER-2841. Fibertak Button Implant System Implanted:Qty : 1 on 12/05/2023 by Yan Stewart M.D. at [facility] Orthopedic Other Left: Shoulder Arthrex [id number] 09/17/2028 AR-3680 / / [id number] 2.6 Fibertak Rc Blue Implanted:Qty : 1 on 12/05/2023 by Yan Stewart M.D. at [facility] Orthopedic Other Left: Shoulder Arthrex [id number] 03/17/2028 AR-3652TSP / / [id number] Spn Cg Cndt Cif 7mm 8d S - [id number] Implanted:Qty : 1 on 02/16/2021 by Buddy Holland M.D. at [facility] Spine Implant Anterior: Spine Cervical Depuy Synthes 06/17/2025 [id number] / / [id number] Explanted Type Area Second Helper Device Identifier Shelf Expiration Date Model / Serial / Lot Allogenic, Femoral Head - [id number] Explanted:Qty : 1 on 03/24/2022 at [facility] Bone or Tissue Right: Hip [facility] [id number] / / Allogenic, Femoral Head - [id number] Explanted:Qty : 1 on 03/14/2024 at [facility] Bone or Tissue Left: Hip [facility] [id number] / / Procedures Procedure Name Priority [...] PANEL, S/P Routine 03/15/2024 5:08 AM CDT [facility] T[facility] DONOR SCREEN TEST SET Routine 03/14/2024 [...] and both sacroiliac joints. Peace Key M.D. I[facility] DIAGNOSTIC IM AGING PROCEDURES * MR Cervical [...] signal abnormality or pathologic enhancement. Procedure Note Iasi Childers M.D. - 04/15/2024 EXAM: MR CERVICAL [...] Buddy Holland M.D. IMArie MRI PROCEDURE S * DX Cervical Spine [...] CDT Peace Key M.D. LAB BLOOD ADD-ON [facility] [place] [address] [place] [address], [facility] DTL [facility] [address] [place] [address] * MBC Tissue Donor Screen Test (03/14/2024 [...] 1:29 PM CDT 03/14/2024 1:39 PM CDT [facility] DONOR TESTING AND [facility] - 03/18/2024 2:49 PM CDT Specimen Information: Specimen ID: [id number] Specimen Type: Blood Specimen Collection Start Date: 03/14/2024 ??1:29 PM Specimen Received Date: 03/14/2024 ??1:39 PM Specimen ID: [id number] Specimen Type: Blood Specimen Collection Start Date: 03/14/2024 ??1:29 PM Specimen Received Date: 03/14/2024 ??1:39 PM Specimen ID: [id number] Specimen Type: Blood Specimen Collection Start Date: 03/14/2024 ??1:29 PM Specimen Received Date: 03/14/2024 ??1:39 PM Specimen ID: [id number] Specimen Type: Blood Specimen Collection Start Date: 03/14/2024 ??1:29 PM Specimen Received Date: 03/14/2024 ??1:39 PM Kvng Claudio M.D., Ph.D. LAB BLOOD NON ADD-ON [facility] DONOR TESTING AND [facility] [address] [place] [address], [facility], Donor Testing and [facility] [address] [place] [address] from Last 3 Months or Most Recently Relevant to Health Maintenance Advance Directives For more information, please contact: [phone] Documents on File Type Date Recorded Patient Mosaic Floor Layer Expl anation Advance Directives 01/16/2006 12:00 AM [...] Answer Comments Full Code: Discussed Care Teams Nurse Care Manager Relationship Specialty Start Date End Date Elsewhere, Pcp PCP - General Family Medicine 02/11/21
--- OUTSIDE RECORDS SUMMARY | 2024-06-28 13:34 | XMS_ITS | Encounter Summary ---
Author Organization [facility] Address [address] [place] [address] Care Team Providers Care Death Claim Examiner Name Role Phone Elsewhere, Pcp Primary Care Provider Unavailabl e Reason for Referral * Outpatient (Routine) - Closed Specialty Diagnoses / Procedures Referred By Shruthi gracia Referred To Contact Diagnoses Pain Knee Left Arthroplasty Total Knee Replacement Status Post Right Procedures DX Hip to Ankle Standing Henry Rey P.A.-C., M.S. [address] [place] [address] [facility] Referral ID Status Reason Start Date Expiration Date Visits Re quested Visits Authorized [id number] Closed 06/25/2024 06/25/2025 1 1 Reason for Visit * Outpatient (Routine) - Closed Specialty Diagnoses / Procedures Referred By Shruthi gracia Referred To Contact Diagnoses Pain Knee Left Arthroplasty Total Knee Replacement Status Post Right Procedures DX Hip to Ankle Standing Henry Rey P.A.-C., M.S. [address] [place] [address] [facility] Referral ID Status Reason Start Date Expiration Date Visits Re quested Visits Authorized [id number] Closed 06/25/2024 06/25/2025 1 1 Encounter Details Date Type Department Care Team (Latest Contact Info) Description 06/25/2024 3:15 PM CDT - 06/25/2024 11:59 PM CDT Hospital Encounter Department of Radiology, [facility], in [place], [place] [address] [place] [address] Henry Rey P.A.-C., M.S. [address] [place] [address] Pain Knee Left; Arthroplasty Total Knee Replacement Status Post Right Discharge Disposition: Home or Self Care Social History Tobacco Use Types Packs/Day Years Used Date Smoking Tobacco: Never Smokeless Tobacco: Never Alcohol Use Standard Drinks/Week Comments Yes 3 (1 standard drink = 0.6 oz pur e alcohol) [facility] Utilities Answer Date Recorded In [...] often do you attend chur ch or church services? More than 4 times per year 07/01/2022 Do you belong to any clubs o r organizations such as zoroastrian groups, unions, fraternal or athletic groups, or [...] care, and heating? Not very hard 08/02/2023 [facility] of Occupat ional Health - [...] your living situation today? I have a [facility] place to live 03/14/2024 Education Answer Date Recorded What is the highest level of school you have completed or the highest degree you have received? 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 [address] [place] [address] Darius Thompson P.T., D.P.T., [facility] [address] [place] [address] documented as of this encounter Procedures Procedure Name Priority Date/Time Associated Diagnosis Comments DX HIP TO ANKLE STANDING RAD - Routine (most inpatients and all outpatients) 06/25/2024 3:30 PM CDT Pain Knee Left Arthroplasty Total Knee Replacement Status Post Right documented in this encounter Results * DX Hip to Ankle Standing (06/25/2024 [...] Right documented in this encounter Care Teams Death Claim Examiner Relationship Specialty Start Date End Date Elsewhere, Pcp PCP - General Family Medicine 02/11/21 documented as of this encounter
--- OUTSIDE RECORDS SUMMARY | 2024-06-28 13:35 | XMS_ITS | Clinical Summary ---
Author Organization [facility] Address [place], [place] [address] Care Team Providers Care Wheel And Pinion Inspector Name Role Phone Pcp, No Primary Care [...] Completed 04/06/2017 Medical Devices Implanted Type Area Residential Program Worker Device Identifier Shelf Expiration Date Model / Serial / Lot Keegan Lmbr 60x5.5mm Tsrh 3d Cvd Titnm - [id number] Implanted:Qty: 2 on 04/18/2017 by Jeevan Avelar MD at [facility] Spine Implants N/A: Spine Medtronic Spine/Ortho [id number]# / / [id number] one 1-4mm 30cc Medtronic Chips Canclls Freeze Dried Implanted:Qty: 1 on 04/18/2017 by Jeevan Avelar MD at [facility] Explanted:at [facility] (Quantity not on file) N/A: Spine Medtronic Spine/Ortho 12/21/2021 [id number]# / [id number] / Spacer Lmbr 9x30mm [place] Vbtlif Peek - [id number] Implanted:Qty: 1 on 04/18/2017 by Jeevan Avelar MD at [facility] N/A: Spine Medtronic Spine/Ortho 11/14/2024 [id number]# / / [id number] Cnnctr Lmbr Sm 5.5mm Tsrh 3dx Titnm - [id number] Implanted:Qty: 2 on 04/18/2017 by Jeevan Avelar MD at [facility] N/A: Spine Medtronic Spine/Ortho [id number]# / / Screw Lmbr Post 6.5x45mm Tsrh 3dx Og Thin Va - [id number] Implanted:Qty: 2 on 04/18/2017 by Jeevan Avelar MD at [facility] N/A: Spine Medtronic Spine/Ortho [id number]# / / Cnnctr Lmbr 6.35x5.5mm Keegan Connect Variable Titnm - [id number] Implanted:Qty: 2 on 04/18/2017 by Jeevan Avelar MD at [facility] N/A: Spine Medtronic Spine/Ortho [id number] # / / Set Screw Lmbr Std Keegan Connection Titnm - [id number] Implanted:Qty: 4 on 04/18/2017 by Jeevan Avelar MD at [facility] N/A: Spine Medtronic Spine/Ortho [id number] # / / Procedures Procedure Name Priority [...] care provider. XR MAMMO YASIR BILAT SCREEN [[id number]] CLINICAL HISTORY: ??This is an asymptomatic 66 y.o. patient. INDICATION FOR EXAM: Mammogram Screening. TECHNIQUE: CC & MLO views were obtained. ??This study was evaluated with the assistance of Computer-Aided Detection. Breast Tomosynthesis was used in interpretation. COMPARISON FILM: Yes 04/27/21 [facility] HelpAround 04/15/22 [facility] FINDINGS: ??The breasts are extremely dense, which [...] - 199 mg/dL 06/15/2018 2:24 PM CDT [facility] TRAL LABORATORY TRIGLYCERIDES 44 <150 mg/dL 06/15/2018 2:24 PM CDT [facility] HDL CHOLESTEROL 78 >40 mg/dL 8 2:24 PM CDT [facility] NON-HDL CHOLESTEROL 111 <145 mg/dl 06/15/2018 2:24 PM CDT [facility] TR[facility] LAB[facility] CHOL/HDL RATIO 2.42 <4.50 06/15/2018 2:24 PM CDT [facility] LDL CHOLESTEROL 102 <=130 mg/dL 06/15/2018 2:24 PM CDT [facility] TRAL LABORATORY PROVIDER ORDERED STATUS RANDOM 06/15/2018 2:24 PM CDT [facility] TR[facility] LABORATORY Blood BLOOD SPECIMEN / Unknown Venipuncture / Unknown 06/14/2018 6:07 PM CDT 06/14/2018 6:08 PM CDT Danyell Otoole NP CHEMISTRY [facility] [address] [place] [address], from Last 3 Months or Most Recently Relevant to Health Maintenance Advance Directives Documents on File Type Date Recorded Patient Merchandise Flow Manager Expl anation Healthcare Directive 04/18/2017 12:00 AM Healthcare Directive 03/22/2017 11:00 AM GERTRUDIS HERNANDEZ, 03/16/17 * Full Code (Latest Code Status on File) Date Activated Date Inactivated Comments 04/18/2017 9:52 PM 04/21/2017 5:03 PM * Full Code Date Activated Date Inactivated Comments 04/18/2017 12:06 PM 04/18/2017 9:51 PM Question Answer Comments Code Status Discussion: Discussed Care Teams Wheel And Pinion Inspector Relationship Specialty Start Date End Date Pcp, No . PCP - General 04/12/22
--- OUTSIDE RECORDS SUMMARY | 2024-06-28 13:35 | XMS_ITS | Encounter Summary ---
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 [address] [place] [address] [facility] Referral ID Status Reason Start Date Expiration Date Visits Re quested Visits Authorized [id number] Closed 02/21/2024 02/20/2025 1 1 Encounter Details Date Type Department Care Team (Latest Contact Info) Description 04/15/2024 12:04 PM CDT - 04/15/2024 11:59 PM CDT Hospital Encounter Department of Radiology, [facility] in [place], [place] [address] [place] [phone] Buddy Holland M.D. [address] [place] [phone] Fusion Cervical Spine Status Post; Stenosis Spinal Cervical Discharge Disposition: Home or Self Care Social History Tobacco Use Types Packs/Day Years Used Date Smoking Tobacco: Never Smokeless Tobacco: Never Alcohol Use Standard Drinks/Week Comments Yes 3 (1 standard drink = 0.6 oz pur e alcohol) [facility] Utilities Answer Date Recorded In the past 12 months has [employer], gas, oil, or water [employer] threatened to shut off services in your [...] week 07/01/2022 How often do you attend [facility] or faith services? More than 4 times per year 07/01/2022 Do you belong to any clubs o r organizations such as congregational groups, unions, fraternal or athletic groups, or [...] care, and heating? Not very hard 08/02/2023 [facility] of Occupat ional Health - Occupational [...] your living situation today? I have a [facility] place to live 03/14/2024 Education Answer Date Recorded What is the highest level of school you have completed or the highest degree you have received? 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 [address] [place] [phone] Darius Thompson, P.T., D.P.T., [facility] [address] [place] [phone] documented as of this encounter Procedures Procedure [...] Cervical documented in this encounter Care Teams College Director Relationship Specialty Start Date End Date Elsewhere, Pcp PCP - General Family Medicine 02/11/21 documented as of this encounter
--- OUTSIDE RECORDS SUMMARY | 2024-06-28 13:35 | XMS_ITS | Encounter Summary ---
Author Organization [facility] Address [address] [place] [id number] Care Team Providers Care Lyft Driver Name Role Phone Elsewhere, Pcp Primary Care Provider Unavailabl e Encounter Details Date Type Department Care Team (Late st Contact Info) Description 04/12/2024 Clinical Communication Department of Orthopedic Surgery in [place], [place] [address] [place] [phone] Laura Alarcon P.A.-C., M.S. [address] [place] [phone] Social History Tobacco Use Types Packs/Day Years Used Date Smoking Tobacco: Never Smokeless Tobacco: Never Alcohol Use Standard Drinks/Week Comments Yes 3 (1 standard drink = 0.6 oz pur e alcohol) [facility] Utilities Answer Date Recorded In the past 12 months has [facility] [employer], gas, oil, or water [employer] threatened to shut off services in your [...] very hard 08/02/2023 [facility] of Occupat ional Health - Occupational Stress [...] your living situation today? I have a [facility] place to live 03/14/2024 Education Answer Date Recorded What is the highest level of school you have completed or the highest degree you have received? 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 [address] [place] [phone] Darius Thompson P.T., D.P.T., [facility] [address] [place] [phone] documented as of this encounter Visit Diagnoses Not on filedocumented in this encounter Care Teams Lyft Driver Relationship Specialty Start Date End Date Elsewhere, Pcp PCP - General Family Medicine 02/11/21 documented as of this encounter
== END 2024-06-28 07:36 | disposition home or self-care (01) ==
LOC: NFLDREF 13:31
PROVIDERS: PCP Internal Medicine; Referring Provider Internal Medicine; Visit Provider Internal Medicine
DX: M85.80 Other specified disorders of bone density and structure, unspecified site (principal)
CPT/HCPCS: 82306

== ENCOUNTER 2024-08-06 15:15 | Outpatient (RCR) | payer BC, SELFPAY | END 2024-08-06 16:52 | disposition home or self-care (01) | PROVIDERS: PCP Internal Medicine; Visit Provider Physician Assistant | DX: M67.912 Unspecified disorder of synovium and tendon, left shoulder (principal); Z51.89 Encounter for other specified aftercare | CPT/HCPCS: 97110; 97140; 97161 ==

== ENCOUNTER 2024-11-11 15:30 | Outpatient (RCR) | payer BC, SELFPAY | END 2025-03-11 23:59 | disposition home or self-care (01) | PROVIDERS: PCP Internal Medicine; Visit Provider Orthopaedic Surgery | DX: G62.9 Polyneuropathy, unspecified (principal); M48.061 Spinal stenosis, lumbar region without neurogenic claudication; Z51.89 Encounter for other specified aftercare | CPT/HCPCS: 97110; 97161 ==

== ENCOUNTER 2025-08-13 14:56 | Outpatient (CLI) | payer BC, SELFPAY ==
--- NOTE | 2025-08-13 15:00 | CRLHL7_ITS ---
For Patients: As a result of the Century Cures Act, medical imaging exams and procedure reports are released immediately into your electronic medical record. You may view this report before your referring provider. If you have questions, please contact your health care provider. INDICATION: BILATERAL SCREENING MAMMOGRAM, ASYMPTOMATIC 70 Y/O FEMALE COMPARISON: 06/07/2024, 06/02/2023 TECHNIQUE: Digital mammogram in CC and MLO projections including computer-aided detection (CAD) and tomosynthesis. BREAST COMPOSITION: The breasts are heterogeneously dense, which may obscure small masses. FINDINGS: No suspicious findings. ASSESSMENT: BI-RADS 1 Negative RECOMMENDATION: Annual screening mammogram. A lay language report of this examination will be provided to the patient. Dictated by: Addis Escalante MD @ 08/15/2025 13:28:30 (Electronically Signed)
== END 2025-08-13 14:57 | disposition home or self-care (01) ==
LOC: MAMMO 14:56
PROVIDERS: PCP Internal Medicine; Visit Provider Internal Medicine
DX: Z12.31 Encounter for screening mammogram for malignant neoplasm of breast (principal); R92.333 Mammographic heterogeneous density, bilateral breasts
CPT/HCPCS: 77063; 77067